=== PATIENT | male | born 1975 | race Caucasian/White ===

== ENCOUNTER 2018-06-02 22:20 | Inpatient (IN) | payer OTHER, SELFPAY ==
[2018-06-02 22:37] VITALS: BP 163/96; PULSE 77; RESP 16; TEMP 36.6; O2SAT 99; BMI 27.7
--- NOTE | 2018-06-02 22:42 | DI.RAD.S_ITS ---
PROCEDURE: XR TIBIA FIBULA RT 2V INDICATIONS: deformity TECHNIQUE: 2 views of the tibia and fibula were acquired. COMPARISON: None. FINDINGS: Bones: Comminuted mid left fibular diaphyseal fracture with large butterfly fragment (also with comminuted appearance). Oblique distal left tibial diaphyseal fracture also comminuted. Severe lateral displacement of the distal tibial fragment, at least one shaft width. There is lateral angulation of the distal fibular fragments. There is also mild anterior displacement of the dominant distal tibial fragment. Soft tissues: No suspicious soft tissue calcifications or masses. IMPRESSION: Comminuted left tibial and fibular fractures as above. Dictated by: Yaya Tong M.D. on 06/03/2018 at 7:28 Approved by: Yaya Tong M.D. on 06/03/2018 at 7:29
--- NOTE | 2018-06-02 23:41 | ED_ITS ---
HPI - Extremity Injury (Lower) General Chief Complaint: Extremity Injury, Lower Stated Complaint: Broken Lt leg Time Seen by Provider: 06/02/18 23:24 Source: patient and family Limitations: no limitations History of Present Illness HPI Narrative: This is a 43-year-old male who comes to the emergency department with suspected lower extremity fracture. Patient states that he was walking and slipped going downhill. He sort of twisted his leg and went down with all of his weight on it. He has deformity of the lower extremity. He had quite a bit of pain. He did receive fentanyl EN route with EMS which helped although it made him quite nauseated he defers any additional pain medicine at this time. He does have some decreased sensation in his toes but he states that is chronic secondary to his insulin-dependent diabetes. He does have feeling in the upper portion of the foot and that has not changed. He denies any other injuries, he denies hitting his head, no neck or back pain. Denies any other extremity injury. He states that his blood sugar was high with EMS. Per nursing it was 260, he states that he did not ingest his insulin pump dosage. His last meal was about 530 this evening. Related Data Home Medications Medication Instructions Recorded Confirmed losartan 50 mg PO DAILY 06/03/18 06/03/18 Allergies Allergy/AdvReac Type Severity Reaction Status Date / Time No Known Drug Allergies Allergy Verified 06/03/18 02:18 Review of Systems Review of Systems All systems reviewed & are unremarkable except as noted in HPI and below ENT Ears, Nose, Mouth, and Throat: Denies neck pain Cardiovascular Denies syncope and Denies dyspnea Respiratory Reports cough and Denies dyspnea Gastrointestinal Gastrointestinal: Reports nausea and Reports vomiting Musculoskeletal Reports as per HPI, Denies back pain, Reports deformity, Denies neck pain and Reports numbness Integumentary/Breasts Denies bleeding lesions Neurologic Denies syncope and Reports numbness [facility] Medical History Hypertension (Acute) Insulin dependent diabetes mellitus (Acute) 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 HEENT: Head normocephalic, atraumatic, EOMI, pupils reactive, face symmetric, moist mucous membranes NECK: Supple, full range of motion CARDIOVASCULAR: Regular rate and rhythm without murmurs, rubs or gallops. RESPIRATORY: Breath sounds equal bilaterally, no wheezes rales or rhonchi. ABDOMEN: Soft, nontender. Normoactive bowel sounds all 4 quadrants. No guarding or rebound, rigidity, no mass, patient has insulin pump. EXTREMITIES: Patient's left lower extremity is in a splint, he has some external rotation of the foot which is not and alignment with his lower leg, patient does have a pulse Doppler, he has decreased sensation over the toes which he states is chronic and normal. He does have sensation to light touch over the dorsum of the foot and leg. No edema is noted. There is no bruising noted. NEUROLOGICAL: Cranial nerves II through XII grossly intact. Moving all other extremities SKIN: Warm, dry, no petechiae, no rashes or lesions. Initial Vital Signs Initial Vital Signs: Vital Signs Temperature 97.8 F 06/02/18 22:37 Pulse Rate 77 06/02/18 22:37 Respiratory Rate 16 06/02/18 22:37 Blood Pressure 163/96 H 06/02/18 22:37 Pulse Oximetry 99 06/02/18 22:37 Procedures Orthopedic Fracture Reduction Fracture #1: Time Out Performed: Yes Side: left Fracture Reduction Location: tibia and fibula Analgesia: procedural sedation Technique: direct manipulation Post Reduction X-rays Demonstrate: acceptable reduction Post-reduction neuro exam: intact and no change Post-reduction vascular exam: intact Splint Applied: Yes Patient Tolerated Procedure: Well (patient did have hypoventilation and was bagged for several minutes. Patient then resumed ventilations on his own. ) Procedural Sedation Patient Age: Patient is 5yrs or older Indication: fracture/dislocation reduction ASA Class: II Mallampati Airway Classification: Class II Time of Last PO Intake: 17:45 Preparation: air sampling and monitoring applied, pulse oximeter, capnometry used, supplemental O2 applied, suction/airway equipment at bedside and IV secured Ketamine dose (mg): 150 ED Sedation Level: Moderate (Concious) Complications: hypoventilation (patient had decreased CO2 and was bagged for several minutes. Patient then resumed breathing on own with co2 levels appropriate. ) Interventions: Assist by BVM and Oxygen applied Course Orders Ordered: ED Orders 06/02/18 22:42 XR tibia fibula LT 2V Stat 06/03/18 00:32 XR tibia fibula LT 2V Stat 06/03/18 01:17 Basic Metabolic Panel Stat Complete Blood Count AUTO DIFF Stat Partial Thromboplastin Time Stat Prothrombin Time INR Stat 06/03/18 02:35 Consult to Discharge Planning Routine Acetaminophen (Tylenol) 1,000 mg PO Q8HR PRN PRN Reason: Pain, Moderate (4-6) Hydrocodone Bitart/Acetaminophen ([place] 5/325) 2 tab PO Q4HR PRN PRN Reason: Pain, Severe (7-10) Heparin Sodium (Porcine) (Heparin) 5,000 unit SUBCUT BID LUCIE Sodium Chloride (Normal Saline 0.9%) 1,000 mls @ 100 mls/hr IV CONT LUCIE Stop: 06/03/18 12:29 Ibuprofen (Advil) 600 mg PO Q8HR PRN PRN Reason: Pain, Moderate (4-6) Consultations Consultation #1: Dr. Yuan, he asked that patient be admitted for repair. Patient does have insulin-dependent diabetes so will be admitted to medicine with orthopedic consultation. Time: 00:47 Consultation #2: Spoke with the [facility]ist who accepts patient for observation and management of insulin-dependent diabetes. Labs ordered, CBC , BMP and coags. Patient's sugar is 260 in the department. Time: 01:10 Vital Signs - 8 hr 06/02/18 22:37 06/03/18 00:10 06/03/18 00:25 Temperature 97.8 F Pulse Rate 77 89 105 H Respiratory Rate 16 18 20 Blood Pressure 163/96 H Blood Pressure [Right Arm] 215/119 H Pulse Oximetry 99 100 06/03/18 00:31 06/03/18 00:36 06/03/18 00:42 Temperature Pulse Rate 108 H 95 H 92 H Respiratory Rate 22 14 12 Blood Pressure Blood Pressure [Right Arm] 210/112 H 210/104 H 191/102 H Pulse Oximetry 100 100 100 06/03/18 00:49 06/03/18 01:23 06/03/18 01:55 Temperature Pulse Rate 86 84 84 Respiratory Rate 12 18 12 Blood Pressure 156/98 H Blood Pressure [Right Arm] 170/98 H 153/91 H Pulse Oximetry 100 100 100 06/03/18 02:00 Temperature 97.8 F Pulse Rate 82 Respiratory Rate 21 Blood Pressure 148/96 H Blood Pressure [Right Arm] Pulse Oximetry 100 MDM - Extremity Injury (Lower) Lab Data Attestation: I reviewed the patient's lab results. Result diagrams: 06/03/18 01:17 06/03/18 01:17 Lab Results 06/03/18 06/03/18 06/03/18 Range/Units 01:17 01:17 01:17 WBC 11.0 (4.5-11.0) X10^3/uL RBC 4.39 L (4.5-5.9) X10^6/uL Hgb 13.0 L (13.5-17.5) g/dL Hct 37.3 L (41-53) % MCV 85.0 (80-100) fL MCH 29.7 (26-34) PG MCHC 34.9 (30-36) % RDW 13.3 (11.6-14.8) % Plt Count 181 (150-400) X10^3/uL Neut % (Auto) 84.8 H (50-75) % Lymph % (Auto) 10.3 L (25-40) % [place] % (Auto) 4.2 (3-14) % Eos % (Auto) 0.3 L (2-4) % Baso % (Auto) 0.4 (0-2) % Neut # (Auto) 9400 H (8814-0316) /uL PT 11.5 (10.1-12.7) SECONDS INR 1.1 (0.9-1.3) APTT 22 L (26.4-36.2) SECONDS Sodium 137 (137-145) mmol/L Potassium 5.1 (3.4-5.1) mmol/L Chloride 106 (98-107) mmol/L Carbon Dioxide 24 (22-32) mmol/L BUN 24 H (9-20) mg/dL Creatinine 1.50 H (0.66-1.25) mg/dL Estimated GFR 51.3 L (>60) mL/min BUN/Creatinine Ratio 16.0 (6-22) Glucose 308 H (70-100) mg/dL Calcium 9.0 (8.4-10.2) mg/dL Point of Care Testing Glucose POC 292 Imaging Data Left lower extremity x-ray: Attestation: I personally reviewed and interpreted this imaging study as follows: My impression: Patient has midshaft comminuted swells angulated spiral fracture of the fibula. Patient also has a distal tibial fracture that appears to be spiral with misalignment. Tib-fib left: Attestation: I personally reviewed and interpreted this imaging study as follows: My impression: Post reduction film. There is somewhat improved alignment of fractures. MDM Narrative Medical decision making narrative: Patient tolerated conscious sedation with the some improvement of alignment although he did have some hypoventilation and was bagged for several minutes. Um patient's mother as well as patient however made aware of this for future sedations. Dr. Yuan was consulted and patient asked to be admitted for repair. Patient has insulin-dependent diabetes so Dr. Casper was consulted for hospitalist management. Patient had labs ordered, Accu-Chek was 260. Patient continues to have his insulin pump in place. Discharge Plan Departure Patient Disposition: Admitted as Observation Clinical Impression: Fracture of tibia and fibula, Insulin dependent diabetes mellitus Discharge Date/Time: 06/03/18 01:57 Interventions: ED Discharge Assessment Last Done: 06/03/18 01:55 Admit Date/Time: 06/03/18 01:36 Admit Provider: Delia Casper
[2018-06-03] VITALS (36 sets, daily range): BP systolic 129–215; BP diastolic 86–119; PULSE 80–108; RESP 8–22; TEMP 36.2–36.8; O2SAT 96–140; BMI 27.1
--- NOTE | 2018-06-03 | DI.RAD.S_ITS ---
PROCEDURE: XR TIBIA FIBULA RT 2V INDICATIONS: LEFT TIBIAL NAILING TECHNIQUE: 4 intraoperative fluoroscopic images of the tibia and fibula were acquired. COMPARISON: [facility], CR, XR TIBIA FIBULA LT 2V, 06/02/2018, 23:47. FINDINGS: Intraoperative fluoroscopic images of left tibia and fibula shows internal fixation of distal tibial shaft with intramedullary jonathan and fixation screws in place. Alignment of left lower leg is anatomic. IMPRESSION: Fluoroscopy guidance was provided intraoperatively for internal fixation of distal tibial shaft. Dictated by: Pedro Valdez M.D. on 06/03/2018 at 18:25 Approved by: Pedro Valdez M.D. on 06/03/2018 at 18:27
--- NOTE | 2018-06-03 00:32 | DI.RAD.S_ITS ---
PROCEDURE: XR TIBIA FIBULA RT 2V INDICATIONS: post-reduction TECHNIQUE: 2 views of the tibia and fibula were acquired. COMPARISON: [facility], CR, XR TIBIA FIBULA LT 2V, 06/02/2018, 22:46. FINDINGS: Bones: There is improved alignment, following status post tibial and fibular fracture reduction and placement of cast. Mild residual posterior and lateral displacement of dominant tibial fracture fragment. Soft tissues: No suspicious soft tissue calcifications or masses. IMPRESSION: Improved alignment, status post reduction of tibial and fibular fractures, and placement of cast. Dictated by: Yaya Tong M.D. on 06/03/2018 at 7:44 Approved by: Yaya Tong M.D. on 06/03/2018 at 7:45
[2018-06-03 01:32] LABS: Add Manual Diff / Slide Review NO; Basophils Percent Auto 0.4 % (0-2); Eosinophils Percent Auto 0.3 % (2-4); Hematocrit 37.3 % (41-53); INR 1.1 (0.9-1.3); Lymphocytes Percent Auto 10.3 % (25-40); Mean Corpuscular HGB Conc 34.9 % (30-36); Mean Corpuscular Hemoglobin 29.7 PG (26-34); Monocytes Percent Auto 4.2 % (3-14); Neutrophils Absolute Auto 9400 /uL (3000-5900); Neutrophils Percent Auto 84.8 % (50-75); Platelet Count 181 X10^3/uL (150-400); Prothrombin Time 11.5 SECONDS (10.1-12.7); Red Blood Cell Count 4.39 X10^6/uL (4.5-5.9); Red Cell Distribution Width 13.3 % (11.6-14.8)
[2018-06-03 01:35] LABS: PTT Partial Thromboplastin Tim 22 SECONDS (26.4-36.2)
[2018-06-03 01:37] LABS: Blood Urea Nitrogen 24 mg/dL (9-20); Carbon Dioxide 24 mmol/L (22-32); Chloride 106 mmol/L (98-107); Estimated Glomerular Filt Rate 51.3 mL/min (>60); Glucose 308 mg/dL (70-100); HEMOLYSIS < 15 (0-50); Potassium 5.1 mmol/L (3.4-5.1); Sodium 137 mmol/L (137-145)
--- NOTE | 2018-06-03 02:38 | PM.HP.1 ---
History of Present Illness Date Patient Seen: 06/03/18 Time Patient Seen: 02:00 Chief complaint: left leg pain Narrative: The patient is a 43-year-old male with PMH significant for HTN, DM 1T w/ sequela for diabetic retinopathy and neuropathy. Patient presented to the ED on 06/02/2018 with complaints of left lower extremity pain Earlier in the day patient was walking downhill, slipped on wet grass and fell onto his left lower extremity. He was unable to get up on his own. Reports pain with movement of the LLE. Associated symptoms include: diminished sensation and diminished ROM of the affected extremity. Denies loss of consciousness or injury to the head. ED w/u revealed a fracture and misalignment of the distal tibia and fibula, consequently he underwent a successful reduction of the orthopedic fraction while in the ED. No prior known fractures or recurrent falls. Pain was treated w/ Fentanyl, from which he experienced GI side effects. Patient denies headache, dizziness, lightheadedness, and abdominal pain. No known underlying history of cardiac events, cerebrovascular events, or thrombosis. He is known to have a degree of renal insufficiency, CKD Stage III w/ sCr 1.5. Reports a fair control of his diabetes w/ HgbA1C in the 7% range (on an insulin pump). Prior to the event patient reports adequate exercise tolerance / opacity, able to perform at least 4 METs of activities of daily living without difficulty. 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) Family & Social History Family History: Reviewed 06/03/[address] Social History: household members none Prior Living Arrangements Apartment/Condo Safety & Behavioral: Feels Safe in Current Yes Environment Been Physically Hurt or No Threatened By a Person Suicidal Ideation Description None Suicide Plan Description No Plan Tobacco & Substance use: Smoking Status Never smoker alcohol intake frequency holiday/special occasion Substance Use Type does not use Meds Home Medications Medication Instructions Recorded Confirmed Type losartan 50 mg PO DAILY 06/03/18 06/03/18 History Allergies Allergy/AdvReac Type Severity Reaction Status Date / Time No Known Drug Allergies Allergy Verified 06/03/18 02:18 Review of Systems Review of Systems All systems reviewed & are unremarkable except as noted in HPI and below Musculoskeletal Musculoskeletal: Reports deformity, Reports limited range of motion and Reports tingling Neurologic Neurologic: Reports tingling Exam Vital Signs (past 8 hours): - 06/02/18 22:37 06/03/18 00:10 06/03/18 00:25 Temperature 97.8 F Pulse Rate 77 89 105 H Respiratory Rate 16 18 20 Blood Pressure 163/96 H Blood Pressure [Right Arm] 215/119 H Pulse Oximetry 99 100 06/03/18 00:31 06/03/18 00:36 06/03/18 00:42 Temperature Pulse Rate 108 H 95 H 92 H Respiratory Rate 22 14 12 Blood Pressure Blood Pressure [Right Arm] 210/112 H 210/104 H 191/102 H Pulse Oximetry 100 100 100 06/03/18 00:49 06/03/18 01:23 06/03/18 01:55 Temperature Pulse Rate 86 84 84 Respiratory Rate 12 18 12 Blood Pressure 156/98 H Blood Pressure [Right Arm] 170/98 H 153/91 H Pulse Oximetry 100 100 100 06/03/18 02:00 Temperature 97.8 F Pulse Rate 82 Respiratory Rate 21 Blood Pressure 148/96 H Blood Pressure [Right Arm] Pulse Oximetry 100 Oxygen Delivery Method Room Air Narrative Exam Narrative: Constitutional: NAD Head: NC/AD EENT: Gaze conjugate, pupils equal and reactive, sclera anicteric, external ears intact without epistaxis, Oropharynx without exudate or lesions Neck: No JVD Chest / Resp: Equal chest rise, CTAB, respiratory effort unlabored, on supplemental O2 for comfort CV: S1S2, no murmur GI: soft, NT, ND, normoactive BS, no organomegaly Skin: warm, dry, intact; no lesions or bruising noted Neuro: AOx3, no focal neurological deficits Extremity: RLE - no edema, slightly cool to touch, sensation timinished, pulse 1+ (palpable) LLE - in a cast, toes w/ diminished sensation Psych: normal mood and affect Objective Labs Result Diagrams: 06/03/18 01:17 06/03/18 01:17 Labs: Laboratory Results - last 24 hr 06/03/18 06/03/18 06/03/18 01:17 01:17 01:17 WBC 11.0 RBC 4.39 L Hgb 13.0 L Hct 37.3 L MCV 85.0 MCH 29.7 MCHC 34.9 RDW 13.3 Plt Count 181 Neut % (Auto) 84.8 H Lymph % (Auto) 10.3 L [place] % (Auto) 4.2 Eos % (Auto) 0.3 L Baso % (Auto) 0.4 Neut # (Auto) 9400 H PT 11.5 INR 1.1 APTT 22 L Sodium 137 Potassium 5.1 Chloride 106 Carbon Dioxide 24 BUN 24 H Creatinine 1.50 H Estimated GFR 51.3 L BUN/Creatinine Ratio 16.0 Glucose 308 H Calcium 9.0 Assessment & Plan Plan: Assessment/Plan Narrative: Tibia and fibula fracture - consult orthopedic surgery (ED has spoken to orthopedic surgery) - NPO, for potential surgery in am - IVF x1L, then d/c or re-evaluate volume status - Neurovascular checks, LLE, Q4H - CBC, BMP, coags - Supportive care: pain control, anti-emetics prn - VTE prophylaxis, starting post-op (ordered to be given 06/03 at 2100) Acute Pain Patient wishes to avoid opioids due to GI discomfort - Tylenol 1000 mg Q8H prn - Will need to avoid or be mindful with NSAIDs d/t renal insufficiency DM 1T w/ hyperglycemia (on an insulin pump) - AC/HS accu-checks - Will allow patient to adjust his own pump and monitor glucose, if elevated then will place on a SSI CKD III (sCr 1.5 / GFR 51.3) - Trend renal fx and electrolytes - Hold ARB, not recommended for sCr > 1.5 - Avoid nephrotoxic agents and avoid renal hypoperfusion - IVF Essential HTN, controlled - Trend BP Quality VTE Deep Vein Thrombosis/Pulmonary Embolism Present on Admission: No
[2018-06-03] MEDS: SODIUM CHLORIDE 0.9% 1,000 ML 100 ML IV ×2 (02:50→13:13)
--- NOTE | 2018-06-03 03:17 | PC.NURSE ---
0200 Pt. admitted from ER, accompanied by his parents. LLE immobilizer inplaced & elevated with pillow. Bilateral neuropathy to BLE, able to wiggle his left toes. Reported pain level 6/10, but declined any pain meds. @ this time. Had Own Insulin Pump, to left lower abdomen, NPO at this time for possible surgery this morning. Oriented to his call light, bed & TV controls, placed on fall precautions. Encouraged not to get OOB without any assistance, call light within reached & bed alarm activated. Will monitor.
--- NOTE | 2018-06-03 06:24 | PC.NURSE ---
0551 CBG was 286 Pt. gave self 3.5 units bolus, currently pump infusing 1.4 units/hr. per pt. report & I will change to 2 units/hr @ 0800. Instructed to log Insulin pump adjustment & bolus. Requested to change CBG every 4-6 hrs. while NPO. Will report to day RN. declined pain meds. at this time, ice pack applied to LLE's. RD Casper came to see pt. this morning.
[2018-06-03 08:47] LABS: Add Manual Diff / Slide Review NO; Basophils Percent Auto 0.5 % (0-2); Eosinophils Percent Auto 0.7 % (2-4); Hematocrit 31.6 % (41-53); Hemoglobin 11.2 g/dL (13.5-17.5); Lymphocytes Percent Auto 18.3 % (25-40); Mean Corpuscular HGB Conc 35.5 % (30-36); Mean Corpuscular Volume 84.4 fL (80-100); Monocytes Percent Auto 6.5 % (3-14); Neutrophils Absolute Auto 6600 /uL (3000-5900); Platelet Count 166 X10^3/uL (150-400); Red Blood Cell Count 3.74 X10^6/uL (4.5-5.9); Red Cell Distribution Width 13.2 % (11.6-14.8)
[2018-06-03 08:59] LABS: BUN Creatinine Ratio 16.2 (6-22); Blood Urea Nitrogen 21 mg/dL (9-20); Calcium 7.3 mg/dL (8.4-10.2); Carbon Dioxide 24 mmol/L (22-32); Chloride 110 mmol/L (98-107); Estimated Glomerular Filt Rate > 60.0 mL/min (>60); Glucose 206 mg/dL (70-100); HEMOLYSIS < 15 (0-50); Potassium 3.8 mmol/L (3.4-5.1); Sodium 142 mmol/L (137-145)
--- NOTE | 2018-06-03 09:34 | PT.IPNOTE ---
Physical Therapy Treatment Note Notes Pt is undergoing surgical repair of L tib/fx fracture today at [address] Yuan. Will hold PT eval until tomorrow.
--- NOTE | 2018-06-03 12:21 | P.PN_ITS ---
Subjective Date Patient Seen: 06/03/18 Time Patient Seen: 12:13 Interval history: FOLLOW UP ON L TIBIAL/FIBULAR FRACTURES, WELL HTN, DM, JENNIFER Patient seen at bedside. Doing well. No overnight events. Will be going for surgery later on today. Currently NPO Exam Vital Signs (past 8 hours): - 06/03/18 05:40 06/03/18 07:00 06/03/18 09:01 Temperature 98.3 F 98.1 F Pulse Rate 83 86 Respiratory Rate 20 16 Blood Pressure 151/94 H 148/91 H Pulse Oximetry 99 99 99 Oxygen Delivery Method Room Air Narrative Exam Narrative: General: No acute distress, AAO x3 HEENT: PERRLA bilaterally, EOMI bilaterally Neck: Supple, no LAD or JVD CV: Regular rate rhythm, no murmurs or gallops Respiratory: Clear to auscultation bilaterally, no wheezing or crackles GI: Positive bowel sounds in all quadrants, nontender, soft, no organomegaly. Insulin pump present Skin: Warm, dry, no lesions or bruising present Neuro: No focal deficits Musculoskeletal: Moves all extremities bilaterally. Left lower extremity is in a cast Objective Labs Result Diagrams: 06/03/18 Unknown 06/03/18 Unknown Labs: Laboratory Results - last 24 hr 06/03/18 06/03/18 06/03/18 01:17 01:17 01:17 WBC 11.0 RBC 4.39 L Hgb 13.0 L Hct 37.3 L MCV 85.0 MCH 29.7 MCHC 34.9 RDW 13.3 Plt Count 181 Neut % (Auto) 84.8 H Lymph % (Auto) 10.3 L [place] % (Auto) 4.2 Eos % (Auto) 0.3 L Baso % (Auto) 0.4 Neut # (Auto) 9400 H PT 11.5 INR 1.1 APTT 22 L Sodium 137 Potassium 5.1 Chloride 106 Carbon Dioxide 24 BUN 24 H Creatinine 1.50 H Estimated GFR 51.3 L BUN/Creatinine Ratio 16.0 Glucose 308 H Calcium 9.0 06/03/18 06/03/18 Unknown Unknown WBC 9.0 RBC 3.74 L Hgb 11.2 L Hct 31.6 L MCV 84.4 MCH 30.0 MCHC 35.5 RDW 13.2 Plt Count 166 Neut % (Auto) 74.0 Lymph % (Auto) 18.3 L [place] % (Auto) 6.5 Eos % (Auto) 0.7 L Baso % (Auto) 0.5 Neut # (Auto) 6600 H PT INR APTT Sodium 142 Potassium 3.8 D Chloride 110 H Carbon Dioxide 24 BUN 21 H Creatinine 1.30 H Estimated GFR > 60.0 BUN/Creatinine Ratio 16.2 Glucose 206 H D Calcium 7.3 L Assessment & Plan Plan: Assessment/Plan Narrative: 1. L tibial and fibular fractures - S/P reduction in ED, with casting - Scheduled for surgery later on today - NPO at this time, with continuous IVF at 100cc/hr - Continue tylenol and norco for pain control 2. DM Type I - With neuropathy and retinopathy - On insulin pump - Monitor daily accuchecks, allow machine to do other glucose control 3. JENNIFER - Unsure if patient has CKD - improving, Cr 1.5->1.3 - Will hold Losartan in light of JENNIFER but will resume once renal function stabilizes - IVF to continue 4. Essential HTN, controlled - Continue to monitor BP Quality VTE Deep Vein Thrombosis/Pulmonary Embolism Present on Admission: No
--- NOTE | 2018-06-03 14:27 | CM.DANOTE ---
DCP/Assessment: Reviewed chart. Patient is a 43yr old male admitted to [facility] after a fall. Primary payor is 1)[place]. PCP is [facility] in [place]. Patient with h/o diabetes on insulin pump. Met with patient and parents at bedside explained CM/SW role. Patient alert and oriented, resting comfortably in bed at time of visit. Patient reports that he is scheduled to have surgery later today with Dr. Yuan. At this time d/c needs and date unknown. Patient reports that he will be staying locally with his parents during recovery. Notified patient and family that CM team would continue to follow throughout hospitalization. All appreciative, aware and agreeable. P: Anticipate home. Follow closely for d/c planning needs. DONA Johnson Discharge Planning/Care Management CM Discharge Assessment Start: 06/03/18 14:22 Freq: Status: Active Protocol: Document 06/03/18 14:22 KJS (Rec: 06/03/18 14:27 KJS [id number]) Discharge Planning Assessment Assigned Dude Wrangler DONA Johnson Contact Information Dee Perez (mother) [phone] Advance Directives? No Advance Directives on File No History Provided By Patient Parents Has Patient been admitted in last 30 No days? Prior Living Arrangements Apartment/Condo Household Members none Type of transporation used prior to Drives own vehicle admit Willing to Return to Facility? No Independent with ADL's Yes Is patient alert and oriented? Yes Caregiver for Another No Comment Insulin Pump Comment Pending Barriers to Discharge No Comment Patient going to stay at his parents residence in [place] at time of d/c. Address: [address] [place] [address] Discharge Plan Home Transportation Arrangement Family to provide transportation Additional Comment D/C needs unknown at this time . Whiteboard Updated in Patient Room with Yes name and ext. # of Dude Wrangler Review Status In Process Please Provide Date Initial DC 06/03/18 Assessment Was Performed Next Review Type Continued Stay Review
--- NOTE | 2018-06-03 16:09 | PM.PREOP ---
Pre-operative Note Interval Note Pre-op Check: Yes History & Physical Reviewed by Physician and Yes Exam Performed Changes: No
--- NOTE | 2018-06-03 16:10 | PM.CN ---
History of Present Illness Date Patient Seen: 06/03/18 Time Patient Seen: 16:11 Chief complaint: left leg pain Reason for consult: Left tib-fib fracture Requesting provider: Jessi Ward Narrative: The patient is a 43-year-old man as has the C4 evaluation treatment of the left hip it fracture. He reports he was walking down an embankment yesterday that was wet and he slipped. He felt a cracking sensation in his left leg. He had immediate pain and deformity and was unable to bear weight. X-rays at the emergency room revealed a displaced distal 3rd tib-fib fracture with a midshaft fibular fracture. He denies previous problems with the leg. He is a type 1 diabetic. He does have peripheral neuropathy of the lower extremity. 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) Family History Grandfather Heart disease Heart attack Social History household members: none Smoking Status: Never smoker Meds Home Medications Medication Instructions Recorded Confirmed Type losartan 50 mg PO DAILY 06/03/18 06/03/18 History Allergies Allergy/AdvReac Type Severity Reaction Status Date / Time fentanyl AdvReac Intermediate Nausea Verified 06/03/18 15:30 Review of Systems Review of Systems All systems reviewed & are unremarkable except as noted in HPI and below Exam Vital Signs (past 8 hours): - 06/03/18 09:01 06/03/18 12:42 06/03/18 15:14 Temperature 98.2 F 97.9 F Pulse Rate 80 89 Respiratory Rate 16 16 Blood Pressure 129/90 155/89 H Pulse Oximetry 99 100 100 Oxygen Delivery Method Room Air Const General: cooperative Orientation: alert and oriented x3 Cardio Rate: regular rate Rhythm: regular rhythm Skin General: no rashes or lesions noted Neuro Other: The patient does report decreased sensation in both lower extremities. Motor strength is grossly intact were testable. He is in a lower leg splint. Extrem Other: The lower leg is in a splint. The toenails are thickened and discolored. No significant skin lesions are noted. Compartments are supple. Objective Labs Result Diagrams: 06/03/18 Unknown 06/03/18 Unknown Labs: Laboratory Results - last 24 hr 06/03/18 06/03/18 06/03/18 01:17 01:17 01:17 WBC 11.0 RBC 4.39 L Hgb 13.0 L Hct 37.3 L MCV 85.0 MCH 29.7 MCHC 34.9 RDW 13.3 Plt Count 181 Neut % (Auto) 84.8 H Lymph % (Auto) 10.3 L [place] % (Auto) 4.2 Eos % (Auto) 0.3 L Baso % (Auto) 0.4 Neut # (Auto) 9400 H PT 11.5 INR 1.1 APTT 22 L Sodium 137 Potassium 5.1 Chloride 106 Carbon Dioxide 24 BUN 24 H Creatinine 1.50 H Estimated GFR 51.3 L BUN/Creatinine Ratio 16.0 Glucose 308 H Calcium 9.0 06/03/18 06/03/18 Unknown Unknown WBC 9.0 RBC 3.74 L Hgb 11.2 L Hct 31.6 L MCV 84.4 MCH 30.0 MCHC 35.5 RDW 13.2 Plt Count 166 Neut % (Auto) 74.0 Lymph % (Auto) 18.3 L [place] % (Auto) 6.5 Eos % (Auto) 0.7 L Baso % (Auto) 0.5 Neut # (Auto) 6600 H PT INR APTT Sodium 142 Potassium 3.8 D Chloride 110 H Carbon Dioxide 24 BUN 21 H Creatinine 1.30 H Estimated GFR > 60.0 BUN/Creatinine Ratio 16.2 Glucose 206 H D Calcium 7.3 L Assessment & Plan Plan: Assessment/Plan Narrative: Patient has a displaced left tib-fib fracture. I discussed the nature of the injury with the patient and further treatment options. I have recommended stabilization with an IM nail. We discussed the nature of the procedure including the risks, benefits, alternatives, postoperative course and expected outcome. We did discuss the potential risk of compartment syndrome. The patient is at a higher risk for infection given his diabetes. Time Spent With Patient Time with patient: less than 15 minutes
[2018-06-03] MEDS: CEFAZOLIN 2 GM/100 ML FROZ.PIGGY IV (16:27)
--- NOTE | 2018-06-03 17:00 | SUR.OPER ---
Supine on padded OR bed, head on pillow, arms secured on padded arm boards at <90 degrees abduction, legs uncrossed, safety belt at waist, tape over blanket over right lower leg Left leg on triangular wedge under control of surgeon. Lead apron over gonads.
[2018-06-03] MEDS: BUPIVACAINE 0.5% W/ EPI (PF) VIAL 30 ML INJ (17:19)
--- NOTE | 2018-06-03 18:05 | PM.OP.1 ---
Operative Date/Time/Diagnoses Date of procedure: 06/03/18 Time of procedure: 18:06 Pre-op diagnosis: Left tib-fib fracture Post-op diagnosis: same Procedure & Clinicians Procedure: IM nailing left tibia Same procedure as scheduled: Yes Indications: The patient presents today for IM nailing of left tibial fracture. The nature of the procedure including the risks and benefits, alternatives, postoperative course and expected outcome were discussed and all questions answered. Consent was obtained. Operative site confirmed and marked. Surgeon: Pastor Yuan Director Transition: María Andrew Anesthesia Type: General and Local Operative Notes Closure Type: primary Specimen(s): none sent Implants & Drains: [employer] IM tibial nail 40 cm by 10 mm with a 2 cm and capped. Statically locked with 2 proximal and 2 distal interlocking screws. Applied: implant(s) Estimated Blood Loss (mL): 20 Blood products transfused: none Tourniquet time (min): 70 Procedure in detail: The patient was taken the operative suite placed under general anesthesia. Prophylactic antibiotics were given prior to surgery. The leg was then prepped and draped in usual sterile fashion. The leg was exsanguinated with an Esmarch dressing and tourniquet raised 250 torr. A 3 cm incision was made over the medial aspect of the patellar tendon. Electrocautery was used to dissect through the fascia and to the proximal tibia. And all was used to make a starting point. Ball tipped guidewire was then placed down across the fracture and to the physeal remnant of the tibia. The pain was in the center center position as checked on AP and lateral fluoroscopy. Sequential reaming was then carried out to 11.5 mm. There was significant bony chatter with the last 2 Reamers. The 40 cm nail was then mallet into place to the appropriate depth. Two medial to lateral distal interlocking screws were placed using the electronic guide. The position of the screws was checked on AP and lateral fluoroscopy. The fracture was well reduced but the nail was slightly impacted in a retrograde fashion to compress the fracture. Two static proximal interlocking screws were then placed using the guide. A 2 cm and cap was placed. Final AP and lateral fluoroscopy showed excellent position of the fracture and nail. The wounds were copiously irrigated. They were anesthetized with 20 cc of 0.5% Marcaine with epinephrine. The fascia was closed with 0 Vicryl. Subcutaneous tissue closed with 2 Vicryl and the skin with abigail. Xeroform and sterile gauze dressings were applied. A posterior splint was applied to the lower leg. The patient tolerated procedure well and was returned to recovery room in good condition. Complications: none Condition: stable Disposition: PACU Plan for aftercare: Nonweightbearing for 6-8 weeks. Clinic follow-up in 2 weeks for staple removal. Repeat x-rays will be taken and he will be switched to a Western walker at that time.
--- NOTE | 2018-06-03 18:30 | SUR.PHASEI ---
Dr Adair aware of CBG and BP readings on arrival. Patient to adjust pump to treat CBG. Analgesic given with elevated BP and c/o pain at 10/10.
[2018-06-03] MEDS: HYDROMORPHONE 2 MG INJ 0.25 MG IV ×2 (18:38→18:43)
[2018-06-03] MEDS: ONDANSETRON 4 MG/2 ML INJ IV ×2 (18:38→20:35)
--- NOTE | 2018-06-03 18:47 | SUR.PHASEI ---
Patient giving self two units of insulin at this time via pump.
[2018-06-03] MEDS: LACTATED RINGERS 1,000 ML 42 ML IV (18:52)
[2018-06-03] MEDS: HYDROMORPHONE 0.5 MG INJ IV ×3 (18:53→19:14)
[2018-06-03] MEDS: ACETAMINOPHEN 325 MG TABLET 975 MG PO ×2 (18:59→23:52)
--- NOTE | 2018-06-03 19:07 | SUR.PHASEI ---
Remains in PACU to assess effects of analgesics based on DR Matthews concern over respiratory compromise. So far has tolerated meds well.
--- NOTE | 2018-06-03 19:14 | SUR.PHASEI ---
Have given a total of 2mg of Dilaudid and 975mg TYlenol. Still c/o pain between 8 & 10. No respiratory compromised seen. FLACC level would be 0. The neuropathy history is noted. Will stop at this point and send to AC as anaaesthesia fields the patient meets criteria for PACU discharge. Stable VS, wide awake.
[2018-06-03] MEDS: PREGABALIN 75 MG CAPSULE PO (19:39)
--- NOTE | 2018-06-03 19:39 | SUR.PHASEI ---
Spoke with Dr Adair by phone in the OR and discussed pain issues. Order for Logan meier and given.
--- NOTE | 2018-06-03 20:08 | PC.NURSE ---
VIRALES patient arrived back in room, from OR at 1949. c/o 9.5/10 pain in left leg (surgical area). Reports very minimal nausea, but refusing any medication for it. SCD applied to right leg. pt's CBG in PACU was 204 (pt administered 2U), then at 1930 was at 240 (pt then administered 2.65U) plus a dose of Lyrica from PACU team. Family at bedside.
[2018-06-03] MEDS: ASPIRIN EC 81 MG TABLET PO (23:52)
[2018-06-04] VITALS (11 sets, daily range): BP systolic 105–153; BP diastolic 84–96; PULSE 86–100; RESP 14–18; TEMP 36.6–37; O2SAT 94–99
--- NOTE | 2018-06-04 00:09 | PC.NURSE ---
Addendum entered by Kourtney Case R.N. 06/04/18 06:42: Medicated with Oxycodone at 0431 for 7/10 left lower leg pain and ice applied. Stated pain is about the same but declines offer of any other pain medication. Have had continuous pulse oximeter on due to respiratory problems in ER following administration of narcotics and sats have been maintaining in upper 90's. at bedside. Original Note: Patient is alert and oriented. Breath sounds CTA with RA sat of 99%. HRR. Denies nausea at this time so medicated with 2100 meds. BT present and states he has passed some flatus since return from surgery. Has not yet voided so is aware at 0400 we will bladder scan if not urinated by then. Is able to move self in bed to relieve pressure but cannot move left leg. States pain is 8/10 but tolerable (given 2100 Tylenol); is aware he can have additional pain meds if pain remains high. CBG checked per patient request and was 180 so he self administered 0.5 units per insulin pump. Chronic neuropathy in bilateral toes and is unchanged. Pedal pulses intact. Soft cast/damian to left leg is intact with sanguinous drainage noted on medial aspect of ankle; outlined to monitor. SCD applied to right leg at shift change. Fall risk score is high and bed alarm is activated. Current activity order is bedrest.
[2018-06-04] MEDS: CEFAZOLIN 2 GM/100 ML FROZ.PIGGY IV ×2 (01:15→09:53)
[2018-06-04] MEDS: SODIUM CHLORIDE 0.9% 250 ML 21 ML IV ×2 (01:15→09:59)
[2018-06-04] MEDS: SODIUM CHLORIDE 0.9% FLUSH 10 ML IV ×6 (01:16→20:17)
[2018-06-04] MEDS: OXYCODONE IR 10 MG TABLET PO (04:31)
[2018-06-04 05:44] LABS: Hematocrit 31.9 % (41-53); Hemoglobin 11.2 g/dL (13.5-17.5); Mean Corpuscular HGB Conc 35.1 % (30-36); Mean Corpuscular Hemoglobin 30.1 PG (26-34); Mean Corpuscular Volume 85.7 fL (80-100); Platelet Count 152 X10^3/uL (150-400); Red Blood Cell Count 3.72 X10^6/uL (4.5-5.9); Red Cell Distribution Width 13.2 % (11.6-14.8); White Blood Cell Count 9.5 X10^3/uL (4.5-11.0)
[2018-06-04] MEDS: ACETAMINOPHEN 325 MG TABLET 975 MG PO ×3 (08:01→21:28)
[2018-06-04] MEDS: ASPIRIN EC 81 MG TABLET PO ×2 (09:51→20:11)
[2018-06-04] MEDS: KETOROLAC 10 MG TABLET PO (09:52)
[2018-06-04] MEDS: LOSARTAN 50 MG TABLET PO (09:52)
--- NOTE | 2018-06-04 10:08 | PM.PNPO.1 ---
Subjective Date Patient Seen: 06/04/18 Time Patient Seen: 10:08 Interval history: Hospital day 2, postop day 1 following left tibial-fibular fracture with tibial IM nail done 06/03/[address] Yuan. Patient has been getting oxycodone for pain but does not like the affects of the medication. He would like to try other nonnarcotic pain medications. He was not on any pain medication prior to his hospitalization. He is diabetic, on insulin pump. Exam Vital Signs (past 8 hours): - 06/04/18 03:56 06/04/18 07:00 06/04/18 09:50 Temperature 98.0 F 98.3 F Pulse Rate 92 H 87 100 H Respiratory Rate 18 16 Blood Pressure 142/90 H 145/91 H 153/94 H Pulse Oximetry 99 99 06/04/18 09:52 Temperature Pulse Rate 100 H Respiratory Rate Blood Pressure 153/94 H Pulse Oximetry Oxygen Delivery Method Room Air Narrative Exam Narrative: Alert, oriented no acute distress resting in bed. Left leg. There is a long posterior leg splint in place with Oneil wrap. Small amount of drainage to the medial ankle on the dressing. Good blanching and movement of all toes. Patient does have diabetic neuropathy and no sensation to his toes. Objective Labs Result Diagrams: 06/04/18 05:20 06/03/18 Unknown Labs: Laboratory Results - last 24 hr 06/04/18 05:20 WBC 9.5 RBC 3.72 L Hgb 11.2 L Hct 31.9 L MCV 85.7 MCH 30.1 MCHC 35.1 RDW 13.2 Plt Count 152 Assessment & Plan Post-op (1) Insulin dependent diabetes mellitus: Current Visit: Yes Status: Acute Postoperative Procedures Operation Date: 06/03/18 15:45 Actual Procedures Side Surgeon p IM nail tib/fib fx Left Pastor Yuan MD Plan: Will try patient on tramadol 50 mg 1-2 tabs q.6h as needed pain and Toradol 10 mg q.8h as needed instead of narcotic. He does have Hammond catheter in place and will try to remove that today and see if he is able to void. His plan is to go stay with his mother and stepfather on discharge to home. He is to be nonweightbearing to his left leg for 6-8 weeks postop. He is to return to office 2 weeks postop for staple removal and x-rays and placed in a walker boot. Quality VTE Deep Vein Thrombosis/Pulmonary Embolism Present on Admission: No
--- NOTE | 2018-06-04 10:52 | PC.NURSE ---
Addendum entered by Jyoti Hoyt R.N. 06/04/18 14:43: Correction to below, 0700 BG fingerstick was 185. Original Note: Addendum entered by Jyoti Hoyt R.N. 06/04/18 13:59: Pt's BG finger stick at 1120 was 346, pt gave himself 6units from his insulin pump. Pt having pain issues throughout shift. Pain in AM reported as 8/10, increased to 10/10 , pt tearing, facial grimacing around 1210. Dilaudid IV given X2 at 1220 and 1325 (7/10 pain). upon reassessment pain 5-6/10. Ice bag on left leg prn. Repositioned on pillows for elevation. Bed tilt used to off load pressure, pt states at times he is shifting his bottom also. Original Note: Day Shift- Pt reported the prn Oxycodone did not help his pain and would like to have non-narcotic medication. Spoke with ANTONY Lai at 0825 in pt's room re pain management. Toradol 10mg po prn given at 1000, will monitor. Pain reported as 8-9/10 to left inner leg from ankle to knee. Small to moderate sang drainage noted to left inner ankle shadowing onto damian wrap. Previously marked by Night RN and has not exceeded those lines. Did not get BG check prior to pt having breakfast, pt stated giving himself 2 units with breakfast from his insulin pump. Left leg elevated on pillows while on bedrest at this time.
[2018-06-04] MEDS: TRAMADOL 50 MG TABLET PO ×2 (11:15→12:23)
--- NOTE | 2018-06-04 11:17 | PM.PN.1 ---
Subjective Date Patient Seen: 06/04/18 Time Patient Seen: 11:17 Interval history: FOLLOW UP ON L TIBIAL/FIBULAR FRACTURES, WELL HTN, DM, JENNIFER Patient seen at bedside. No overnight events. He went for surgical procedure last night and got screws and nails placed. Patient tolerated the procedure well. Leg was casted. Exam Vital Signs (past 8 hours): - 06/04/18 03:56 06/04/18 07:00 06/04/18 09:50 Temperature 98.0 F 98.3 F Pulse Rate 92 H 87 100 H Respiratory Rate 18 16 Blood Pressure 142/90 H 145/91 H 153/94 H Pulse Oximetry 99 99 06/04/18 09:52 Temperature Pulse Rate 100 H Respiratory Rate Blood Pressure 153/94 H Pulse Oximetry Oxygen Delivery Method Room Air Narrative Exam Narrative: General: No acute distress, AAO x3 HEENT: PERRLA bilaterally, EOMI bilaterally Neck: Supple, no LAD or JVD CV: Regular rate rhythm, no murmurs or gallops Respiratory: Clear to auscultation bilaterally, no wheezing or crackles GI: Positive bowel sounds in all quadrants, nontender, soft, no organomegaly. Insulin pump present Skin: Warm, dry, no lesions or bruising present Neuro: No focal deficits Musculoskeletal: Moves all extremities bilaterally. Left lower extremity is in a cast Objective Labs Result Diagrams: 06/04/18 05:20 06/03/18 Unknown Labs: Laboratory Results - last 24 hr 06/04/18 05:20 WBC 9.5 RBC 3.72 L Hgb 11.2 L Hct 31.9 L MCV 85.7 MCH 30.1 MCHC 35.1 RDW 13.2 Plt Count 152 Assessment & Plan Plan: Assessment/Plan Narrative: 1. L tibial and fibular fractures - S/P nails and screws placing, casting 06/03/18 - PO diet advanced...Will continue IVF at 100cc/hr until Cr normalizes - Continue tylenol and norco for pain control - PT/OT on board 2. DM Type I - With neuropathy and retinopathy - On insulin pump - Monitor daily accuchecks, allow machine to do other glucose control 3. JENNIFER - improving, Cr 1.5->1.3 - continue to hold Losartan in light of JENNIFER but will resume once renal function stabilizes - IVF to continue 4. Essential HTN, controlled - Continue to monitor BP 20 min spent preparing this document Quality VTE Deep Vein Thrombosis/Pulmonary Embolism Present on Admission: No
[2018-06-04] MEDS: ONDANSETRON 4 MG ODT PO (12:18)
[2018-06-04] MEDS: HYDROMORPHONE 1 MG INJ 0.5 MG IV ×2 (12:20→13:36)
[2018-06-04] MEDS: hydrOXYzine pamoate 25 MG CAPSULE PO (12:33)
--- NOTE | 2018-06-04 13:04 | PT.IPTN ---
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 obtained PLOF and home set up from pt and pt's mother.
--- NOTE | 2018-06-04 15:54 | PC.NURSE ---
KRISTAN PT unable to work with patient due to HTN, BP taken on RUE 155/102 then 157/103. Patient should remain non-weight bearing. Oneil bandage has shadowing around posterior-medial ankle. Hammond draining to gravity. Reporting a 5/10 pain, which sounds like is the best pain rating all day. LLE is elevated on a pillow. Patient able to wiggle toes, but has minimal sensation due to his neuropathy.
--- NOTE | 2018-06-04 16:32 | PT.IPTN ---
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 BP checked prior to mobilization and BP 155/102. checked BP 2 more time with ~ 2 min rest in between. BP last readin /103. nurse aware. PT on hold due to increase BP. will f/u tomorrow.
[2018-06-04] MEDS: DOCUSATE 100 MG CAPSULE PO (20:11)
[2018-06-04] MEDS: TRAMADOL 50 MG TABLET 100 MG PO (20:12)
[2018-06-05] VITALS (9 sets, daily range): BP systolic 129–146; BP diastolic 70–94; PULSE 72–93; RESP 16–20; TEMP 36.5–36.8; O2SAT 97–99
[2018-06-05] MEDS: TRAMADOL 50 MG TABLET 100 MG PO ×3 (02:11→14:31)
--- NOTE | 2018-06-05 02:29 | PC.NURSE ---
Addendum entered by Kourtney Case R.N. 06/05/18 06:04: States pain still around 3/10 but declines offer of any pain medication at this time. Ice applied for comfort and leg remains elevated on pillows. Original Note: Patient is alert and oriented. Breath sounds CTA with RA sat of 97%. HRR but still with elevated BP of 151/93. Denies nausea. BT present and abdomen is soft; passing flatus. Indwelling catheter is patent. Left leg is elevated on pillows with ice packs applied. Has soft splint on with damian wrap covering; no new drainage noted. States pain is currently 3/10 with intermittent sharp brief episodes of stronger pain; medicated with Tramadol to keep pain managed. CMS intact except for preexisting neuropathy. SCD to right leg. Fall risk score is high and bed alarm is on. CBG checked per patient request and was 239 so he gave himself 2.5 units via insulin pump.
[2018-06-05 05:49] LABS: Add Manual Diff / Slide Review NO; Basophils Percent Auto 0.6 % (0-2); Eosinophils Percent Auto 1.4 % (2-4); Hematocrit 29.8 % (41-53); Hemoglobin 10.6 g/dL (13.5-17.5); Lymphocytes Percent Auto 21.1 % (25-40); Mean Corpuscular HGB Conc 35.7 % (30-36); Mean Corpuscular Hemoglobin 30.6 PG (26-34); Mean Corpuscular Volume 85.8 fL (80-100); Monocytes Percent Auto 11.7 % (3-14); Neutrophils Absolute Auto 4800 /uL (3000-5900); Neutrophils Percent Auto 65.2 % (50-75); Platelet Count 131 X10^3/uL (150-400); Red Blood Cell Count 3.48 X10^6/uL (4.5-5.9); White Blood Cell Count 7.3 X10^3/uL (4.5-11.0)
[2018-06-05 05:58] LABS: BUN Creatinine Ratio 14.7 (6-22); Blood Urea Nitrogen 22 mg/dL (9-20); Calcium 7.7 mg/dL (8.4-10.2); Carbon Dioxide 26 mmol/L (22-32); Chloride 101 mmol/L (98-107); Estimated Glomerular Filt Rate 51.3 mL/min (>60); Glucose 219 mg/dL (70-100); HEMOLYSIS < 15 (0-50); Potassium 4.3 mmol/L (3.4-5.1); Sodium 134 mmol/L (137-145)
[2018-06-05] MEDS: DOCUSATE 100 MG CAPSULE PO ×2 (08:18→20:58)
[2018-06-05] MEDS: ASPIRIN EC 81 MG TABLET PO (08:19)
[2018-06-05] MEDS: LOSARTAN 50 MG TABLET PO (08:20)
[2018-06-05] MEDS: ACETAMINOPHEN 325 MG TABLET 975 MG PO ×3 (08:22→20:58)
[2018-06-05] MEDS: hydrOXYzine pamoate 25 MG CAPSULE PO ×3 (08:25→20:58)
--- NOTE | 2018-06-05 09:12 | PT.IIE ---
Current Diagnoses Type 2 diabetes mellitus without complications (06/03/18) Unspecified fracture of shaft of unspecified tibia, initial encounter for closed fracture (06/03/18) Unspecified fracture of shaft of unspecified fibula, initial encounter for closed fracture (06/03/18) [facility] (current) use of insulin (06/03/18) Surgery Performed Operation Date: 06/03/18 15:45 Actual Procedures p IM nail tib/fib fx(Left) - Pastor Yuan MD Medical History (Last Reviewed 06/03/18 @ 16:12 by Pastor Yuan MD) Hypertension (Acute) Insulin dependent diabetes mellitus (Acute) Neuropathy (Acute) Retinopathy due to secondary diabetes (Chronic) Physical Therapy Inpatient Evaluation/Re-Eval M1 PT/OT-IP Prior Functional Status Start: 06/03/18 09:18 Freq: NEEDED Status: Active Protocol: Document 06/05/18 09:12 AB (Rec: 06/05/18 13:23 AB [id number]) Medical Review Prior Functional Status Medical History Reviewed Yes Communication able to make needs known Mobility and Gait pt stated that he is independent with all mobilities and ambulation without AD Social History Household Members none Living Arrangements Apartment/Condo Number of Stairs To Enter/Railing? pt will be staying at his parents house: one level house without steps to enter. 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) M2 PT-IP Current Condition Start: 06/03/18 09:18 Freq: NEEDED Status: Active Protocol: Document 06/05/18 09:12 AB (Rec: 06/05/18 13:23 AB [id number]) Physical Therapy Current Condition Current Condition Evaluation Date 06/05/18 Treatment Diagnosis L tib/fib fx s/p IM nailing of L tibia Onset Date 06/03/18 Precautions Brace LLE on soft cast Weight Bearing Status Weight Bearing Status Non-Weight Bearing M3 PT-IP Subjective Start: 06/03/18 09:18 Freq: NEEDED Status: Active Protocol: Document 10/24/18 09:12 AB (Rec: 06/05/18 13:23 AB [id number]) Subjective Physical Therapy Visit Type Type Initial Evaluation Visit Start Time 09:12 Visit Stop Time 10:05 Total Visit Minutes 53 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 Physical Therapy Visit Comments Patient Comments pt agreeable to do PT Therapy Pain Assessment Pain When Pain Assessed At Rest Pain Present Pain Present Pain Reported Location Left Lower Leg Intensity 6 Scale Used Numeric (1 - 10) Pain Management Techniques Apply Cold Re-positioning Timing of Activity with Medications M4 PT-IP Mobility and Gait Start: 06/03/18 09:18 Freq: NEEDED Status: Active Protocol: Document 06/05/18 09:12 AB (Rec: 06/05/18 13:23 AB [id number]) PT-Bed Mobility Assessment Supine to Sit Supine to Sit Minimal Assistance Sit to Supine Sit to Supine Standby Assistance Scooting Scooting to Edge of Bed Standby Assistance Scooting Up and Down in Bed Standby Assistance PT-Transfer Assessment Sit to and From Stand Sit to and from Stand Maximum Assistance 2 Person Assistance Use of Upper Extremities Equipment Transfer Assistive Device Gait Belt Front Wheeled Walker Orthotic/Prosthetic Devices or Brace: Yes Transfers Transfer Destination Chair Transfer Technique Stand Pivot Transfer Ability Level of Assist Maximum Assistance 1 Person Assistance 2 Person Assistance Use of Upper Extremities Comments Mobility Comments BP monitored. pt with c/o slight dizziness in spine prior to tx. BP in uspine 141 /87. pt sat on EOB requiring min A for supine to sit and cues from L side of bed, c/o increase dizziness sitting on EOB. BP: 132/62. pt completed sit to stand with attempts requiring max A x 2 and max cues for techniques and safety to maintain NWB on LLE. pt with c/o increase dizziness; BP: 89/59 NV 93. instructed pt to sit back down and assisted in supine. pt rested. nurse aware of BP. BP in supine: 134/70. pt agreeable to get up again. pt rested in supine for ~ 5 min. BP checked: 127/76 NV 91. pt completed sit to supine SBA from R side of bed. pt sat on EOB for ~ 2 min, BP 121/76. agreed to stand and transfer to chair. BP completed sit to stand max A x 2 and completed pivot transfer max A x 1-2 with initial mod assist on LLE to maintain NWB and was able to hold LLE up during pivoting afterwards. BP sitting on chair after transfers: 117/72. set pt on chair. call light and table placed within reach. Gait Assessment Comments Gait Comments unable at this time PT-Balance Assessment Sitting Balance and Reactions Static Sitting Balance Ability Good Dynamic Sitting Balance Ability Good Standing Balance and Reactions Static Standing Balance Ability Fair Dynamic Standing Balance Ability Poor Device Used FWW M5 PT-IP Objective Assessments Start: 06/03/18 09:18 Freq: NEEDED Status: Active Protocol: Document 06/05/18 09:12 AB (Rec: 06/05/18 13:23 AB [id number]) Orientation Orientation/Cognition Level of Alertness Alert Orientation Name Age Birthday Month Date Year Day of Week Place Situation Gross Range of Motion Lower Extremity ROM Assessment Left Impaired Strength Lower Extremity Strength Assessment Bilaterally Impaired Comments Strength Comments bilateral LE weakness L>R LLE: 3-/5 RLE 4-/5 Sensation Assessment Sensation Gross Sensation Right LE Impaired Left LE Impaired Light Touch Impaired Sensation Description Numbness Comments Sensation Comments pt has neuropathy on B feet Muscle Tone Muscle Tone WNL Yes M6 PT-IP Treatment Start: 06/03/18 09:18 Freq: NEEDED Status: Active Protocol: Document 06/05/18 09:12 AB (Rec: 06/05/18 13:23 AB [id number]) Physical Therapy Treatment Exercises Exercises Ankle Pumps Quad Sets Heel Slides Education Education Provided Precautions Weight Bearing Status Safety M7 PT-IP Assessment and Plan Start: 06/03/18 09:18 Freq: NEEDED Status: Active Protocol: Document 06/05/18 09:12 AB (Rec: 06/05/18 13:23 AB [id number]) PT Summary Assessment and Plan Potential Rehabilitation Potential Fair Status of Condition at Evaluation Evolving Summary Impairments Pain ROM Strength Balance Coordination Sensation Bed Mobility Transfers Gait Activity Tolerance Assessment Summary pt requiring 2 person assist at this time and unable to tolerate much activity. pt is NWB on LLE and limiting mobility. d/c plan depending on progress but at this time, pt will require SNF rehab. Goals Bed Mobility Goal Standby Assistance Transfer Goal Standby Assistance Crutches Front Wheeled Walker Gait Goal Independent Crutches Front Wheel Walker Gait Distance 100 Days to Meet Goals 5 Frequency of Treatment Frequency Of Treatment Twice a Day Treatment Plan Physical Therapy Treatment Plan Bed Mobility Training Transfer Training Gait Training Therapeutic Exercise Balance Retraining Post Op Education Discharge Planning Hot or Cold Pack Neuromuscular Re-ed Coordination Retraining Manual Therapy Other Recommendations and Next Treatment sit<> stand; ambulation Focus Recommendations To Nursing Amount of Assist Needed 2 Person Assist Mechanical Lift Discharge Recommendations PT Discharge Recommendations SNF Rehab Equipment Needed for Home Before FWW Discharge
[2018-06-05] MEDS: SODIUM CHLORIDE 0.9% FLUSH 10 ML IV ×2 (13:20→20:45)
--- NOTE | 2018-06-05 13:37 | P.PN_ITS ---
Subjective Date Patient Seen: 06/05/18 Time Patient Seen: 13:24 Interval history: Patient is POD # 2 status post IM nailing left tibia with Dr. Yuan. Patient is sitting upright in chair in no signs of distress. Mother is sitting bedside. Patient saw PT today. Patient plan is to go stay with his mother and stepfather on discharge, however PT recommended patient be discharged to SNF. Patient reports that his pain is manageable at this time with 100mg of tramadol. He reports since taking 81mg of aspirin post op he has been experiencing dizziness, headaches and hearing a high pitch sound in his ears. He reports having a history of side effects from taking baby aspirin. He denies any fever, chills, SOB, nausea, vomiting or chest pain. Exam Vital Signs (past 8 hours): - 06/05/18 08:00 06/05/18 08:20 06/05/18 11:40 Temperature 98.1 F Pulse Rate 91 H 89 90 Respiratory Rate 16 16 Blood Pressure 141/87 H 146/94 H 137/80 Pulse Oximetry 97 97 Oxygen Delivery Method Room Air Oxygen Flow Rate 0 Narrative Exam Narrative: Patient is AOx3. Patient is in no acute distress. Bilateral Radial and R dorsalis pedis pulses 2+. Patient actively able to wiggle L toes. Muscle strength in dorsiflexion and plantarflexion adequate in R foot. Absent sensation to light touch in L toes and slight sensation in R foot; patient has diabetic neuropathy. Long posterior leg splint on L extremity with SHERI wrap intact and mild drainage noted on medial ankle. R calf is slightly tender to palpation, soft and compressible. Hammond catheter intact. Objective Labs Result Diagrams: 06/05/18 05:30 06/05/18 05:30 Labs: Laboratory Results - last 24 hr 06/05/18 06/05/18 05:30 05:30 WBC 7.3 RBC 3.48 L Hgb 10.6 L Hct 29.8 L MCV 85.8 MCH 30.6 MCHC 35.7 RDW 13.0 Plt Count 131 L Neut % (Auto) 65.2 Lymph % (Auto) 21.1 L [place] % (Auto) 11.7 Eos % (Auto) 1.4 L Baso % (Auto) 0.6 Neut # (Auto) 4800 Sodium 134 L Potassium 4.3 Chloride 101 Carbon Dioxide 26 BUN 22 H Creatinine 1.50 H Estimated GFR 51.3 L BUN/Creatinine Ratio 14.7 Glucose 219 H Calcium 7.7 L Assessment & Plan Post-op Postoperative Procedures Operation Date: 06/03/18 15:45 Actual Procedures Side Surgeon p IM nail tib/fib fx Left Pastor Yuan MD Postoperative day: 2 Postoperative status: doing well Postoperative plan: routine post-op care Postoperative plan narrative: D/C [place]. Case management was consulted regarding SNF. He is to be nonweightbearing to his left leg for 6-8 weeks postop. He is to return to office 2 weeks postop for staple removal and x-rays and placed in a walker boot. Time Spent With Patient less than 15 minutes Quality VTE Deep Vein Thrombosis/Pulmonary Embolism Present on Admission: No
--- NOTE | 2018-06-05 15:35 | PT.IPTN ---
Current Diagnoses Type 2 diabetes mellitus without complications (06/03/18) Unspecified fracture of shaft of unspecified tibia, initial encounter for closed fracture (06/03/18) Unspecified fracture of shaft of unspecified fibula, initial encounter for closed fracture (06/03/18) [facility] (current) use of insulin (06/03/18) Surgery Performed Operation Date: 06/03/18 15:45 Actual Procedures p IM nail tib/fib fx(Left) - Pastor Yuan MD Physical Therapy Treatment Note M2 PT-IP Current Condition Start: 06/03/18 09:18 Freq: NEEDED Status: Active Protocol: Document 06/05/18 09:12 AB (Rec: 06/05/18 13:23 AB [id number]) Physical Therapy Current Condition Current Condition Evaluation Date 06/05/18 Treatment Diagnosis L tib/fib fx s/p IM nailing of L tibia Onset Date 06/03/18 Precautions Brace LLE on soft cast Weight Bearing Status Weight Bearing Status Non-Weight Bearing M3 PT-IP Subjective Start: 06/03/18 09:18 Freq: NEEDED Status: Active Protocol: Document 06/05/18 15:35 AB (Rec: 06/05/18 17:23 AB [email or web address]) Subjective Physical Therapy Visit Type Type Treatment Note Visit Start Time 15:35 Visit Stop Time 16:20 Total Visit Minutes 45 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 Physical Therapy Visit Comments Patient Comments pt agreeable to do PT Therapy Pain Assessment Pain When Pain Assessed At Rest Pain Present Pain Present Pain Reported Location Left Lower Leg Intensity 5 Scale Used Numeric (1 - 10) Pain Management Techniques Apply Cold Re-positioning Timing of Activity with Medications M4 PT-IP Mobility and Gait Start: 06/03/18 09:18 Freq: NEEDED Status: Active Protocol: Document 06/05/18 15:35 AB (Rec: 06/05/18 17:23 AB [id number]) PT-Bed Mobility Assessment Sit to Supine Sit to Supine Standby Assistance Scooting Scooting to Edge of Bed Standby Assistance Scooting Up and Down in Bed Standby Assistance PT-Transfer Assessment Sit to and From Stand Sit to and from Stand Maximum Assistance 2 Person Assistance Use of Upper Extremities Equipment Transfer Assistive Device Gait Belt Front Wheeled Walker Orthotic/Prosthetic Devices or Brace: Yes Transfers Transfer Technique pt ambulated to the bed using fWW Comments Mobility Comments Pt ambulated ~ 15 ft using FWW to the bed requiring mod A and cues. pt was able to maintain NWB on LLE. M5 PT-IP Objective Assessments Start: 06/03/18 09:18 Freq: NEEDED Status: Active Protocol: Document 06/05/18 09:12 AB (Rec: 06/05/18 13:23 AB [id number]) Orientation Orientation/Cognition Level of Alertness Alert Orientation Name Age Birthday Month Date Year Day of Week Place Situation Gross Range of Motion Lower Extremity ROM Assessment Left Impaired Strength Lower Extremity Strength Assessment Bilaterally Impaired Comments Strength Comments bilateral LE weakness L>R LLE: 3-/5 RLE 4-/5 Sensation Assessment Sensation Gross Sensation Right LE Impaired Left LE Impaired Light Touch Impaired Sensation Description Numbness Comments Sensation Comments pt has neuropathy on B feet Muscle Tone Muscle Tone WNL Yes M6 PT-IP Treatment Start: 06/03/18 09:18 Freq: NEEDED Status: Active Protocol: Document 06/05/18 15:35 AB (Rec: 06/05/18 17:23 AB [id number]) Physical Therapy Treatment Education Education Provided Precautions Weight Bearing Status Safety Other Treatments Other Treatment Performed educated on equipement needs. informed pt's mother as well to acquire a w/c that is the appriate size for pt. M7 PT-IP Assessment and Plan Start: 06/03/18 09:18 Freq: NEEDED Status: Active Protocol: Document 06/05/18 15:35 AB (Rec: 06/05/18 17:23 AB [email or web address]) PT Summary Assessment and Plan Potential Rehabilitation Potential Good Summary Impairments Pain ROM Strength Balance Sensation Cognition Bed Mobility Transfers Gait Activity Tolerance Progress Towards Goals Slow Progress due to Pain Slow Progress due to Medical Issues Assessment Summary pt progressing slowly with improvement with ambulation using FWW. pt's mother will bring current w/c to see if it is appropriate for pt. will also bring in knee scooter and PT to assess safe use if appropriate. d/c plan depending on progress. Goals Bed Mobility Goal Standby Assistance Transfer Goal Standby Assistance Crutches Front Wheeled Walker Gait Goal Independent Crutches Front Wheel Walker Gait Distance 100 Days to Meet Goals 5 Frequency of Treatment Frequency Of Treatment Twice a Day Treatment Plan Physical Therapy Treatment Plan Bed Mobility Training Transfer Training Gait Training Therapeutic Exercise Balance Retraining Post Op Education Discharge Planning Hot or Cold Pack Neuromuscular Re-ed Coordination Retraining Manual Therapy Other Recommendations and Next Treatment ambulation using crutches, Focus knee scooter Recommendations To Nursing Amount of Assist Needed 2 Person Assist Discharge Recommendations PT Discharge Recommendations SNF Rehab Equipment Needed for Home Before FWW Discharge
--- NOTE | 2018-06-05 15:58 | CM.DPC ---
DCP SNF vs Home Per Ortho PA, met with pt earlier today and pt's plan was still home with his parents to their one story house after working with PT but PT notes indicated they were recommending SNF at d/c and PA wanting to update SW for d/c planning. SW attempted to meet bedside with pt close to the end of shift and PT working with pt a second time and SW introduced self to pt and then to his mother who was waiting outside the room. SW explained role and pt's mother confirms they have a very easy house to navigate and states her has had 2 back surgeries and their house is set up well for DME and walk in shower and equipment. SW updated possible recommendation of SNF rehab prior to home pending pt progress with PT and mother states she will participate in caregiver training and is open to suggestions for d/c planning needs. Plan: SW to follow closely in the morning after further PT to determine if pt is safe to d/c home with parents vs possible SNF rehab. Pt's parents very supportive and recent experience with back surgery themselves and seem quite capable pending pt's ability to ambulate. DONA Candelario
--- NOTE | 2018-06-05 17:30 | PM.PN.1 ---
Subjective Date Patient Seen: 06/05/18 Interval history: No specific complaints. NO BM in a few days but taking colace daily Exam Vital Signs (past 8 hours): - 06/05/18 11:40 06/05/18 15:34 06/05/18 17:07 Temperature 98.2 F Pulse Rate 90 89 87 Respiratory Rate 16 20 16 Blood Pressure 137/80 146/78 H 146/83 H Pulse Oximetry 97 98 97 Oxygen Delivery Method Room Air Oxygen Flow Rate 0 Narrative Exam Narrative: Pleasant male in NAD Lungs: clear to auscultation CV:RRR nl Sl S2 Abd: soft/ non tender/ non distended Leg: with brace Objective Labs Result Diagrams: 06/05/18 05:30 06/05/18 05:30 Labs: Laboratory Results - last 24 hr 06/05/18 06/05/18 05:30 05:30 WBC 7.3 RBC 3.48 L Hgb 10.6 L Hct 29.8 L MCV 85.8 MCH 30.6 MCHC 35.7 RDW 13.0 Plt Count 131 L Neut % (Auto) 65.2 Lymph % (Auto) 21.1 L [place] % (Auto) 11.7 Eos % (Auto) 1.4 L Baso % (Auto) 0.6 Neut # (Auto) 4800 Sodium 134 L Potassium 4.3 Chloride 101 Carbon Dioxide 26 BUN 22 H Creatinine 1.50 H Estimated GFR 51.3 L BUN/Creatinine Ratio 14.7 Glucose 219 H Calcium 7.7 L Assessment & Plan (1) Fracture of tibia and fibula: Problem details: Home when able to manage per PT/OT Qualifiers: Encounter type: initial encounter Fracture healing: Fracture type: closed Laterality: Open fracture type: Current visit: Yes Status: Acute (2) Insulin dependent diabetes mellitus: Problem details: Patient on insulin pump, will continue Current visit: Yes Status: Acute (3) Hypertension: Problem details: continue home medications Current visit: Yes Status: Acute (4) Chronic renal failure, stage 3 (moderate): Problem details: will follow Current visit: Yes Status: Acute Quality VTE Deep Vein Thrombosis/Pulmonary Embolism Present on Admission: No
[2018-06-05] MEDS: TRAMADOL 50 MG TABLET PO (21:14)
--- NOTE | 2018-06-05 21:53 | PC.NURSE ---
@2029 pt unable to void while sitting at side of bed; Bladder scan 600 mL; MD notified; pt transferred with 2-asst, gait belt, [place] [facility] [place]; pt reports moderate pain to LLE, PO Tramadol; PPP to left foot, capillary refill <2, chronic diabetic neuropathy to bilateral feet
[2018-06-06 04:04] VITALS: BP 163/86; PULSE 93; RESP 18; TEMP 36.7; O2SAT 99
--- NOTE | 2018-06-06 04:13 | PC.NURSE ---
Addendum entered by Kourtney Case R.N. 06/06/18 06:01: Complains of 5/10 left leg pain/spasms so medicated with Tramadol 100mg (requests full 100mg even though pain only 5/10) + Vistaril. Original Note: 0300 CBG was 289 and patient self administered 4.5 units of insulin via insulin pump.
--- NOTE | 2018-06-06 04:37 | PC.NURSE ---
Pt is A and O x 4, VSS. Pt stated earlier in shift pain is 4/10 and tolerable. Pt is able to sleep. Pt denies nausea. Pt agreed to take bowel meds after breakfast as his last BM 06/02/18. Pt has not voided this shift. HR reg and LS clear. + pedal pulse and CMS on L LE. Pt 0300 289 and he self administrated 4.5 units insulin.
[2018-06-06] MEDS: TRAMADOL 50 MG TABLET 100 MG PO ×2 (05:58→10:52)
[2018-06-06] MEDS: hydrOXYzine pamoate 25 MG CAPSULE PO (05:58)
[2018-06-06 07:34] VITALS: BP 137/86; PULSE 85; RESP 18; TEMP 36.8; O2SAT 98
[2018-06-06] MEDS: ACETAMINOPHEN 325 MG TABLET 975 MG PO ×2 (09:13→15:12)
[2018-06-06] MEDS: DOCUSATE 100 MG CAPSULE PO (09:14)
[2018-06-06] MEDS: KETOROLAC 10 MG TABLET PO (09:15)
[2018-06-06] MEDS: LOSARTAN 50 MG TABLET PO (09:15)
[2018-06-06] MEDS: SODIUM CHLORIDE 0.9% FLUSH 10 ML IV (09:16)
[2018-06-06] MEDS: TRAMADOL 50 MG TABLET PO (10:13)
[2018-06-06 10:33] VITALS: PULSE 94; RESP 16; O2SAT 98
--- NOTE | 2018-06-06 10:41 | P.PN_ITS ---
Subjective Date Patient Seen: 06/06/18 Time Patient Seen: 07:40 Interval history: Pt is PD 3. S/P IM nailing for left tib fib fracture by Dr. Yuan. States he is having a little more discomfort with left leg today but pain controlled with tramdol 50mg. Stopped taking ASA 81mg and symptoms of REDD and high pitched sounds in ears has stopped. History of insulin dependent diabetes and diabetic neuropathy. Plan is for patient to go home with his mother tomorrow. Non weight bearing on left leg with crutches or walker for 6 weeks. Exam Vital Signs (past 8 hours): - 06/06/18 04:04 06/06/18 07:34 Temperature 98.1 F 98.2 F Pulse Rate 93 H 85 Respiratory Rate 18 18 Blood Pressure 163/86 H 137/86 Pulse Oximetry 99 98 Oxygen Delivery Method Room Air Oxygen Flow Rate 0 Narrative Exam Narrative: Pt in bed. Appears comfortable. A&O x3. Left leg with posterior splint. No new drainage on medial ankle on SHERI wrap. Able to move all toes. 5/5 EHL plantarflexion but 3/5 dorsiflexion. Numbness in all toes. Numbness in toes of right foot. 2+ distal pulses. Objective Labs Result Diagrams: 06/05/18 05:30 06/05/18 05:30 Assessment & Plan Post-op Postoperative Procedures Operation Date: 06/03/18 15:45 Actual Procedures Side Surgeon p IM nail tib/fib fx Left Pastor Yuan MD PD 2. Continue pain management with tramadol prn. Continue PT. He is to be nonweightbearing to his left leg for 6-8 weeks postop. He is to return to office 2 weeks postop for staple removal and x-rays and placed in a walker boot. Plan for D/C home tomorrow. Medical issues being managed by [facility]. Quality VTE Deep Vein Thrombosis/Pulmonary Embolism Present on Admission: No
--- NOTE | 2018-06-06 10:50 | PT.IPTN ---
Current Diagnoses Type 2 diabetes mellitus without complications (06/03/18) Essential (primary) hypertension (06/03/18) Chronic kidney disease, stage 3 (moderate) (06/03/18) Unspecified fracture of shaft of unspecified tibia, initial encounter for closed fracture (06/03/18) Unspecified fracture of shaft of unspecified fibula, initial encounter for closed fracture (06/03/18) terminal carman (current) use of insulin (06/03/18) Surgery Performed Operation Date: 06/03/18 15:45 Actual Procedures p IM nail tib/fib fx(Left) - Pastor Yuan MD Physical Therapy Treatment Note M2 PT-IP Current Condition Start: 06/03/18 09:18 Freq: NEEDED Status: Active Protocol: Document 06/05/18 09:12 AB (Rec: 06/05/18 13:23 AB [id number]) Physical Therapy Current Condition Current Condition Evaluation Date 06/05/18 Treatment Diagnosis L tib/fib fx s/p IM nailing of L tibia Onset Date 06/03/18 Precautions Brace LLE on soft cast Weight Bearing Status Weight Bearing Status Non-Weight Bearing M3 PT-IP Subjective Start: 06/03/18 09:18 Freq: NEEDED Status: Active Protocol: Document 06/06/18 10:55 GGD (Rec: 06/06/18 12:06 GGD [id number]) Subjective Physical Therapy Visit Type Type Treatment Note Visit Start Time 10:20 Visit Stop Time 10:55 Total Visit Minutes 25 Number of [employer]IM [employer] SUPERVISOR Visits 1 Physical Therapy Visit Comments Patient Comments Pt up to BSC with NSG. Therapy Pain Assessment Pain When Pain Assessed At Rest Pain Present Pain Present Pain Reported Location Left Lower Leg Intensity 4 Scale Used Numeric (1 - 10) Pain Management Techniques Apply Cold Re-positioning Timing of Activity with Medications M4 PT-IP Mobility and Gait Start: 06/03/18 09:18 Freq: NEEDED Status: Active Protocol: Document 06/06/18 10:55 GGD (Rec: 06/06/18 12:06 GGD [id number]) PT-Bed Mobility Assessment Supine to Sit Supine to Sit Independent Sit to Supine Sit to Supine Independent Scooting Scooting to Edge of Bed Independent Scooting Up and Down in Bed Independent PT-Transfer Assessment Sit to and From Stand Sit to and from Stand Contact Guard Assistance Use of Upper Extremities Equipment Transfer Assistive Device Gait Belt Front Wheeled Walker Orthotic/Prosthetic Devices or Brace: Yes Transfers Transfer Destination Bed Gait Assessment Gait Gait Assistance Required: Contact Guard Assist Distance (Feet) 10 Able to Maintain Weight Bearing Status Yes During Gait Assistive Devices Assistive Device Front Wheeled Walker Factors Limiting Gait Function Factors Limiting Gait Function Decreased Activity Tolerance Pain M5 PT-IP Objective Assessments Start: 06/03/18 09:18 Freq: NEEDED Status: Active Protocol: Document 06/05/18 09:12 AB (Rec: 06/05/18 13:23 AB [id number]) Orientation Orientation/Cognition Level of Alertness Alert Orientation Name Age Birthday Month Date Year Day of Week Place Situation Gross Range of Motion Lower Extremity ROM Assessment Left Impaired Strength Lower Extremity Strength Assessment Bilaterally Impaired Comments Strength Comments bilateral LE weakness L>R LLE: 3-/5 RLE 4-/5 Sensation Assessment Sensation Gross Sensation Right LE Impaired Left LE Impaired Light Touch Impaired Sensation Description Numbness Comments Sensation Comments pt has neuropathy on B feet Muscle Tone Muscle Tone WNL Yes M6 PT-IP Treatment Start: 06/03/18 09:18 Freq: NEEDED Status: Active Protocol: Document 06/06/18 10:55 GGD (Rec: 06/06/18 12:06 GGD [id number]) Physical Therapy Treatment Exercises Exercises Heel Slides Seated Knee Flexion/Extension Education Education Provided Weight Bearing Status Safety Other Treatments Other Treatment Performed PT educated on knee scooter. Pt doesn't have knee flexion to 90 degrees to use the knee scooter. M7 PT-IP Assessment and Plan Start: 06/03/18 09:18 Freq: NEEDED Status: Active Protocol: Document 06/06/18 10:55 GGD (Rec: 06/06/18 12:06 GGD [id number]) PT Summary Assessment and Plan Summary Assessment Summary Pt improving with mobility. He is stable with gait with FWW. He knee flexion is limited and unable to use knee scooter . Frequency of Treatment Frequency Of Treatment Twice a Day Treatment Plan Other Recommendations and Next Treatment ambulation using FWW, knee Focus scooter Recommendations To Nursing Amount of Assist Needed 1 Person Assist Discharge Recommendations PT Discharge Recommendations Home with Assistance
[2018-06-06] MEDS: LACTULOSE 20 GM/30 ML SOLUTION 10 GM PO (11:35)
[2018-06-06] MEDS: SENNOSIDES 8.6 MG TABLET 17.2 MG PO (11:36)
[2018-06-06] MEDS: BISACODYL 10 MG SUPP PR (11:36)
[2018-06-06 12:05] VITALS: BP 145/90; PULSE 87; RESP 18; TEMP 36.7; O2SAT 96
--- NOTE | 2018-06-06 12:27 | PM.DS.1 ---
History of Present Illness Date Patient Seen: 06/06/18 Chief complaint: left leg pain Narrative: Patient presented to the ED on 06/02/2018 with complaints of left lower extremity pain Earlier in the day patient was walking downhill, slipped on wet grass and fell onto his left lower extremity. He was unable to get up on his own. Reports pain with movement of the LLE. Associated symptoms include: diminished sensation and diminished ROM of the affected extremity. Denies loss of consciousness or injury to the head. ED w/u revealed a fracture and misalignment of the distal tibia and fibula, consequently he underwent a successful reduction of the orthopedic fraction while in the ED. No prior known fractures or recurrent falls. Pain was treated w/ Fentanyl, from which he experienced GI side effects. Patient denies headache, dizziness, lightheadedness, and abdominal pain. No known underlying history of cardiac events, cerebrovascular events, or thrombosis. He is known to have a degree of renal insufficiency, CKD Stage III w/ sCr 1.5. Reports a fair control of his diabetes w/ HgbA1C in the 7% range (on an insulin pump). Prior to the event patient reports adequate exercise tolerance / opacity, able to perform at least 4 METs of activities of daily living without difficulty. Discharge Providers Date of admission: 06/03/18 01:36 Consults: 06/03/18 20:23 Consult to Discharge Planning Routine Comment: Consult to Physical Therapy Evaluate & Treat Comment: Physician Instructions: Evaluate and Treat Consult to Respiratory Therapy Evaluate & Treat Comment: Physician Instructions: Evaluate and treat Discharge provider: Mery Alford MD Discharge Date: 06/06/18 Summary Discharge Diagnosis: Left Tib/Fib fracture Type 1 Diabetes Mellitus Hypertension Retinopathy Hospital Course: Patient was admitted to the hospital hospital for a Tib/Fib fracture. He was taken to the OR for IM nailing of the Tibia. The patient tolerated the procedure without difficulty. His blood sugar was well controlled on his Insulin pump. He had some difficulty with BM's and pain control. We were ultimately able to manage both problems. Patient was able to ambulate with PT, caregiver training was accomplished. Patient was deemed appropriate and discharged home. Status at Discharge Functional status at discharge: uses cane/walker Overall status at discharge: patient is back to baseline Time Spent with Patient Less than 30 minutes Exam Vital Signs (past 8 hours): - 06/06/18 07:34 06/06/18 10:33 06/06/18 12:05 Temperature 98.2 F 98.0 F Pulse Rate 85 94 H 87 Respiratory Rate 18 16 18 Blood Pressure 137/86 145/90 H Pulse Oximetry 98 98 96 Fraction of Inspired Oxygen 21 Oxygen Delivery Method Room Air Oxygen Flow Rate 0 Narrative Exam Narrative: Pleasant gentleman in no acute distress Lungs: Clear to ausculatation CV: RRR nl Sl S2 ABd: soft/non tender Ext: left leg in soft brace Objective Labs Result Diagrams: 06/05/18 05:30 06/05/18 05:30 Discharge Plan Discharge Plan Discharge Problem: Fracture of tibia and fibula, Insulin dependent diabetes mellitus Patient Disposition: Home Discharge comment: Patient to follow up with Orthopedics in 1-2 weeks Patient should follow up with his PCP at [facility] within one week Discharge Med Rec/Prescriptions Prescriptions: No Action losartan tablet 50 mg PO DAILY RF: 0 Provider Discharge Instructions Diet: Carb-consistent/Diabetic Activity: as tolerated per instructions from PT Discharge Data Attending Provider: Delia Caspre Admit Date/Time: 06/03/18 01:36 Quality VTE Deep Vein Thrombosis/Pulmonary Embolism Present on Admission: No
[2018-06-06] MEDS: FLEETS ENEMA 1 EACH PR (13:26)
--- NOTE | 2018-06-06 13:48 | CM.DPC ---
DC Note: Pt has been DC home today. PT has cleared pt for return home w/ parents w/outpt f/u. JW
--- NOTE | 2018-06-06 15:34 | PC.NURSE ---
Late Entry for 06/05/2018 At 21:14 patient received 100 mg tramadol as ordered prn. Because there are two orders for the same med, one 50 mg and one 100 mg, scanner highlighted the 50 mg order w/o prompt to scan another. Witnessed by Rama Lozano RN.
== END 2018-06-06 16:15 | disposition home or self-care (01) | DRG 494 ==
LOC: ED 06-03 00:51 → AC 06-03 02:58
PROVIDERS: Internal Medicine; Orthopaedic Surgery; Admitting Provider Nurse Practitioner Gerontology; Emergency Provider Emergency Medicine; Visit Provider Nurse Practitioner Gerontology
PROC: 0QSH06Z Reposition Left Tibia with Intramedullary Internal Fixation Device, Open Approach (ICD-10-PCS; CPT 27759; principal; 2018-06-03 15:45)
DX: S89.102A Unspecified physeal fracture of lower end of left tibia, initial encounter for closed fracture (principal); S82.452A Displaced comminuted fracture of shaft of left fibula, initial encounter for closed fracture; E10.40 Type 1 diabetes mellitus with diabetic neuropathy, unspecified; E10.319 Type 1 diabetes mellitus with unspecified diabetic retinopathy without macular edema; I12.9 Hypertensive chronic kidney disease with stage 1 through stage 4 chronic kidney disease, or unspecified chronic kidney disease; E10.22 Type 1 diabetes mellitus with diabetic chronic kidney disease; N18.3 Chronic kidney disease, stage 3 (moderate); W17.81XA Fall down embankment (hill), initial encounter; R06.89 Other abnormalities of breathing
CPT/HCPCS: 27752; 29505; 36415; 73590; 80048; 82962; 85025; 85027; 85610; 85730; 94760; 94770; 97162; 97530; 99152; 99283; 99285; J0690; J1170; J2250; J2405; J2704; J2765; J3010

== ENCOUNTER → 2018-06-26 08:39 | Outpatient (CLI) | payer OTHER, SELFPAY ==
[2018-06-03 02:03] VITALS: BMI 27.1
[2018-06-26 09:45] LABS: Hemoglobin A1C% w Est Avg Glu 7.6 % (4.0-6.0)
[2018-06-26 10:11] LABS: Alanine Aminotransferase 38 IU/L (21-72); Albumin 3.6 g/dL (3.5-5.0); Albumin Globulin Ratio 1.3 (1.0-2.8); Alkaline Phosphatase 231 U/L (38-126); Aspartate Aminotransferase 26 IU/L (17-59); Bilirubin Total 0.6 mg/dL (0.2-1.3); Bilirubin Unconjugated 0.4 mg/dL (0.0-1.1); Globulin 2.8 g/dL (1.7-4.1); HEMOLYSIS < 15 (0-50); Total Protein 6.4 g/dL (6.3-8.2)
== END ==
PROVIDERS: Visit Provider Podiatrist
DX: B35.1 Tinea unguium (principal)
CPT/HCPCS: 36415; 80076; 83036

== ENCOUNTER → 2018-08-23 09:26 | Outpatient (CLI) | payer OTHER, SELFPAY ==
[2018-06-03 02:03] VITALS: BMI 27.1
[2018-08-23 10:08] LABS: Alanine Aminotransferase 50 IU/L (21-72); Albumin 3.7 g/dL (3.5-5.0); Albumin Globulin Ratio 1.2 (1.0-2.8); Alkaline Phosphatase 120 U/L (38-126); Aspartate Aminotransferase 36 IU/L (17-59); BUN Creatinine Ratio 23.3 (6-22); Bilirubin Total 0.5 mg/dL (0.2-1.3); Bilirubin Unconjugated 0.3 mg/dL (0.0-1.1); Blood Urea Nitrogen 35 mg/dL (9-20); Calcium 8.5 mg/dL (8.4-10.2); Carbon Dioxide 25 mmol/L (22-32); Chloride 105 mmol/L (98-107); Estimated Glomerular Filt Rate 51.3 mL/min (>60); Glucose 217 mg/dL (70-100); HEMOLYSIS 16 (0-50); Potassium 4.8 mmol/L (3.4-5.1); Sodium 138 mmol/L (137-145); Total Protein 6.7 g/dL (6.3-8.2)
== END ==
PROVIDERS: Visit Provider Podiatrist
DX: B35.1 Tinea unguium (principal); B35.3 Tinea pedis
CPT/HCPCS: 36415; 80053; 80076

== ENCOUNTER 2019-04-21 15:37 | Emergency (ER) | payer OTHER, SELFPAY ==
[2019-04-21] VITALS (7 sets, daily range): BP systolic 143–158; BP diastolic 81–91; PULSE 84–94; RESP 11–19; O2SAT 97–100; BMI 27.1
--- NOTE | 2019-04-21 15:45 | PC.NURSE ---
Pt states he has had less urine output than he normally has. He has recently established care with a skip pitman for known CKD, he is unsure what his normal BUN/Creatinine is.
--- NOTE | 2019-04-21 15:58 | ED.NAVMDI ---
HPI - Nausea/Vomiting/Diarrhea General Chief complaint: Nausea/Vomiting/Diarrhea Stated complaint: KIDNEY ISSUES BLOOD PRESSURE IS UP NOT PEEING MUCH Time Seen by Provider: 04/21/19 15:55 Source: patient Mode of arrival: ambulatory Limitations: no limitations History of Present Illness HPI Narrative: Patient is a 44-year-old male who has a history of type 1 diabetes presenting with nausea and vomiting. He says he is on an insulin pump. 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 and 7:00 a.m.. He drank a not water but has not really urinated. He has absolutely no abdominal pain no diarrhea. He denies any dizziness or lightheadedness. He feels like his acid reflux might be kicking up and little bit of chest discomfort. MD complaint: nausea and vomiting Related Data Home Medications Medication Instructions Recorded Confirmed losartan 50 mg PO DAILY #0 06/03/18 04/21/19 albuterol sulfate [Ventolin HFA] 2 puff INHALATION Q6H PRN 04/21/19 04/21/19 insulin lispro [Humalog U-100 2 unit CONTINUOUS SUBCUTANEOUS 04/21/19 04/21/19 Insulin] INFUSION DAILY Previous Rx's Medication Instructions Recorded omeprazole 20 mg PO DAILY PRN #30 cap 04/21/19 ondansetron 4 mg PO Q8H PRN #10 tab 04/21/19 Allergies Allergy/AdvReac Type Severity Reaction Status Date / Time ketamine Allergy Unknown Verified 04/21/19 16:53 fentanyl AdvReac Intermediate Nausea Verified 06/03/18 15:30 Review of Systems Review of Systems Narrative: GENERAL: Denies chills, fatigue, malaise, fever, sweats, travel HEENT: Denies sinus pain, ear pain, sore throat, difficulty swallowing, neck pain RESPIRATORY: Denies dyspnea, cough, wheezing, hemoptysis, sputum. CARDIOVASCULAR: Denies chest pain, palpitations, orthopnea, edema GASTROINTESTINAL: See HPI : Denies dysuria, frequency, incontinence, hematuria, urinary retention, flank pain. MUSCULOSKELETAL: Denies weakness, joint pain, or bony pain SKIN: No rash, no erythema, no pruritus NEUROLOGIC: Denies weakness, dizziness, headache, numbness, change in speech, confusion PSYCHIATRIC: No concerning psychosocial issues. 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 HEENT: Head atraumatic,EOMI, pupils reactive, face symmetric] CARDIOVASCULAR: Regular rate and rhythm without murmurs, rubs or gallops. RESPIRATORY: Breath sounds equal bilaterally, no wheezes rales or rhonchi. ABDOMEN: Soft, nontender. Normoactive bowel sounds all 4 quadrants. No guarding or rebound. EXTREMITIES: Normal range of motion, no clubbing or edema. Neurovascularly intact NEUROLOGICAL: Alert and oriented x4.Normal gait and speech. Cranial nerves II through XII grossly intact. SKIN: Warm, dry, no laceration, no petechiae, no rashes or lesions. Course Orders Ordered: Discontinued Medications Al Hydrox/Mg Hydrox/Simethicone 20 ml/ Lidocaine HCl 15 ml 0 ml PO NOW ONE Stop: 04/21/19 17:06 Last Admin: 04/21/19 17:19 Dose: 35 ml Documented by: REGI Sodium Chloride (Normal Saline 0.9%) 1,000 mls @ 1,000 mls/hr IV BOLUS ONE Stop: 04/21/19 17:02 Last Infusion: 04/21/19 17:23 Dose: 0 mls/hr Documented by: Admin: 04/21/19 16:20 Dose: 1,000 mls/hr Documented by: VESNA Sodium Chloride (Normal Saline 0.9%) 1,000 mls @ 1,000 mls/hr IV BOLUS ONE Stop: 04/21/19 17:43 Last Infusion: 04/21/19 18:22 Dose: 0 mls/hr Documented by: Admin: 04/21/19 17:22 Dose: 1,000 mls/hr Documented by: REGI Sodium Chloride (Normal Saline 0.9%) 1,000 mls @ 1,000 mls/hr IV BOLUS ONE Stop: 04/21/19 19:20 Last Infusion: 04/21/19 20:39 Dose: 0 mls/hr Documented by: Admin: 04/21/19 18:33 Dose: 1,000 mls/hr Documented by: VESNA Ondansetron HCl (Zofran) 4 mg IV NOW ONE Stop: 04/21/19 16:04 Last Admin: 04/21/19 16:21 Dose: 4 mg Documented by: VESNA Pantoprazole Sodium (Protonix) 40 mg IV NOW ONE Stop: 04/21/19 16:04 Last Admin: 04/21/19 16:20 Dose: 40 mg Documented by: VESNA Vital Signs Vital signs: Vital Signs - 8 hr 04/21/19 15:43 Pulse Rate 94 H Respiratory Rate 14 Blood Pressure 158/81 H Pulse Oximetry 97 MDM - Nausea/Vomiting/Diarrhea Lab Data Attestation: I reviewed the patient's lab results. Lab results narrative: anion gap 13 Result diagrams: 04/21/19 16:00 04/21/19 16:00 Labs: Lab Results 04/21/19 04/21/19 04/21/19 Range/Units 16:00 16:00 16:00 WBC 10.9 (4.5-11.0) X10^3/uL RBC 4.50 (4.5-5.9) X10^6/uL Hgb 13.7 (13.5-17.5) g/dL Hct 38.3 L (41-53) % MCV 85.2 (80-100) fL MCH 30.4 (26-34) PG MCHC 35.7 (30-36) % RDW 12.5 (11.6-14.8) % Plt Count 200 (150-400) X10^3/uL Neut % (Auto) 84.5 H (50-75) % Lymph % (Auto) 10.4 L (25-40) % [place] % (Auto) 4.6 (3-14) % Eos % (Auto) 0.1 L (2-4) % Baso % (Auto) 0.4 (0-2) % Neut # (Auto) 9200 H (5230-5667) /uL Lymph # (Auto) 1100 (8261-7936) /uL [place] # (Auto) 500 (0-900) /uL Eos # (Auto) 0 (0-450) /uL Baso # (Auto) 0 (0-100) /uL Sodium 135 L (137-145) mmol/L Potassium 4.3 (3.4-5.1) mmol/L Chloride 99 (98-107) mmol/L Carbon Dioxide 23 (22-32) mmol/L BUN 36 H (9-20) mg/dL Creatinine 2.40 H (0.66-1.25) mg/dL Estimated GFR 29.7 L (>60) mL/min BUN/Creatinine Ratio 15.0 (6-22) Glucose 211 H (70-100) mg/dL Lactate 0.9 (0.7-2.1) mmol/L Calcium 9.8 (8.4-10.2) mg/dL Total Bilirubin 1.1 (0.2-1.3) mg/dL AST 27 (17-59) IU/L ALT 27 (21-72) IU/L Alkaline Phosphatase 116 (38-126) U/L Troponin I (0.01-0.034) ng/mL Total Protein 7.6 (6.3-8.2) g/dL Albumin 4.2 (3.5-5.0) g/dL Globulin 3.4 (1.7-4.1) g/dL Albumin/Globulin Ratio 1.2 (1.0-2.8) Lipase 22 L (23-300) U/L Urine RBC (0-5/HPF) Urine WBC (0-5/HPF) Ur Squamous Epith Cells (0-5/HPF) Calcium Oxalate Crystal Amorphous Sediment Urine Bacteria (None) Hyaline Casts (None) Ur Culture Indicated? Ketones 2.45 H (<0.27) mmol/L 04/21/19 04/21/19 Range/Units 16:00 18:45 WBC (4.5-11.0) X10^3/uL RBC (4.5-5.9) X10^6/uL Hgb (13.5-17.5) g/dL Hct (41-53) % MCV (80-100) fL MCH (26-34) PG MCHC (30-36) % RDW (11.6-14.8) % Plt Count (150-400) X10^3/uL Neut % (Auto) (50-75) % Lymph % (Auto) (25-40) % [place] % (Auto) (3-14) % Eos % (Auto) (2-4) % Baso % (Auto) (0-2) % Neut # (Auto) (4998-2073) /uL Lymph # (Auto) (4857-2501) /uL [place] # (Auto) (0-900) /uL Eos # (Auto) (0-450) /uL Baso # (Auto) (0-100) /uL Sodium (137-145) mmol/L Potassium (3.4-5.1) mmol/L Chloride (98-107) mmol/L Carbon Dioxide (22-32) mmol/L BUN (9-20) mg/dL Creatinine (0.66-1.25) mg/dL Estimated GFR (>60) mL/min BUN/Creatinine Ratio (6-22) Glucose (70-100) mg/dL Lactate (0.7-2.1) mmol/L Calcium (8.4-10.2) mg/dL Total Bilirubin (0.2-1.3) mg/dL AST (17-59) IU/L ALT (21-72) IU/L Alkaline Phosphatase (38-126) U/L Troponin I < 0.012 (0.01-0.034) ng/mL Total Protein (6.3-8.2) g/dL Albumin (3.5-5.0) g/dL Globulin (1.7-4.1) g/dL Albumin/Globulin Ratio (1.0-2.8) Lipase (23-300) U/L Urine RBC 1-5/hpf (0-5/HPF) Urine WBC 1-5/hpf (0-5/HPF) Ur Squamous Epith Cells 0-1 /hpf (0-5/HPF) Calcium Oxalate Crystal Few H Amorphous Sediment 1+ Urine Bacteria Occasional (0-1) (None) Hyaline Casts 1-5/lpf (None) Ur Culture Indicated? Cult not indicated Ketones (<0.27) mmol/L Point of Care Testing Glucose POC 190 Urine Dip Bedside Urine Glucose 100 mg/dl Bedside Urine Bilirubin + 1 Bedside Urine Ketone ++ 40 Urine Specific [place] 1.030 Bedside Urine Occult Blood + Bedside Urine pH 5.0 Bedside Urine Protein +++ 300 Bedside Urine Urobilinogen +/- 1mg Bedside Urine Nitrite - Negative Bedside Urine Leukocytes - Negative Esterase MDM Narrative Medical decision making narrative: Patient's creatinine today is 2.4 in August of 2018 it was 1.5. He states he has been trying to drink some water but maybe it is not enough. His he urinated after 3 L of IV fluid. He is tolerating oral fluids. He has no sign of DKA. He has had food. He overall appears well. 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 He is given copies of his blood work. At this time no need for admission to hospital. Discharge Plan Departure Patient Disposition: Home Clinical Impression: Acute dehydration, Acute kidney injury Discharge Date/Time: 04/21/19 21:05 Instructions: DI for Dehydration -- Adult Activity Restrictions/Additional Instructions: *You have been diagnosed with dehydration acute kidney injury *What to do: Today her creatinine is 2.4. Increase your fluid intake avoid NSAIDs such as Motrin, ibuprofen, Aleve (these can cause more damage to kidney) *Continue to take medications as directed-->SENT TO [facility] [place] Zofran 4 mg every 8 hours if needed for nausea vomiting Omeprazole 20 mg once daily on an empty stomach before meals *Follow up with your primary care provider in 2-3 days *Return to ER if you should have inability to urinate persistent vomiting increased abdominal pain or any new, worsening or concerning symptoms Prescriptions: New ondansetron 4 mg tablet,disintegrating 4 mg PO Q8H PRN (Reason: nausea and vomiting) Qty: 10 RF: 0 omeprazole 20 mg capsule,delayed release(DR/EC) 20 mg PO DAILY PRN (Reason: acid reflux) Qty: 30 RF: 0 No Action losartan 50 mg Tablet 50 mg PO DAILY Qty: 0 RF: 0 insulin lispro [Humalog U-100 Insulin] 100 unit/mL solution 2 unit continuous subcutaneous infusion DAILY RF: 0 albuterol sulfate [Ventolin HFA] 90 mcg/actuation HFA aerosol inhaler 2 puff INHALATION Q6H PRN (Reason: Shortness Of Breath Or Wheezing) RF: 0
[2019-04-21 16:13] LABS: Add Manual Diff / Slide Review NO; Basophils Absolute Auto 0 /uL (0-100); Basophils Percent Auto 0.4 % (0-2); Eosinophils Absolute Auto 0 /uL (0-450); Eosinophils Percent Auto 0.1 % (2-4); Hematocrit 38.3 % (41-53); Hemoglobin 13.7 g/dL (13.5-17.5); Lymphocytes Absolute Auto 1100 /uL (1100-4500); Lymphocytes Percent Auto 10.4 % (25-40); Mean Corpuscular HGB Conc 35.7 % (30-36); Mean Corpuscular Hemoglobin 30.4 PG (26-34); Mean Corpuscular Volume 85.2 fL (80-100); Monocytes Absolute Auto 500 /uL (0-900); Monocytes Percent Auto 4.6 % (3-14); Neutrophils Absolute Auto 9200 /uL (1500-7000); Neutrophils Percent Auto 84.5 % (50-75); Platelet Count 200 X10^3/uL (150-400); Red Cell Distribution Width 12.5 % (11.6-14.8); White Blood Cell Count 10.9 X10^3/uL (4.5-11.0)
[2019-04-21] MEDS: SODIUM CHLORIDE 0.9% 1,000 ML 1000 ML IV ×3 (16:20→18:33)
[2019-04-21] MEDS: PANTOPRAZOLE 40 MG VIAL IV (16:20)
[2019-04-21] MEDS: ONDANSETRON 4 MG/2 ML INJ IV (16:21)
[2019-04-21 16:33] LABS: Alanine Aminotransferase 27 IU/L (21-72); Albumin 4.2 g/dL (3.5-5.0); Albumin Globulin Ratio 1.2 (1.0-2.8); Alkaline Phosphatase 116 U/L (38-126); Aspartate Aminotransferase 27 IU/L (17-59); Bilirubin Total 1.1 mg/dL (0.2-1.3); Blood Urea Nitrogen 36 mg/dL (9-20); Calcium 9.8 mg/dL (8.4-10.2); Carbon Dioxide 23 mmol/L (22-32); Chloride 99 mmol/L (98-107); Estimated Glomerular Filt Rate 29.7 mL/min (>60); Globulin 3.4 g/dL (1.7-4.1); Glucose 211 mg/dL (70-100); HEMOLYSIS 25 (0-50); Lipase 22 U/L (23-300); Potassium 4.3 mmol/L (3.4-5.1); Sodium 135 mmol/L (137-145); Total Protein 7.6 g/dL (6.3-8.2)
[2019-04-21 16:34] LABS: Lactate (Lactic Acid) 0.9 mmol/L (0.7-2.1)
[2019-04-21 16:36] LABS: Ketones (Beta-Hydroxybutyrate) 2.45 mmol/L (<0.27)
[2019-04-21 16:48] LABS: Troponin I < 0.012 ng/mL (0.01-0.034)
[2019-04-21] MEDS: MAG HYDROX/ALUMINUM/SIMETH SUS 20 ML, LIDOCAINE VISCOUS 2% 15 ML PO (17:19)
[2019-04-21 19:26] LABS: Amorphous Sediment Urine 1+; Bacteria Urine Occasional (0-1); Calcium Oxalate Crystals Urine Few; Culture Indicated Urine Cult Not Indicated; Hyaline Casts Urine 1-5/LPF; RBC Urine 1-5/HPF (0-5/HPF); Squamous Epithelial Cell Urine 0-1 /HPF (0-5/HPF); WBC Urine 1-5/HPF (0-5/HPF)
== END 2019-04-21 21:05 | disposition home or self-care (01) ==
PROVIDERS: Emergency Provider Emergency Medicine
DX: E86.0 Dehydration (principal); N17.9 Acute kidney failure, unspecified
CPT/HCPCS: 36591; 80053; 81003; 81015; 82009; 82962; 83605; 83690; 84484; 85025; 93005; 93010; 96361; 96374; 96375; 99284; C9113; J2405

== ENCOUNTER 2022-10-11 21:23 | Inpatient (IN) | payer OTHER, SELFPAY ==
[2019-04-21 15:37] VITALS: BMI 27.1
[2022-10-11] VITALS (10 sets, daily range): BP systolic 182–184; BP diastolic 86–99; PULSE 104–118; RESP 18–23; TEMP 39.3; O2SAT 97–98; BMI 27.1
--- NOTE | 2022-10-11 21:55 | DI.RAD.S_ITS ---
PROCEDURE: XR CHEST 1V INDICATIONS: suspected sepsis TECHNIQUE: One view of the chest was acquired. COMPARISON: None. FINDINGS: Surgical changes and devices: None. Lungs and pleura: Lungs are clear. No pleural effusions or pneumothorax. Mediastinum: Mediastinal contours appear normal. Heart size is normal. Bones and chest wall: No suspicious bony lesions. Overlying soft tissues appear unremarkable. IMPRESSION: 1. No acute cardiopulmonary disease. Dictated by: Pastor Goyal M.D. on 10/11/2022 at 23:56 Approved by: Pastor Goyal M.D. on 10/11/2022 at 23:56
--- NOTE | 2022-10-11 22:00 | ED_ITS ---
HPI - General Adult General Chief complaint: Fever Stated complaint: acid reflux flare, diabetic, sugers dropping, vomi Time Seen by Provider: 10/11/22 21:59 Source: patient Mode of arrival: Ambulatory History of Present Illness HPI narrative: 47M non smoker with history of DM, HTN, CKD, asthma presents with family with fever and chills as well as dry hacking cough nausea and vomiting for the past 24 hours or so. He denies any runny nose or sore throat but has had a dry and hacking cough and a few episodes of vomiting. He denies any chest pain but does feel short of breath and fatigued. He is had episodes of abdominal pain and fe lt like he was having problems with reflux initially but no longer is having that discomfort. He denies any urinary complaints. Related Data Home Medications Medication Instructions Recorded Confirmed losartan 50 mg tablet 50 mg PO DAILY Hypertension ##0 06/03/18 04/21/19 albuterol sulfate 90 mcg/actuation 2 puff inhalation Q6H PRN 04/21/19 04/21/19 aerosol inhaler (Ventolin HFA) Shortness Of Breath Or Wheezing insulin lispro 100 unit/mL 2 unit continuous subcutaneous 04/21/19 04/21/19 subcutaneous solution (Humalog infusion DAILY U-100 Insulin) Previous Rx's Medication Instructions Recorded omeprazole 20 mg capsule,delayed 20 mg PO DAILY PRN acid reflux #30 04/21/19 release caps ondansetron 4 mg disintegrating 4 mg PO Q8H PRN nausea and 04/21/19 tablet vomiting #10 tabs Allergies Allergy/AdvReac Type Severity Reaction Status Date / Time ketamine Allergy Unknown Verified 04/21/19 16:53 fentanyl AdvReac Intermediate Nausea Verified 06/03/18 15:30 Review of Systems Review of Systems Narrative: GENERAL: See HPI. HEENT: See HPI RESPIRATORY: See HPI CARDIOVASCULAR: See HPI GASTROINTESTINAL: See HPI : Denies dysuria, frequency, incontinence, hematuria, urinary retention. MUSCULOSKELETAL: denies weakness, joint pain, or bony pain SKIN: Denies rash, skin lesions, or other NEUROLOGIC: Denies weakness, headache, numbness, change in speech, confusion, seizures, incoordination. PSYCHIATRIC: No concerning psychosocial issues. 12 point review of systems is negative except for those stated above Patient History Medical History (Updated 03/02/23 @ 02:32 by Brooks Mora DO) Hypertension Insulin dependent diabetes mellitus Neuropathy Retinopathy due to secondary diabetes Family History Grandfather Heart disease Heart attack Social History household members: none Smoking Status: Never smoker Smoking Status: Never smoker alcohol intake frequency: holidays/special occasions only Substance Use Type: does not use Exam Narrative Exam Narrative: GENERAL: [47] year old patient appears stated age. Well-developed patient, in obvious distress, feeling unwell, pale, tachycardic and diaphoretic HEAD: Atraumatic. Normocephalic. EYES: Pupils equal round and reactive. Extraocular motions intact. No scleral icterus. No injection or drainage. ENT: Nose without bleeding, purulent drainage. Throat without erythema, tonsillar hypertrophy or exudate. Airway patent. NECK: Trachea midline. Non tender CARDIOVASCULAR tachycardic and regular rhythm without murmurs, gallops, or rubs. RESPIRATORY: Clear to auscultation. Breath sounds equal bilaterally. No wheezes, rales, or rhonchi. GASTROINTESTINAL: Abdomen soft, non-tender, nondistended. EXTREMITIES: No edema or joint tenderness. BACK: Nontender without deformity or crepitance. No flank tenderness. NEURO: AOx3. SKIN: No rash or erythema of visible areas Initial Vital Signs Initial Vital Signs: Vital Signs Temperature 102.8 F H 10/11/22 21:46 Pulse Rate 106 H 10/11/22 21:46 Respiratory Rate 18 10/11/22 21:46 Pulse Oximetry 97 10/11/22 21:46 Oxygen Delivery Method Room Air 10/11/22 21:46 Course Orders Ordered: ED Orders 10/11/22 20:20 Complete Blood Count AUTO DIFF Stat Comprehensive Metabolic Panel Stat Ketones (Beta-Hydroxybutyrate) Stat Lactate (Lactic Acid) Stat Lipase Stat Partial Thromboplastin Time Stat Procalcitonin Stat Prothrombin Time INR Stat 10/11/22 21:55 XR chest 1V Stat Covid-19 + FLU A/B + RSV - PCR Stat RT Consult Eval and Treat NOW 10/11/22 22:35 Blood Culture Stat 10/11/22 22:42 Urine Culture Stat Urine Microscopic Stat 03/01/23 23:37 US renal complete Stat VBG [Venous Blood Gas] Stat 10/12/22 01:00 Creatinine Urine Random Stat Sodium Urine Random Stat 10/12/22 01:18 BMP [Basic Metabolic Panel] Stat 10/12/22 02:41 CT chest abd pel wo con Stat Ondansetron HCl (Ondansetron 4 Mg/2 Ml Inj) 4 mg IV NOW PRN PRN Reason: Nausea And Vomiting Discontinued Medications Sodium Chloride (Normal Saline 0.9%) 1,000 mls @ 1,000 mls/hr IV BOLUS ONE Stop: 10/11/22 22:54 Last Admin: 10/11/22 23:06 Dose: Not Given Documented By: RB Lactated Ringer's (Lactated Ringers) 3,197.82 mls @ 1,065.94 mls/hr 30 ml/kg infuse over 3 hr (3197.82 ml) IV NOW ONE Stop: 10/12/22 01:00 Last Infusion: 10/12/22 02:07 Dose: 999 mls/hr Documented By: Admin: 10/11/22 22:56 Dose: 1,065.94 mls/hr Documented By: RB Ceftriaxone Sodium 2,000 mg/ (Sodium Chloride) 100 mls @ 200 mls/hr IV NOW ONE Stop: 10/11/22 22:02 Last Infusion: 10/11/22 23:35 Dose: 0 mls/hr Documented By: Admin: 10/11/22 22:55 Dose: 200 mls/hr Documented By: RB Reevaluation(s) Reevaluation #1: Patient feeling significant improvement after above-stated therapies Consultations Consultation #1: Discussed with hospitalist, happy to accept on his service Vital Signs Vital signs: Vital Signs - 8 hr 10/11/22 21:46 10/11/22 22:00 10/11/22 22:00 Temperature 102.8 F H Pulse Rate 106 H 107 H Respiratory Rate 18 22 Blood Pressure 184/99 H Pulse Oximetry 97 98 Oxygen Delivery Method Room Air 10/11/22 22:15 10/11/22 22:15 10/11/22 22:30 Temperature Pulse Rate 106 H 104 H Respiratory Rate Blood Pressure 182/96 H Pulse Oximetry 97 97 Oxygen Delivery Method 10/11/22 22:31 10/11/22 22:31 10/11/22 22:51 Temperature Pulse Rate 104 H 118 H Respiratory Rate Blood Pressure 182/86 H Pulse Oximetry 97 Oxygen Delivery Method 10/11/22 23:00 10/11/22 23:15 10/11/22 23:30 Temperature Pulse Rate 108 H 108 H 104 H Respiratory Rate Blood Pressure Pulse Oximetry 98 98 98 Oxygen Delivery Method 10/11/22 23:45 10/12/22 00:00 10/12/22 00:11 Temperature Pulse Rate 104 H 103 H Respiratory Rate 23 18 Blood Pressure 175/90 H Pulse Oximetry 97 98 Oxygen Delivery Method 10/12/22 00:11 10/12/22 00:15 10/12/22 00:15 Temperature Pulse Rate 103 H 110 H Respiratory Rate Blood Pressure 159/76 H Pulse Oximetry 97 98 Oxygen Delivery Method 10/12/22 00:30 10/12/22 00:30 10/12/22 00:45 Temperature Pulse Rate 105 H Respiratory Rate 20 Blood Pressure 194/94 H 183/90 H Pulse Oximetry 98 Oxygen Delivery Method 10/12/22 00:45 10/12/22 01:00 10/12/22 01:00 Temperature Pulse Rate 102 H 106 H Respiratory Rate 20 23 Blood Pressure 185/89 H Pulse Oximetry 97 97 Oxygen Delivery Method 10/12/22 01:15 10/12/22 01:15 10/12/22 01:30 Temperature Pulse Rate 103 H Respiratory Rate 21 Blood Pressure 185/92 H 169/89 H Pulse Oximetry 97 Oxygen Delivery Method 10/12/22 01:30 10/12/22 01:45 Temperature Pulse Rate 101 H 103 H Respiratory Rate 18 Blood Pressure Pulse Oximetry 96 98 Oxygen Delivery Method Medical Decision Making Lab Data 10/11/22 20:20 10/12/22 01:18 Labs: Lab Results 10/11/22 10/11/22 10/11/22 Range/Units 20:20 20:20 20:20 WBC 4.1 L (4.5-11.0) X10^3/uL RBC 4.94 (4.5-5.9) X10^6/uL Hgb 14.6 (13.5-17.5) g/dL Hct 42.3 (41-53) % MCV 85.7 (80-100) fL MCH 29.5 (26-34) PG MCHC 34.4 (30-36) % RDW 13.4 (11.6-14.8) % Plt Count 135 L (150-400) X10^3/uL Neut % (Auto) 75.7 H (50-75) % Lymph % (Auto) 8.4 L (25-40) % [place] % (Auto) 15.1 H (3-14) % Eos % (Auto) 0.1 L (2-4) % Baso % (Auto) 0.7 (0-2) % Neut # (Auto) 3100 (8489-6628) /uL Lymph # (Auto) 300 L (5157-4981) /uL [place] # (Auto) 600 (0-900) /uL Eos # (Auto) 0 (0-450) /uL Baso # (Auto) 0 (0-100) /uL PT 13.2 H (10.1-12.7) SECONDS INR 1.2 (0.9-1.3) APTT 28 (26-36) SECONDS Sodium 132 L (137-145) mmol/L Potassium 5.7 H (3.4-5.1) mmol/L Chloride 102 (98-107) mmol/L Carbon Dioxide 23 (22-32) mmol/L BUN 34 H (9-20) mg/dL Creatinine 3.50 H (0.66-1.25) mg/dL Estimated GFR 21 L (>60) mL/min BUN/Creatinine Ratio 9.7 (6-22) Glucose 244 H (70-100) mg/dL Lactate (0.7-2.1) mmol/L Calcium 9.1 (8.4-10.2) mg/dL Total Bilirubin 1.3 (0.2-1.3) mg/dL AST 32 (17-59) IU/L ALT 34 (<50) IU/L Alkaline Phosphatase 112 (38-126) U/L Total Protein 8.0 (6.3-8.2) g/dL Albumin 4.4 (3.5-5.0) g/dL Globulin 3.6 (1.7-4.1) g/dL Albumin/Globulin Ratio 1.2 (1.0-2.8) Lipase 41 (23-300) U/L Procalcitonin 0.56 H (<0.5) ng/mL Urine RBC (0-5/HPF) Urine WBC (0-5/HPF) Amorphous Sediment Urine Bacteria (None) Granular Casts (None) Micro UA Comment Ur Random Sodium (30-90) mmol/L Urine Creatinine mg/dL Ketones (<0.27) mmol/L SARS-CoV-2 (PCR) (Negative) Influenza A (RT-PCR) (NEGATIVE) Influenza B (RT-PCR) (NEGATIVE) RSV (PCR) (Negative) 10/11/22 10/11/22 10/11/22 Range/Units 20:20 20:20 21:55 WBC (4.5-11.0) X10^3/uL RBC (4.5-5.9) X10^6/uL Hgb (13.5-17.5) g/dL Hct (41-53) % MCV (80-100) fL MCH (26-34) PG MCHC (30-36) % RDW (11.6-14.8) % Plt Count (150-400) X10^3/uL Neut % (Auto) (50-75) % Lymph % (Auto) (25-40) % [place] % (Auto) (3-14) % Eos % (Auto) (2-4) % Baso % (Auto) (0-2) % Neut # (Auto) (9393-2240) /uL Lymph # (Auto) (2110-7473) /uL [place] # (Auto) (0-900) /uL Eos # (Auto) (0-450) /uL Baso # (Auto) (0-100) /uL PT (10.1-12.7) SECONDS INR (0.9-1.3) APTT (26-36) SECONDS Sodium (137-145) mmol/L Potassium (3.4-5.1) mmol/L Chloride (98-107) mmol/L Carbon Dioxide (22-32) mmol/L BUN (9-20) mg/dL Creatinine (0.66-1.25) mg/dL Estimated GFR (>60) mL/min BUN/Creatinine Ratio (6-22) Glucose (70-100) mg/dL Lactate 1.1 (0.7-2.1) mmol/L Calcium (8.4-10.2) mg/dL Total Bilirubin (0.2-1.3) mg/dL AST (17-59) IU/L ALT (<50) IU/L Alkaline Phosphatase (38-126) U/L Total Protein (6.3-8.2) g/dL Albumin (3.5-5.0) g/dL Globulin (1.7-4.1) g/dL Albumin/Globulin Ratio (1.0-2.8) Lipase (23-300) U/L Procalcitonin (<0.5) ng/mL Urine RBC (0-5/HPF) Urine WBC (0-5/HPF) Amorphous Sediment Urine Bacteria (None) Granular Casts (None) Micro UA Comment Ur Random Sodium (30-90) mmol/L Urine Creatinine mg/dL Ketones 1.54 H (<0.27) mmol/L SARS-CoV-2 (PCR) Positive H (Negative) Influenza A (RT-PCR) Flu a negative (NEGATIVE) Influenza B (RT-PCR) Flu b negative (NEGATIVE) RSV (PCR) Negative (Negative) 10/11/22 10/11/22 10/12/22 Range/Units 22:42 22:42 01:18 WBC (4.5-11.0) X10^3/uL RBC (4.5-5.9) X10^6/uL Hgb (13.5-17.5) g/dL Hct (41-53) % MCV (80-100) fL MCH (26-34) PG MCHC (30-36) % RDW (11.6-14.8) % Plt Count (150-400) X10^3/uL Neut % (Auto) (50-75) % Lymph % (Auto) (25-40) % [place] % (Auto) (3-14) % Eos % (Auto) (2-4) % Baso % (Auto) (0-2) % Neut # (Auto) (3048-0754) /uL Lymph # (Auto) (4452-0628) /uL [place] # (Auto) (0-900) /uL Eos # (Auto) (0-450) /uL Baso # (Auto) (0-100) /uL PT (10.1-12.7) SECONDS INR (0.9-1.3) APTT (26-36) SECONDS Sodium 134 L (137-145) mmol/L Potassium 5.3 H (3.4-5.1) mmol/L Chloride 103 (98-107) mmol/L Carbon Dioxide 22 (22-32) mmol/L BUN 34 H (9-20) mg/dL Creatinine 3.31 H (0.66-1.25) mg/dL Estimated GFR 22 L (>60) mL/min BUN/Creatinine Ratio 10.3 (6-22) Glucose 253 H (70-100) mg/dL Lactate (0.7-2.1) mmol/L Calcium 8.3 L (8.4-10.2) mg/dL Total Bilirubin (0.2-1.3) mg/dL AST (17-59) IU/L ALT (<50) IU/L Alkaline Phosphatase (38-126) U/L Total Protein (6.3-8.2) g/dL Albumin (3.5-5.0) g/dL Globulin (1.7-4.1) g/dL Albumin/Globulin Ratio (1.0-2.8) Lipase (23-300) U/L Procalcitonin (<0.5) ng/mL Urine RBC None seen (0-5/HPF) Urine WBC None seen (0-5/HPF) Amorphous Sediment 1+ Urine Bacteria None seen (None) Granular Casts 1-5/lpf (None) Micro UA Comment * Ur Random Sodium 29 L (30-90) mmol/L Urine Creatinine 230.4 mg/dL Ketones (<0.27) mmol/L SARS-CoV-2 (PCR) (Negative) Influenza A (RT-PCR) (NEGATIVE) Influenza B (RT-PCR) (NEGATIVE) RSV (PCR) (Negative) Urine Dip Bedside Urine Glucose 250 mg/dl Bedside Urine Bilirubin - Negative Bedside Urine Ketone - Negative Urine Specific [place] 1.030 Bedside Urine Occult Blood ++ Bedside Urine pH 5.5 Bedside Urine Protein +++ 300 Bedside Urine Urobilinogen - Negative Bedside Urine Nitrite - Negative Bedside Urine Leukocytes - Negative Esterase Point of care testing: Urine Dip Bedside Urine Glucose 250 mg/dl Bedside Urine Bilirubin - Negative Bedside Urine Ketone - Negative Urine Specific [place] 1.030 Bedside Urine Occult Blood ++ Bedside Urine pH 5.5 Bedside Urine Protein +++ 300 Bedside Urine Urobilinogen - Negative Bedside Urine Nitrite - Negative Bedside Urine Leukocytes - Negative Esterase Imaging Data Chest x-ray: Radiologist's Impression: NAP Renal US: Radiologist's Impression: No obstructive process MDM Narrative Medical decision making narrative: CC: 47M diabetic with fever, vomiting, cough Complicating co-morbidities: Diabetic, hypertensive, asthmatic Data collected from: Patient Medical records reviewed: Prior notes reviewed in our EMR Differential considered, but not limited to: COVID, pneumonia, pancreatitis, gallbladder disease versus other Exam documented above, pertinent findings include: Tachycardic, increased work of breathing Lab Test results independently reviewed as above. Pertinent findings: Creatinine elevated above baseline, procalcitonin elevated. No anion gap, no significant hyperglycemia. Independently reviewed EKG as above Imaging studies independently reviewed: No pulmonary infiltrate on chest x-ray, renal ultrasound demonstrates no obstructive process Treatments: Sepsis protocol initiated, fluids at 30 cc/kilogram, antibiotics Re-evaluations: Patient improved with fluids, better color, less nausea Discussion: Patient presents with sepsis type picture and has treated as such, blood cultures, lactate, fluids and early antibiotics ordered. Respiratory panel positive for COVID, thankfully patient has no significant respiratory symptoms in an ongoing fashion and is not hypoxemic. Patient still quite ill with significant change in kidney function from baseline. This does improve w ith fluids and there is no evidence of obstructive process. Initial elevated potassium of 5.7 improved to 5.3 with fluids. Patient requires hospitalization for further evaluation and stabilization of his condition Discharge Plan Departure Patient Disposition: Admitted as Observation Clinical Impression: COVID-19
[2022-10-11 22:41] LABS: Add Manual Diff / Slide Review NO; Basophils Absolute Auto 0 /uL (0-100); Basophils Percent Auto 0.7 % (0-2); Eosinophils Absolute Auto 0 /uL (0-450); Eosinophils Percent Auto 0.1 % (2-4); Hematocrit 42.3 % (41-53); Hemoglobin 14.6 g/dL (13.5-17.5); Lymphocytes Absolute Auto 300 /uL (1100-4500); Lymphocytes Percent Auto 8.4 % (25-40); Mean Corpuscular HGB Conc 34.4 % (30-36); Mean Corpuscular Hemoglobin 29.5 PG (26-34); Mean Corpuscular Volume 85.7 fL (80-100); Monocytes Absolute Auto 600 /uL (0-900); Monocytes Percent Auto 15.1 % (3-14); Neutrophils Absolute Auto 3100 /uL (1500-7000); Neutrophils Percent Auto 75.7 % (50-75); Platelet Count 135 X10^3/uL (150-400); Red Blood Cell Count 4.94 X10^6/uL (4.5-5.9); Red Cell Distribution Width 13.4 % (11.6-14.8); White Blood Cell Count 4.1 X10^3/uL (4.5-11.0)
[2022-10-11 22:43] LABS: INR 1.2 (0.9-1.3); Prothrombin Time 13.2 SECONDS (10.1-12.7)
[2022-10-11 22:45] LABS: Lactate (Lactic Acid) 1.1 mmol/L (0.7-2.1)
[2022-10-11 22:46] LABS: PTT Partial Thromboplastin Tim 28 SECONDS (26-36)
[2022-10-11 22:47] LABS: Alanine Aminotransferase 34 IU/L (<50); Albumin 4.4 g/dL (3.5-5.0); Albumin Globulin Ratio 1.2 (1.0-2.8); Alkaline Phosphatase 112 U/L (38-126); Aspartate Aminotransferase 32 IU/L (17-59); BUN Creatinine Ratio 9.7 (6-22); Bilirubin Total 1.3 mg/dL (0.2-1.3); Blood Urea Nitrogen 34 mg/dL (9-20); Calcium 9.1 mg/dL (8.4-10.2); Carbon Dioxide 23 mmol/L (22-32); Chloride 102 mmol/L (98-107); Estimated Glomerular Filt Rate 21 mL/min (>60); Globulin 3.6 g/dL (1.7-4.1); Glucose 244 mg/dL (70-100); HEMOLYSIS < 15 (0-50); Lipase 41 U/L (23-300); Sodium 132 mmol/L (137-145)
[2022-10-11 22:49] LABS: Potassium 5.7 mmol/L (3.4-5.1)
[2022-10-11] MEDS: cefTRIAXone 2,000 MG in SODIUM CHLORIDE 0.9% 100 ML 200 MG IV (22:55)
[2022-10-11] MEDS: LACTATED RINGERS 1065.94 ML IV (22:56)
[2022-10-11 23:03] LABS: Procalcitonin 0.56 ng/mL (<0.5)
--- NOTE | 2022-10-11 23:37 | DI.US.S_ITS ---
PROCEDURE: US RENAL COMPLETE INDICATIONS: acute kidney injury TECHNIQUE: Real-time scanning was performed of the kidneys and bladder, with image documentation. COMPARISON: None. FINDINGS: Kidneys: Right kidney measures 11.6 cm long; left kidney measures 12.9 cm long. Right renal cortical thickness is 1.4 cm; left renal cortical thickness is 1.4 cm. Renal cortical echotexture is normal. No hydronephrosis or nephrolithiasis. No suspicious solid mass lesions. Bladder: Urinary bladder was nondistended limiting evaluation. Miscellaneous: No free pelvic fluid. IMPRESSION: 1. No evidence of hydronephrosis. Dictated by: Pastor Goyal M.D. on 10/12/2022 at 1:18 Approved by: Pastor Goyal M.D. on 10/12/2022 at 1:19
[2022-10-11 23:50] LABS: Influenza A - CEPHEID Flu A NEGATIVE (NEGATIVE); Influenza B - CEPHEID Flu B NEGATIVE (NEGATIVE); Respiratory Syncytial Virus Negative (Negative)
[2022-10-11 23:53] LABS: COVID-19 CEPHEID 4-PLEX PCR POSITIVE (Negative)
[2022-10-11 23:59] LABS: Ketones (Beta-Hydroxybutyrate) 1.54 mmol/L (<0.27)
[2022-10-12] VITALS (50 sets, daily range): BP systolic 118–200; BP diastolic 66–99; PULSE 80–110; RESP 13–29; TEMP 36.2–36.8; O2SAT 93–99; BMI 27.7
[2022-10-12 00:19] LABS: Amorphous Sediment Urine 1+; Bacteria Urine None Seen; Granular Casts Urine 1-5/LPF; RBC Urine None Seen (0-5/HPF); WBC Urine None Seen (0-5/HPF)
[2022-10-12 01:36] LABS: BUN Creatinine Ratio 10.3 (6-22); Blood Urea Nitrogen 34 mg/dL (9-20); Calcium 8.3 mg/dL (8.4-10.2); Carbon Dioxide 22 mmol/L (22-32); Chloride 103 mmol/L (98-107); Estimated Glomerular Filt Rate 22 mL/min (>60); Glucose 253 mg/dL (70-100); HEMOLYSIS < 15 (0-50); Potassium 5.3 mmol/L (3.4-5.1); Sodium 134 mmol/L (137-145)
[2022-10-12 02:17] LABS: Creatinine Urine Random 230.4 mg/dL; Sodium Urine Random 29 mmol/L (30-90)
--- NOTE | 2022-10-12 02:41 | DI.CT.S_ITS ---
PROCEDURE: CT CHEST ABD PEL WO CON INDICATIONS: abdominal pain, fevers, ckd stage 4 TECHNIQUE: After the administration of oral contrast, 5 mm thick sections acquired from the lung apices to the symphysis pubis. 5 mm thick coronal and sagittal reformats acquired, with additional 7 mm coronal MIP reformats through the lungs. For radiation dose reduction, the following was used: automated exposure control, adjustment of mA and/or kV according to patient size. COMPARISON: None. FINDINGS: Image quality: Excellent. CHEST: Lungs and pleura: No acute air space opacities. No pleural effusions or pneumothorax. Central and peripheral airways are patent and normal in caliber. Mediastinum: Heart size is normal. The coronary arteries have atherosclerotic calcifications. No pericardial effusion. No mediastinal adenopathy by size criteria. Thoracic aorta and central pulmonary arteries are normal in size. Esophagus is normal in caliber. No hiatal hernia. Chest wall: No axillary or supraclavicular adenopathy by size criteria. Thyroid gland is normal . There is bilateral gynecomastia. ABDOMEN: Liver: The liver has no mass or intrahepatic biliary ductal dilatation. The portal vein and hepatic veins are patent. Biliary: The gallbladder has no gallstones, pericholecystic fluid, gallbladder wall thickening, or surrounding inflammatory change. Pancreas: The pancreas has no mass or ductal dilatation. There is no surrounding inflammation. Spleen: Normal size. There are no masses. Adrenals: No hypertrophy or nodules. Kidneys: No obstructive calculus or hydronephrosis. No solid mass. No cystic mass. Symmetric bilateral perinephric stranding is nonspecific. Bowel: The distal esophagus and stomach are normal. The small bowel has a normal caliber and appearance. The terminal ileum is normal. The large bowel has a normal caliber and appearance. The appendix is is dilated up to 1 centimeter but contains gas without significant stranding. No free fluid or air. Nodes and vessels: No retroperitoneal or mesenteric adenopathy by size criteria. Aorta and inferior vena cava are normal in size. There is diffuse atherosclerotic calcifications. Abdominal wall: No abdominal wall mass or hernia. Symmetric anterior abdominal wall subcutaneous nodular stranding likely due to subcutaneous injection sites or less likely infection. PELVIS: Genitourinary: The bladder has no wall thickening or mass. No bladder calcifications. Prostate is enlarged. Bone: No suspicious bony lesions. No vertebral body compression fractures. IMPRESSION: 1. The appendix is dilated up to 1 centimeter but contains gas and no fluid without surrounding stranding. Acute appendicitis is unlikely but cannot be excluded. Close follow-up as clinically indicated. 2. No other findings to explain fevers. Comment: Final report is concordant with preliminary interpretation by [facility] Dictated by: Tulio Hanna M.D. on 10/12/2022 at 8:25 Approved by: Tulio Hanna M.D. on 10/12/2022 at 8:32
[2022-10-12] MEDS: AZITHROMYCIN 500 MG in DEXTROSE 5% IN WATER 250 ML 250 MG IV (04:19)
[2022-10-12] MEDS: INSULIN GLARGINE 100 UNIT/ML 3ML PEN 50 UNIT SUBCUT ×2 (04:20→08:29)
--- NOTE | 2022-10-12 05:04 | PC.NURSE ---
At 0405 his poc glucose was 255.
[2022-10-12] MEDS: ONDANSETRON 4 MG/2 ML INJ IV (05:11)
--- NOTE | 2022-10-12 05:43 | PM.HP.1 ---
History of Present Illness History of Present Illness Date Patient Seen: 10/12/22 Time Patient Seen: 03:00 Chief complaint: acid reflux flare, diabetic, sugers dropping, vomi Narrative: Mr. Trevor Garrett is a 47M with PMH Type 1 DM on insulin pump, GERD, CKD stage 4, HTN who presents to the hospital with fevers and abdmominal discomfort. He notes he started feeling poorly a couple days ago. He had some abdominal pain in a band around his abdomen. He had some episodes of vomiting and nausea. He thought he was having some reflux as he has had issues with that before. He had a mild cough, and he had fevers as well. He denies shortness of breath or dysuria. He notes over the last year his GFR has been in the 20s. He states he uses an insulin pump with basal rate of 2.5u/hr from 8a-12a, and 1.3u/hr from 12a-8a. In the ED workup was done, vitals were notable for temp of 102.8, heart rate in the 100s, o2 sat 97% on room air. Labs notable for WBC 4.1, hgb 14.6, plts 135. Na 132, k 5.7, BUN 34, creatinine 3.50. Procal 0.56. He was given IV fluids and his creatinine improved to 3.31, and k improved to 5.3. Anion gap was 7. Urine sodium 29, urine creatinine 230.4. COVID positive. Chest xray showed no acute process. CT scan showed fluid in the esophagus, and gas in a 1cm dilated appendix. He was ordered for antibiotics and admitted for further treatment. Patient History Medical History Hypertension Insulin dependent diabetes mellitus Neuropathy Retinopathy due to secondary diabetes Family & Social History Family History Grandfather Heart disease Heart attack Social History: household members none Safety & Behavioral: Feels Safe in Current Yes Environment Tobacco & Substance use: Smoking Status Never smoker alcohol intake frequency holiday/special occasion Substance Use Type does not use Meds Home Medications and Allergies Home Medications Medication Instructions Recorded Confirmed Type losartan 50 mg tablet 50 mg PO DAILY Hypertension ##0 06/03/18 04/21/19 History albuterol sulfate 90 mcg/actuation 2 puff inhalation Q6H PRN 04/21/19 04/21/19 History aerosol inhaler (Ventolin HFA) Shortness Of Breath Or Wheezing insulin lispro 100 unit/mL 2 unit continuous subcutaneous 04/21/19 04/21/19 History subcutaneous solution (Humalog infusion DAILY U-100 Insulin) omeprazole 20 mg capsule,delayed 20 mg PO DAILY PRN acid reflux #30 04/21/19 Rx release caps ondansetron 4 mg disintegrating 4 mg PO Q8H PRN nausea and 04/21/19 Rx tablet vomiting #10 tabs Allergies Allergy/AdvReac Type Severity Reaction Status Date / Time ketamine Allergy Unknown Verified 04/21/19 16:53 fentanyl AdvReac Intermediate Nausea Verified 06/03/18 15:30 Review of Systems Review of Systems Narrative: 14 systems reviewed and negative aside from what is noted in HPI Exam Vital Signs (past 8 hours): - 10/11/22 21:46 10/11/22 22:00 10/11/22 22:00 Temperature 102.8 F H Pulse Rate 106 H 107 H Respiratory Rate 18 22 Blood Pressure 184/99 H Pulse Oximetry 97 98 Oxygen Delivery Method Room Air 10/11/22 22:15 10/11/22 22:15 10/11/22 22:30 Temperature Pulse Rate 106 H 104 H Respiratory Rate Blood Pressure 182/96 H Pulse Oximetry 97 97 Oxygen Delivery Method 10/11/22 22:31 10/11/22 22:31 10/11/22 22:51 Temperature Pulse Rate 104 H 118 H Respiratory Rate Blood Pressure 182/86 H Pulse Oximetry 97 Oxygen Delivery Method 10/11/22 23:00 10/11/22 23:15 10/11/22 23:30 Temperature Pulse Rate 108 H 108 H 104 H Respiratory Rate Blood Pressure Pulse Oximetry 98 98 98 Oxygen Delivery Method 10/11/22 23:45 10/12/22 00:00 10/12/22 00:11 Temperature Pulse Rate 104 H 103 H Respiratory Rate 23 18 Blood Pressure 175/90 H Pulse Oximetry 97 98 Oxygen Delivery Method 10/12/22 00:11 10/12/22 00:15 10/12/22 00:15 Temperature Pulse Rate 103 H 110 H Respiratory Rate Blood Pressure 159/76 H Pulse Oximetry 97 98 Oxygen Delivery Method 10/12/22 00:30 10/12/22 00:30 10/12/22 00:45 Temperature Pulse Rate 105 H Respiratory Rate 20 Blood Pressure 194/94 H 183/90 H Pulse Oximetry 98 Oxygen Delivery Method 10/12/22 00:45 10/12/22 01:00 10/12/22 01:00 Temperature Pulse Rate 102 H 106 H Respiratory Rate 20 23 Blood Pressure 185/89 H Pulse Oximetry 97 97 Oxygen Delivery Method 10/12/22 01:15 10/12/22 01:15 10/12/22 01:30 Temperature Pulse Rate 103 H Respiratory Rate 21 Blood Pressure 185/92 H 169/89 H Pulse Oximetry 97 Oxygen Delivery Method 10/12/22 01:30 10/12/22 01:45 10/12/22 02:00 Temperature Pulse Rate 101 H 103 H Respiratory Rate 18 Blood Pressure 185/87 H Pulse Oximetry 96 98 Oxygen Delivery Method 10/12/22 02:00 10/12/22 02:15 10/12/22 02:15 Temperature Pulse Rate 101 H 99 H Respiratory Rate 19 23 Blood Pressure 180/86 H Pulse Oximetry 98 97 Oxygen Delivery Method 10/12/22 02:30 10/12/22 02:30 10/12/22 02:45 Temperature Pulse Rate 101 H Respiratory Rate 24 Blood Pressure 181/88 H 188/92 H Pulse Oximetry 97 Oxygen Delivery Method 10/12/22 02:45 10/12/22 03:00 10/12/22 03:00 Temperature Pulse Rate 100 H 96 H Respiratory Rate 19 21 Blood Pressure 184/86 H Pulse Oximetry 97 96 Oxygen Delivery Method 10/12/22 03:24 10/12/22 03:26 10/12/22 03:26 Temperature Pulse Rate 110 H 110 H Respiratory Rate 20 Blood Pressure 200/98 H Pulse Oximetry 98 Oxygen Delivery Method 10/12/22 03:30 10/12/22 03:45 10/12/22 04:00 Temperature Pulse Rate 103 H 97 H 98 H Respiratory Rate 20 18 21 Blood Pressure Pulse Oximetry 97 96 96 Oxygen Delivery Method 10/12/22 04:15 10/12/22 04:30 10/12/22 04:45 Temperature Pulse Rate 98 H 108 H 100 H Respiratory Rate 23 26 H 13 Blood Pressure Pulse Oximetry 95 96 98 Oxygen Delivery Method 10/12/22 05:00 Temperature Pulse Rate 104 H Respiratory Rate 21 Blood Pressure Pulse Oximetry 96 Oxygen Delivery Method Oxygen Delivery Method Room Air Narrative Exam Narrative: GEN: in distress from pain HEENT: moist mucous membranes, PERRL NECK: trachea midline, no JVD PULM: clear bilaterally, no wheezes, rhonchi, rales ABD: soft, mild tenderness, no rebound guardingC CV: tachycardic, no murmurs EXT: warm and well perfused with no edema NEURO: awake, alert, oriented with no focal deficits Objective Labs 10/11/22 20:20 10/12/22 01:18 Labs: Laboratory Results - last 24 hr 10/11/22 10/11/22 10/11/22 20:20 20:20 20:20 WBC 4.1 L RBC 4.94 Hgb 14.6 Hct 42.3 MCV 85.7 MCH 29.5 MCHC 34.4 RDW 13.4 Plt Count 135 L Neut % (Auto) 75.7 H Lymph % (Auto) 8.4 L [place] % (Auto) 15.1 H Eos % (Auto) 0.1 L Baso % (Auto) 0.7 Neut # (Auto) 3100 Lymph # (Auto) 300 L [place] # (Auto) 600 Eos # (Auto) 0 Baso # (Auto) 0 PT 13.2 H INR 1.2 APTT 28 Sodium 132 L Potassium 5.7 H Chloride 102 Carbon Dioxide 23 BUN 34 H Creatinine 3.50 H Estimated GFR 21 L BUN/Creatinine Ratio 9.7 Glucose 244 H Lactate Calcium 9.1 Total Bilirubin 1.3 AST 32 ALT 34 Alkaline Phosphatase 112 Total Protein 8.0 Albumin 4.4 Globulin 3.6 Albumin/Globulin Ratio 1.2 Lipase 41 Procalcitonin 0.56 H Urine RBC Urine WBC Amorphous Sediment Urine Bacteria Granular Casts Micro UA Comment Ur Random Sodium Urine Creatinine Ketones SARS-CoV-2 (PCR) Influenza A (RT-PCR) Influenza B (RT-PCR) RSV (PCR) 10/11/22 10/11/22 10/11/22 20:20 20:20 21:55 WBC RBC Hgb Hct MCV MCH MCHC RDW Plt Count Neut % (Auto) Lymph % (Auto) [place] % (Auto) Eos % (Auto) Baso % (Auto) Neut # (Auto) Lymph # (Auto) [place] # (Auto) Eos # (Auto) Baso # (Auto) PT INR APTT Sodium Potassium Chloride Carbon Dioxide BUN Creatinine Estimated GFR BUN/Creatinine Ratio Glucose Lactate 1.1 Calcium Total Bilirubin AST ALT Alkaline Phosphatase Total Protein Albumin Globulin Albumin/Globulin Ratio Lipase Procalcitonin Urine RBC Urine WBC Amorphous Sediment Urine Bacteria Granular Casts Micro UA Comment Ur Random Sodium Urine Creatinine Ketones 1.54 H SARS-CoV-2 (PCR) Positive H Influenza A (RT-PCR) Flu a negative Influenza B (RT-PCR) Flu b negative RSV (PCR) Negative 10/11/22 10/11/22 10/12/22 22:42 22:42 01:18 WBC RBC Hgb Hct MCV MCH MCHC RDW Plt Count Neut % (Auto) Lymph % (Auto) [place] % (Auto) Eos % (Auto) Baso % (Auto) Neut # (Auto) Lymph # (Auto) [place] # (Auto) Eos # (Auto) Baso # (Auto) PT INR APTT Sodium 134 L Potassium 5.3 H Chloride 103 Carbon Dioxide 22 BUN 34 H Creatinine 3.31 H Estimated GFR 22 L BUN/Creatinine Ratio 10.3 Glucose 253 H Lactate Calcium 8.3 L Total Bilirubin AST ALT Alkaline Phosphatase Total Protein Albumin Globulin Albumin/Globulin Ratio Lipase Procalcitonin Urine RBC None seen Urine WBC None seen Amorphous Sediment 1+ Urine Bacteria None seen Granular Casts 1-5/lpf Micro UA Comment * Ur Random Sodium 29 L Urine Creatinine 230.4 Ketones SARS-CoV-2 (PCR) Influenza A (RT-PCR) Influenza B (RT-PCR) RSV (PCR) Assessment & Plan Assessment & Plan narrative: 1. Sepsis secondary to possible appendicitis and COVID -patient presented with fevers and tachycardia -procalcitonin is elevated -organ dysfunction with JENNIFER -chest xray negative for pneumonia -CT abdomen showed concern for appendicitis -not requiring oxygen -for now no indication for remdesivir or steroids to treat covid as he is not hypoxic -was ordered for 30cc/kg iv fluids in ED with improvement in heart rate and mild improvement in kidney function -keep npo for possible surgery -ordered for IV zosyn -general surgery consulted 2. JENNIFER on CKD stage 4 with mild hyperkalemia -last creatinine was 2.4 -patient states his gfr is in the 20s -creatinine on admission is 3.5, consistent with JENNIFER on CKD stage 4 -imaging with no evidence of obstruction -suspect sepsis leading to hypovolemia as cause of elevated creatinine -monitor urine output closely -monitor potassium closely -no indication for dialysis currently 3. Type 1 Diabetes on insulin pump -per hospital policy patient can not continue insulin pump -he is agreeable to stop -he uses 2.5u/hr 16 hrs a day, and 1.3u/hr 8 hrs a day which is approximately 50u daily -ordered 50u lantus along with prandial insulin and sliding scale 4. GERD -ordered iv protonix 5. Hypertension -hold losartan due to jennifer and hyperkalemia -continue amlodipine -for now have added hydralazine I have obtained history and discussed medical plan with the patient. I have discussed plan of care with ED physician and bedside nurse. I have reviewed the labs and chest xray and CT imaging. CODE: Full Proxy: Dee Gerry, mother Time Spent With Patient Critical Care time: I spent a total of [] minutes of critical care time on this patient's care today; this time is exclusive of procedural time. Quality [facility] - Meds 'Current medications' to include all prescriptions, [id number] products, herbals, cannabis/cannabidiol products, and vitamin/mineral/dietary (nutritional) supplements. I have utilized all available resources to obtain, update, or review the patient?s current medications. [If Yes, STOP here]: Yes
[2022-10-12] MEDS: PIPERACILLIN/TAZO 4.5 GM in SODIUM CHLORIDE 0.9% 100 ML IV (05:48)
[2022-10-12] MEDS: HYDRALAZINE 10 MG TABLET PO (05:55)
[2022-10-12 06:25] LABS: Hematocrit 35.2 % (41-53); Hemoglobin 12.3 g/dL (13.5-17.5); Mean Corpuscular Volume 85.8 fL (80-100); Platelet Count 104 X10^3/uL (150-400); White Blood Cell Count 4.1 X10^3/uL (4.5-11.0)
[2022-10-12 06:27] LABS: Add Manual Diff / Slide Review YES
[2022-10-12 06:31] LABS: BUN Creatinine Ratio 11.3 (6-22); Blood Urea Nitrogen 36 mg/dL (9-20); Calcium 7.8 mg/dL (8.4-10.2); Carbon Dioxide 19 mmol/L (22-32); Chloride 103 mmol/L (98-107); Estimated Glomerular Filt Rate 23 mL/min (>60); Glucose 322 mg/dL (70-100); HEMOLYSIS < 15 (0-50); Sodium 132 mmol/L (137-145)
[2022-10-12 06:32] LABS: Potassium 5.8 mmol/L (3.4-5.1)
[2022-10-12 07:15] LABS: Neutrophils Absolute Manual 3198 /uL (3000-5900); Total Cells Counted 100
[2022-10-12 07:17] LABS: RBC Morphology Normal Morphology
--- NOTE | 2022-10-12 08:08 | PC.NURSE ---
checked on patient in room for morning medications. pt did not have pt bracelet on. patient name and birthdate verified and bracelet placed on patient. plan of action for giving insulin gone over. morning glucose rechecked. pt is asking about medications to help with the acid reflux he is feeling. describes burping up acid and his throat being sore. not nausea but feels like this is how he felt before throwing up last night. pt states antinausea medications from earlier did help.
[2022-10-12] MEDS: PANTOPRAZOLE 40 MG VIAL IV (08:28)
[2022-10-12] MEDS: HEPARIN 5,000 UNIT/ML VIAL 5000 UNIT SUBCUT ×2 (08:29→20:36)
[2022-10-12] MEDS: INSULIN LISPRO 100 UNIT/ML 3ML VIAL SUBCUT ×5 (08:32→17:02)
[2022-10-12] MEDS: AMLODIPINE 5 MG TABLET PO (08:33)
[2022-10-12] MEDS: PIPERACILLIN/TAZO 3.375 GM in SODIUM CHLORIDE 0.9% 100 ML IV ×2 (09:47→18:58)
--- NOTE | 2022-10-12 12:09 | PC.NURSE ---
Called pharmacy. Pharmacy and provider made aware patient is NPO. This RN confirmed insulin dose per MAR and OKayed by pharmacy to give per MAR>.
[2022-10-12] MEDS: ACETAMINOPHEN 325 MG TABLET 650 MG PO ×2 (12:11→20:36)
--- NOTE | 2022-10-12 12:22 | PC.NURSE ---
Pt reports allergies to all opioids. Records updated.
--- NOTE | 2022-10-12 14:11 | P.CONS_ITS ---
History of Present Illness Consult details Date Patient Seen: 10/12/22 Time Patient Seen: 14:11 Chief complaint: acid reflux flare, diabetic, sugers dropping, vomi Narrative: Austin is a 47-year-old man with type 1 diabetes and chronic kidney disease who thought he was having an episode of acid reflux with heartburn and throat clearing yesterday and also noted some diffuse abdominal pain. Came to ER and was found to be COVID positive and a CT showed a larger than normal appendix. Meds Home Medications and Allergies Home Medications Medication Instructions Recorded Confirmed Type losartan 50 mg tablet 50 mg PO DAILY Hypertension ##0 06/03/18 04/21/19 History albuterol sulfate 90 mcg/actuation 2 puff inhalation Q6H PRN 04/21/19 04/21/19 History aerosol inhaler (Ventolin HFA) Shortness Of Breath Or Wheezing insulin lispro 100 unit/mL 2 unit continuous subcutaneous 04/21/19 04/21/19 History subcutaneous solution (Humalog infusion DAILY U-100 Insulin) omeprazole 20 mg capsule,delayed 20 mg PO DAILY PRN acid reflux #30 04/21/19 Rx release caps ondansetron 4 mg disintegrating 4 mg PO Q8H PRN nausea and 04/21/19 Rx tablet vomiting #10 tabs Allergies Allergy/AdvReac Type Severity Reaction Status Date / Time ketamine Allergy Unknown Verified 04/21/19 16:53 Opioids - Morphine Analogues AdvReac Severe Difficulty Verified 10/12/22 12:24 Breathing fentanyl AdvReac Intermediate Nausea Verified 06/03/18 15:30 Exam Vital Signs (past 8 hours): - 10/12/22 06:15 10/12/22 06:42 10/12/22 06:44 Temperature Pulse Rate 99 H 107 H 107 H Respiratory Rate 17 21 Blood Pressure Blood Pressure [Left Arm] Pulse Oximetry 96 97 97 Oxygen Delivery Method 10/12/22 06:44 10/12/22 06:45 10/12/22 07:00 Temperature Pulse Rate 109 H 101 H Respiratory Rate 26 H 19 Blood Pressure 191/95 H Blood Pressure [Left Arm] Pulse Oximetry 97 95 Oxygen Delivery Method 10/12/22 07:15 10/12/22 07:30 10/12/22 07:45 Temperature Pulse Rate 100 H 101 H 104 H Respiratory Rate 21 22 21 Blood Pressure Blood Pressure [Left Arm] Pulse Oximetry 95 93 94 Oxygen Delivery Method 10/12/22 08:00 10/12/22 08:15 10/12/22 08:29 Temperature Pulse Rate 101 H 102 H 100 H Respiratory Rate 23 21 23 Blood Pressure Blood Pressure [Left Arm] Pulse Oximetry 93 95 95 Oxygen Delivery Method 10/12/22 08:29 10/12/22 08:30 10/12/22 08:45 Temperature Pulse Rate 101 H 100 H Respiratory Rate 19 23 Blood Pressure 164/76 H Blood Pressure [Left Arm] Pulse Oximetry 95 95 Oxygen Delivery Method 10/12/22 09:00 10/12/22 12:21 Temperature 98.3 F Pulse Rate 96 H 98 H Respiratory Rate 22 18 Blood Pressure Blood Pressure [Left Arm] 164/85 H Pulse Oximetry 94 96 Oxygen Delivery Method Room Air Oxygen Delivery Method Room Air Narrative Exam Narrative: Abdomen is soft and nontender including at McBurney's point Objective Labs 10/12/22 06:10 10/12/22 06:10 Labs: Laboratory Results - last 24 hr 10/11/22 10/11/22 10/11/22 20:20 20:20 20:20 WBC 4.1 L RBC 4.94 Hgb 14.6 Hct 42.3 MCV 85.7 MCH 29.5 MCHC 34.4 RDW 13.4 Plt Count 135 L Neut % (Auto) 75.7 H Lymph % (Auto) 8.4 L [place] % (Auto) 15.1 H Eos % (Auto) 0.1 L Baso % (Auto) 0.7 Neut # (Auto) 3100 Lymph # (Auto) 300 L [place] # (Auto) 600 Eos # (Auto) 0 Baso # (Auto) 0 Total Counted Seg Neutrophils % Band Neutrophils % Lymphocytes % (Manual) Monocytes % (Manual) Basophils % (Manual) Neutrophils # (Manual) RBC Morphology PT 13.2 H INR 1.2 APTT 28 Sodium 132 L Potassium 5.7 H Chloride 102 Carbon Dioxide 23 BUN 34 H Creatinine 3.50 H Estimated GFR 21 L BUN/Creatinine Ratio 9.7 Glucose 244 H Lactate Calcium 9.1 Total Bilirubin 1.3 AST 32 ALT 34 Alkaline Phosphatase 112 Total Protein 8.0 Albumin 4.4 Globulin 3.6 Albumin/Globulin Ratio 1.2 Lipase 41 Procalcitonin 0.56 H Urine RBC Urine WBC Amorphous Sediment Urine Bacteria Granular Casts Micro UA Comment Ur Random Sodium Urine Creatinine Ketones SARS-CoV-2 (PCR) Influenza A (RT-PCR) Influenza B (RT-PCR) RSV (PCR) 10/11/22 10/11/22 10/11/22 20:20 20:20 21:55 WBC RBC Hgb Hct MCV MCH MCHC RDW Plt Count Neut % (Auto) Lymph % (Auto) [place] % (Auto) Eos % (Auto) Baso % (Auto) Neut # (Auto) Lymph # (Auto) [place] # (Auto) Eos # (Auto) Baso # (Auto) Total Counted Seg Neutrophils % Band Neutrophils % Lymphocytes % (Manual) Monocytes % (Manual) Basophils % (Manual) Neutrophils # (Manual) RBC Morphology PT INR APTT Sodium Potassium Chloride Carbon Dioxide BUN Creatinine Estimated GFR BUN/Creatinine Ratio Glucose Lactate 1.1 Calcium Total Bilirubin AST ALT Alkaline Phosphatase Total Protein Albumin Globulin Albumin/Globulin Ratio Lipase Procalcitonin Urine RBC Urine WBC Amorphous Sediment Urine Bacteria Granular Casts Micro UA Comment Ur Random Sodium Urine Creatinine Ketones 1.54 H SARS-CoV-2 (PCR) Positive H Influenza A (RT-PCR) Flu a negative Influenza B (RT-PCR) Flu b negative RSV (PCR) Negative 10/11/22 10/11/22 10/12/22 22:42 22:42 01:18 WBC RBC Hgb Hct MCV MCH MCHC RDW Plt Count Neut % (Auto) Lymph % (Auto) [place] % (Auto) Eos % (Auto) Baso % (Auto) Neut # (Auto) Lymph # (Auto) [place] # (Auto) Eos # (Auto) Baso # (Auto) Total Counted Seg Neutrophils % Band Neutrophils % Lymphocytes % (Manual) Monocytes % (Manual) Basophils % (Manual) Neutrophils # (Manual) RBC Morphology PT INR APTT Sodium 134 L Potassium 5.3 H Chloride 103 Carbon Dioxide 22 BUN 34 H Creatinine 3.31 H Estimated GFR 22 L BUN/Creatinine Ratio 10.3 Glucose 253 H Lactate Calcium 8.3 L Total Bilirubin AST ALT Alkaline Phosphatase Total Protein Albumin Globulin Albumin/Globulin Ratio Lipase Procalcitonin Urine RBC None seen Urine WBC None seen Amorphous Sediment 1+ Urine Bacteria None seen Granular Casts 1-5/lpf Micro UA Comment * Ur Random Sodium 29 L Urine Creatinine 230.4 Ketones SARS-CoV-2 (PCR) Influenza A (RT-PCR) Influenza B (RT-PCR) RSV (PCR) 10/12/22 10/12/22 06:10 06:10 WBC 4.1 L RBC 4.10 L Hgb 12.3 L Hct 35.2 L MCV 85.8 MCH 30.0 MCHC 35.0 RDW 13.0 Plt Count 104 L Neut % (Auto) Not Reportable Lymph % (Auto) Not Reportable [place] % (Auto) Not Reportable Eos % (Auto) Not Reportable Baso % (Auto) Not Reportable Neut # (Auto) Lymph # (Auto) Not Reportable [place] # (Auto) Not Reportable Eos # (Auto) Baso # (Auto) Not Reportable Total Counted 100 Seg Neutrophils % 76.0 H Band Neutrophils % 2.0 L Lymphocytes % (Manual) 14.0 L Monocytes % (Manual) 7.0 Basophils % (Manual) 1.0 Neutrophils # (Manual) 3198 RBC Morphology Normal morphology PT INR APTT Sodium 132 L Potassium 5.8 H Chloride 103 Carbon Dioxide 19 L BUN 36 H Creatinine 3.20 H Estimated GFR 23 L BUN/Creatinine Ratio 11.3 Glucose 322 H Lactate Calcium 7.8 L Total Bilirubin AST ALT Alkaline Phosphatase Total Protein Albumin Globulin Albumin/Globulin Ratio Lipase Procalcitonin Urine RBC Urine WBC Amorphous Sediment Urine Bacteria Granular Casts Micro UA Comment Ur Random Sodium Urine Creatinine Ketones SARS-CoV-2 (PCR) Influenza A (RT-PCR) Influenza B (RT-PCR) RSV (PCR) COUNT INCLUDES [facility] Medical History Hypertension Insulin dependent diabetes mellitus Neuropathy Retinopathy due to secondary diabetes Family History Grandfather Heart disease Heart attack Social History household members: none Tobacco & Substance Use Smoking Status: Never smoker Assessment & Plan Assessment and plan (1) COVID-19: Status: Acute Plan No reason to suspect acute appendicitis. Recommend treatment for COVID conditions but no need for surgical appendicitis Time Spent With Patient Critical Care time: I spent a total of [] minutes of critical care time on this patient's care today; this time is exclusive of procedural time.
[2022-10-12 18:40] LABS: BUN Creatinine Ratio 12.1 (6-22); Blood Urea Nitrogen 42 mg/dL (9-20); Calcium 8.2 mg/dL (8.4-10.2); Carbon Dioxide 22 mmol/L (22-32); Chloride 104 mmol/L (98-107); Estimated Glomerular Filt Rate 21 mL/min (>60); Glucose 178 mg/dL (70-100); HEMOLYSIS < 15 (0-50); Potassium 4.5 mmol/L (3.4-5.1); Sodium 135 mmol/L (137-145)
[2022-10-12] MEDS: BENZOCAINE/MENTHOL 1 LOZ PKT 1 EACH PO (20:37)
[2022-10-12] MEDS: ALBUTEROL 2.5 MG/3 ML NEB (ADULT) INH (22:56)
[2022-10-13] VITALS (10 sets, daily range): BP systolic 133–149; BP diastolic 72–89; PULSE 80–89; RESP 16–19; TEMP 36.5–37; O2SAT 96–98
[2022-10-13] MEDS: PIPERACILLIN/TAZO 3.375 GM in SODIUM CHLORIDE 0.9% 100 ML IV ×2 (01:30→08:43)
[2022-10-13] MEDS: ALBUTEROL 2.5 MG/3 ML NEB (ADULT) INH (04:44)
[2022-10-13] MEDS: INSULIN LISPRO 100 UNIT/ML 3ML VIAL SUBCUT ×7 (08:35→20:40)
[2022-10-13] MEDS: INSULIN GLARGINE 100 UNIT/ML 3ML PEN 50 UNIT SUBCUT (08:36)
[2022-10-13] MEDS: HEPARIN 5,000 UNIT/ML VIAL 5000 UNIT SUBCUT ×2 (08:41→20:20)
[2022-10-13 09:12] LABS: Add Manual Diff / Slide Review NO; Basophils Absolute Auto 0 /uL (0-100); Basophils Percent Auto 0.9 % (0-2); Eosinophils Absolute Auto 0 /uL (0-450); Eosinophils Percent Auto 0.1 % (2-4); Hematocrit 33.3 % (41-53); Hemoglobin 11.8 g/dL (13.5-17.5); Lymphocytes Absolute Auto 900 /uL (1100-4500); Lymphocytes Percent Auto 30.9 % (25-40); Mean Corpuscular HGB Conc 35.6 % (30-36); Mean Corpuscular Hemoglobin 30.1 PG (26-34); Mean Corpuscular Volume 84.8 fL (80-100); Monocytes Absolute Auto 400 /uL (0-900); Monocytes Percent Auto 16.1 % (3-14); Neutrophils Absolute Auto 1500 /uL (1500-7000); Platelet Count 95 X10^3/uL (150-400); Red Blood Cell Count 3.93 X10^6/uL (4.5-5.9); White Blood Cell Count 2.8 X10^3/uL (4.5-11.0)
[2022-10-13 09:27] LABS: Alanine Aminotransferase 33 IU/L (<50); Albumin Globulin Ratio 1.1 (1.0-2.8); Alkaline Phosphatase 77 U/L (38-126); Aspartate Aminotransferase 40 IU/L (17-59); Bilirubin Total 0.7 mg/dL (0.2-1.3); Blood Urea Nitrogen 40 mg/dL (9-20); Calcium 7.6 mg/dL (8.4-10.2); Carbon Dioxide 19 mmol/L (22-32); Chloride 99 mmol/L (98-107); Estimated Glomerular Filt Rate 22 mL/min (>60); Globulin 2.7 g/dL (1.7-4.1); Glucose 313 mg/dL (70-100); HEMOLYSIS < 15 (0-50); Magnesium 1.7 mg/dL (1.6-2.3); Potassium 4.5 mmol/L (3.4-5.1); Sodium 131 mmol/L (137-145); Total Protein 5.7 g/dL (6.3-8.2)
--- NOTE | 2022-10-13 15:07 | PC.NURSE ---
Day shift: Pt check done. Pt has not been off unit. Charted on wrong Pt.
--- NOTE | 2022-10-13 15:41 | P.PN_ITS ---
Subjective Subjective Interval history: 47 M admitted with JENNIFER, sepsis due to COVID with possible appendicitis. General surgery did not feel this to be consistent with appendicitis. Has some continued vague abdominal pain today, tolerating a diet well however leukopenia slightly worsened. Glucoses markedly elevated, increased lantus and mealtime dosing of insulin along with sliding scale increase. Exam Vital Signs (past 8 hours): - 10/13/22 08:13 10/13/22 08:13 10/13/22 08:03 Temperature 98.6 F Pulse Rate 89 Respiratory Rate 18 Blood Pressure 133/80 Pulse Oximetry 98 98 Oxygen Delivery Method Room Air Room Air Oxygen Flow Rate 0 10/13/22 12:10 Temperature Pulse Rate Respiratory Rate Blood Pressure Pulse Oximetry 97 Oxygen Delivery Method Room Air Oxygen Flow Rate Oxygen Delivery Method Room Air Oxygen Flow Rate 0 Narrative Exam Narrative: GEN: no acute distress. HEENT: moist mucous membranes, PERRL NECK: trachea midline, no JVD PULM: clear bilaterally, no wheezes, rhonchi, rales ABD: soft, mild tenderness, no rebound guarding CV: tachycardic, no murmurs EXT: warm and well perfused with no edema NEURO: awake, alert, oriented with no focal deficits Objective Labs 10/13/22 08:50 10/13/22 08:50 Labs: Laboratory Results - last 24 hr 10/12/22 10/13/22 10/13/22 18:05 08:50 08:50 WBC 2.8 L RBC 3.93 L Hgb 11.8 L Hct 33.3 L MCV 84.8 MCH 30.1 MCHC 35.6 RDW 13.0 Plt Count 95 L Neut % (Auto) 52.0 D Lymph % (Auto) 30.9 D [place] % (Auto) 16.1 H Eos % (Auto) 0.1 L Baso % (Auto) 0.9 Neut # (Auto) 1500 Lymph # (Auto) 900 L [place] # (Auto) 400 Eos # (Auto) 0 Baso # (Auto) 0 Sodium 135 L 131 L Potassium 4.5 D 4.5 Chloride 104 99 Carbon Dioxide 22 19 L BUN 42 H 40 H Creatinine 3.47 H 3.32 H Estimated GFR 21 L 22 L BUN/Creatinine Ratio 12.1 12.0 Glucose 178 H D 313 H D Calcium 8.2 L 7.6 L Magnesium 1.7 Total Bilirubin 0.7 AST 40 ALT 33 Alkaline Phosphatase 77 Total Protein 5.7 L Albumin 3.0 L Globulin 2.7 Albumin/Globulin Ratio 1.1 PENDING SALE TO [facility] Medical History Hypertension Insulin dependent diabetes mellitus Neuropathy Retinopathy due to secondary diabetes Family History Grandfather Heart disease Heart attack Social History household members: none Smoking Status: Never smoker alcohol intake: current Assessment & Plan Assessment & Plan narrative: 1. Sepsis secondary to possible appendicitis and COVID -patient presented with fevers and tachycardia -procalcitonin is elevated, along with left shift on CBC -organ dysfunction with JENNIFER -chest xray negative for pneumonia -CT abdomen showed concern for appendicitis, general surgery does not think he has appendicitis. Labs more consistent with bacterial rather than viral infection, will continue antibiotics for now. -not requiring oxygen -for now no indication for remdesivir or steroids to treat covid as he is not hypoxic -was ordered for 30cc/kg iv fluids in ED with improvement in heart rate and mild improvement in kidney function, though kidney function has largely been stable over the course of his admission thus far. 2. JENNIFER on CKD stage 4 with mild hyperkalemia -last creatinine was 2.4 -patient states his gfr is in the 20s usually, where he is now. -creatinine on admission is 3.5, consistent with JENNIFER on CKD stage 4 though unclear if this is his new baseline given stability here. -imaging with no evidence of obstruction -suspect sepsis leading to hypovolemia as cause of elevated creatinine -monitor urine output closely -monitor potassium closely -no indication for dialysis currently 3. Type 1 Diabetes on insulin pump -per hospital policy patient can not continue insulin pump -he is agreeable to stop -he uses 2.5u/hr 16 hrs a day, and 1.3u/hr 8 hrs a day which is approximately 50u daily -ordered 50u lantus along with prandial insulin and sliding scale initially. Will increase to 60 U lantus, 6 U TID AC, and increase sliding scale to high dose. 4. GERD -ordered iv protonix 5. Hypertension -hold losartan due to jennifer and hyperkalemia -continue amlodipine, BP okay just on amlodipine today. CODE: Full Proxy: Dee Garrett, mother COVID-19 COVID-19 status: Positive Time Spent With Patient Critical Care time: I spent a total of [] minutes of critical care time on this patient's care today; this time is exclusive of procedural time. Quality VTE Deep Vein Thrombosis/Pulmonary Embolism Present on Admission: No
[2022-10-13] MEDS: ACETAMINOPHEN 325 MG TABLET 650 MG PO (16:43)
[2022-10-13] MEDS: AMOXICILLIN/CLAV 875/125 MG 1 TAB PO (20:19)
[2022-10-13] MEDS: BENZOCAINE/MENTHOL 1 LOZ PKT 1 EACH PO (20:19)
[2022-10-13] MEDS: SODIUM CHLORIDE 0.9% FLUSH 10 ML IV (20:20)
[2022-10-14] VITALS (9 sets, daily range): BP systolic 155–171; BP diastolic 89–94; PULSE 76–82; RESP 16–18; TEMP 36.4–36.9; O2SAT 96–98
[2022-10-14 05:48] LABS: Alanine Aminotransferase 41 IU/L (<50); Albumin 3.3 g/dL (3.5-5.0); Albumin Globulin Ratio 1.1 (1.0-2.8); Alkaline Phosphatase 91 U/L (38-126); Aspartate Aminotransferase 57 IU/L (17-59); BUN Creatinine Ratio 11.8 (6-22); Bilirubin Total 0.6 mg/dL (0.2-1.3); Blood Urea Nitrogen 34 mg/dL (9-20); Calcium 8.3 mg/dL (8.4-10.2); Carbon Dioxide 22 mmol/L (22-32); Chloride 104 mmol/L (98-107); Estimated Glomerular Filt Rate 26 mL/min (>60); Globulin 3.1 g/dL (1.7-4.1); Glucose 176 mg/dL (70-100); HEMOLYSIS 17 (0-50); Magnesium 1.7 mg/dL (1.6-2.3); Potassium 4.2 mmol/L (3.4-5.1); Sodium 135 mmol/L (137-145); Total Protein 6.4 g/dL (6.3-8.2)
[2022-10-14 05:53] LABS: Add Manual Diff / Slide Review NO; Basophils Absolute Auto 0 /uL (0-100); Eosinophils Absolute Auto 0 /uL (0-450); Eosinophils Percent Auto 0.3 % (2-4); Hematocrit 36.8 % (41-53); Lymphocytes Absolute Auto 1200 /uL (1100-4500); Lymphocytes Percent Auto 35.5 % (25-40); Mean Corpuscular HGB Conc 35.4 % (30-36); Mean Corpuscular Hemoglobin 29.6 PG (26-34); Mean Corpuscular Volume 83.7 fL (80-100); Monocytes Absolute Auto 300 /uL (0-900); Monocytes Percent Auto 10.5 % (3-14); Neutrophils Absolute Auto 1700 /uL (1500-7000); Neutrophils Percent Auto 52.7 % (50-75); Platelet Count 103 X10^3/uL (150-400); Red Cell Distribution Width 13.3 % (11.6-14.8); White Blood Cell Count 3.3 X10^3/uL (4.5-11.0)
[2022-10-14] MEDS: INSULIN GLARGINE 100 UNIT/ML 3ML PEN 50 UNIT SUBCUT (08:06)
[2022-10-14] MEDS: INSULIN LISPRO 100 UNIT/ML 3ML VIAL SUBCUT ×2 (08:07)
[2022-10-14] MEDS: ONDANSETRON 4 MG ODT SL (08:13)
[2022-10-14] MEDS: SODIUM CHLORIDE 0.9% FLUSH 10 ML IV ×2 (08:13→21:08)
[2022-10-14] MEDS: MAGNESIUM CHLORIDE 64 MG TABLET 128 MG PO (11:20)
--- NOTE | 2022-10-14 14:13 | P.PN_ITS ---
Subjective Subjective Interval history: 47 M admitted with JENNIFER, sepsis due to COVID with possible appendicitis. General surgery did not feel this to be consistent with appendicitis. Has some continued vague abdominal pain today, tolerating a diet well however leukopenia slightly worsened. Glucoses markedly elevated, increased lantus and mealtime dosing of insulin along with sliding scale increase. Exam Vital Signs (past 8 hours): - 10/14/22 07:51 10/14/22 10:24 10/14/22 11:53 Temperature 98.1 F Pulse Rate 80 Respiratory Rate 16 Blood Pressure 155/89 H Pulse Oximetry 97 97 97 Oxygen Delivery Method Room Air Room Air Oxygen Flow Rate 0 Oxygen Delivery Method Room Air Oxygen Flow Rate 0 Narrative Exam Narrative: GEN: no acute distress. HEENT: moist mucous membranes, PERRL NECK: trachea midline, no JVD PULM: clear bilaterally, no wheezes, rhonchi, rales ABD: soft, mild tenderness, no rebound guarding CV: tachycardic, no murmurs EXT: warm and well perfused with no edema NEURO: awake, alert, oriented with no focal deficits Objective Labs 10/14/22 04:45 10/14/22 04:45 Labs: Laboratory Results - last 24 hr 10/14/22 10/14/22 04:45 04:45 WBC 3.3 L RBC 4.40 L Hgb 13.0 L Hct 36.8 L MCV 83.7 MCH 29.6 MCHC 35.4 RDW 13.3 Plt Count 103 L Neut % (Auto) 52.7 Lymph % (Auto) 35.5 [place] % (Auto) 10.5 Eos % (Auto) 0.3 L Baso % (Auto) 1.0 Neut # (Auto) 1700 Lymph # (Auto) 1200 [place] # (Auto) 300 Eos # (Auto) 0 Baso # (Auto) 0 Sodium 135 L Potassium 4.2 Chloride 104 Carbon Dioxide 22 BUN 34 H Creatinine 2.89 H Estimated GFR 26 L BUN/Creatinine Ratio 11.8 Glucose 176 H D Calcium 8.3 L Magnesium 1.7 Total Bilirubin 0.6 AST 57 ALT 41 Alkaline Phosphatase 91 Total Protein 6.4 Albumin 3.3 L Globulin 3.1 Albumin/Globulin Ratio 1.1 [facility] Medical History Hypertension Insulin dependent diabetes mellitus Neuropathy Retinopathy due to secondary diabetes Family History Grandfather Heart disease Heart attack Social History household members: none Smoking Status: Never smoker alcohol intake: current Assessment & Plan Assessment & Plan narrative: 1. Sepsis secondary to possible appendicitis and COVID - however blood and urine cultures negtive -patient presented with fevers and tachycardia -procalcitonin is elevated, along with left shift on CBC - will follow tomorrow -organ dysfunction with JENNIFER - still dysfunctional - follow tomorrow -chest xray negative for pneumonia -CT abdomen showed concern for appendicitis, general surgery does not think he has appendicitis. Labs more consistent with bacterial rather than viral infection, will continue antibiotics for now as oral Amox/clav. -not requiring oxygen -for now no indication for remdesivir or steroids to treat covid as he is not hypoxic -was ordered for 30cc/kg iv fluids in ED with improvement in heart rate and mild improvement in kidney function, though kidney function has largely been stable over the course of his admission thus far. 2. JENNIFER on CKD stage 4 with mild hyperkalemia -last creatinine was 2.4 prior to admit... now 2.89, improving from yesterday which was over 3 -patient states his gfr is in the 20s usually, where he is now at 26 -creatinine on admission is 3.5, consistent with JENNIFER on CKD stage 4 though unclear if this is his new baseline given stability here. -imaging with no evidence of obstruction -suspect sepsis leading to hypovolemia as cause of elevated creatinine -monitor urine output closely -monitor potassium closely -no indication for dialysis currently 3. Type 1 Diabetes on insulin pump -per hospital policy patient can not continue insulin pump -he is agreeable to stop -he uses 2.5u/hr 16 hrs a day, and 1.3u/hr 8 hrs a day which is approximately 50u daily -ordered increase to 60u lantus along with prandial insulin and sliding scale initially. Will increase to 60 U lantus, 6 U TID AC, and increase sliding scale to high dose. 4. GERD -ordered iv protonix 5. Hypertension -hold losartan due to jennifer and hyperkalemia -continue amlodipine, BP okay just on amlodipine today. Slight high, follow. 6. Nausea - secondary to Amox/clav , treat with haldol 1 mg TID. need to have something he can be discharged on that works. CODE: Full Proxy: Dee Garrett, mother COVID-19 COVID-19 status: Positive Time Spent With Patient Critical Care time: I spent a total of [] minutes of critical care time on this patient's care today; this time is exclusive of procedural time. Quality VTE Deep Vein Thrombosis/Pulmonary Embolism Present on Admission: No
--- NOTE | 2022-10-14 14:38 | CM.DANOTE ---
Initial Discharge Assessment Note: Case reviewed, met with patient. Introduced self and role. Payer: [place] and self pay PCP: Thompson Valadez 47 year old diabetic type I male admitted 10/12/22 with sepsis due to Covid, JENNIFER (CKD4), abdominal pain. Patient lives alone in [place] in an apartment and is mostly independent. He does not drive. He relies on others or Medicaid transport. His family also assists. 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 He is currently unemployed. Plan: When medically cleared, discharge home. Brother to transport. HILARY Discharge Planning/Care Management CM Discharge Assessment Start: 10/14/22 14:36 Freq: Status: Active Protocol: Document 10/14/22 14:36 (Rec: 10/14/22 14:37 [id number]) Discharge Planning Assessment Assigned Metal Slitter Tita Ruelas RN/DCP Advance Directives? No Advance Directives on File No History Provided By Patient,Medical Record Prior Living Arrangements Apartment/Condo Household Members none Type of transporation used prior to Medicaid Transport admit Independent with ADL's Yes Is patient alert and oriented? Yes Caregiver for Another No Barriers to Discharge No Discharge Plan Home Transportation Arrangement Family to provide transportation Additional Comment D/C needs unknown at this time . Review Status In Process Next Review Type Continued Stay Review
[2022-10-14] MEDS: haloperidoL 1 MG TABLET PO (15:07)
[2022-10-14] MEDS: ACETAMINOPHEN 325 MG TABLET 650 MG PO (16:57)
[2022-10-15] VITALS: O2SAT 95
[2022-10-15 04:00] VITALS: O2SAT 95
[2022-10-15 05:02] VITALS: BP 161/88; PULSE 81; RESP 18; TEMP 37.1; O2SAT 95
[2022-10-15 05:37] LABS: Add Manual Diff / Slide Review NO; Basophils Absolute Auto 0 /uL (0-100); Basophils Percent Auto 0.4 % (0-2); Eosinophils Absolute Auto 0 /uL (0-450); Eosinophils Percent Auto 0.5 % (2-4); Hematocrit 38.6 % (41-53); Hemoglobin 13.6 g/dL (13.5-17.5); Lymphocytes Absolute Auto 1200 /uL (1100-4500); Lymphocytes Percent Auto 34.8 % (25-40); Mean Corpuscular HGB Conc 35.2 % (30-36); Mean Corpuscular Hemoglobin 29.5 PG (26-34); Mean Corpuscular Volume 83.8 fL (80-100); Monocytes Absolute Auto 300 /uL (0-900); Monocytes Percent Auto 9.7 % (3-14); Neutrophils Absolute Auto 1900 /uL (1500-7000); Neutrophils Percent Auto 54.6 % (50-75); Platelet Count 101 X10^3/uL (150-400); Red Blood Cell Count 4.61 X10^6/uL (4.5-5.9); Red Cell Distribution Width 13.2 % (11.6-14.8); White Blood Cell Count 3.5 X10^3/uL (4.5-11.0)
[2022-10-15 05:59] LABS: Alanine Aminotransferase 56 IU/L (<50); Albumin 3.3 g/dL (3.5-5.0); Alkaline Phosphatase 127 U/L (38-126); Aspartate Aminotransferase 77 IU/L (17-59); BUN Creatinine Ratio 12.1 (6-22); Bilirubin Total 0.6 mg/dL (0.2-1.3); Blood Urea Nitrogen 31 mg/dL (9-20); Calcium 8.6 mg/dL (8.4-10.2); Carbon Dioxide 24 mmol/L (22-32); Chloride 102 mmol/L (98-107); Estimated Glomerular Filt Rate 30 mL/min (>60); Globulin 3.2 g/dL (1.7-4.1); Glucose 191 mg/dL (70-100); HEMOLYSIS 22 (0-50); Magnesium 1.6 mg/dL (1.6-2.3); Potassium 4.2 mmol/L (3.4-5.1); Sodium 134 mmol/L (137-145); Total Protein 6.5 g/dL (6.3-8.2)
[2022-10-15 06:05] LABS: C-Reactive Protein Quant 1.2 mg/dL (<1.0)
[2022-10-15 06:16] LABS: Procalcitonin 0.87 ng/mL (<0.5)
[2022-10-15 07:39] VITALS: O2SAT 97
[2022-10-15] MEDS: INSULIN LISPRO 100 UNIT/ML 3ML VIAL SUBCUT ×4 (07:51→11:54)
[2022-10-15] MEDS: SODIUM CHLORIDE 0.9% FLUSH 10 ML IV (07:51)
[2022-10-15] MEDS: ACETAMINOPHEN 325 MG TABLET 650 MG PO (07:55)
[2022-10-15 12:02] VITALS: BP 145/93; PULSE 69; RESP 18; TEMP 36.3; O2SAT 97
[2022-10-15] MEDS: MAGNESIUM CHLORIDE 64 MG TABLET 128 MG PO (13:37)
--- NOTE | 2022-10-15 13:45 | P.DS_ITS ---
History of Present Illness History of Present Illness Date Patient Seen: 10/15/22 Time Patient Seen: 13:40 Chief complaint: acid reflux flare, diabetic, sugers dropping, vomi Narrative: Feeling better but refusing to take Amox/clav and Haldol medication. Wants only 1 medication as an antibiotic that works. Discussed with the patient that I could switch it to moxifloxacin 400 mg daily for 7 days and because the patient's renal functions improving I can discharge him as well. Discharge Providers Provider Date of admission: 10/12/22 10:05 Discharge Date: 10/15/22 Primary care physician: Thompson Valadez MD Consults: 10/12/22 05:03 Consult to General Surgery Stat Comment: Consulting Provider: Taras Ocampo Reason for consultation: appendicitis Discharge provider: Mae Castellanos MD Summary Hospital Course Discharge Diagnosis: Concern for Sepsis secondary to possible appendicitis and COVID Clinical concern for appendicitis COVID JENNIFER on CKD stage 4 Hyperkalemia Type 1 Diabetes on insulin pump in the community GERD Hypertension Nausea Neuropathy Retinopathy due to secondary diabetes Hospital Course: Mr. Trevor Garrett is a 47M with PMH Type 1 DM on insulin pump, GERD, CKD stage 4, HTN who presented to the hospital with fevers and abdominal discomfort. He notes he started feeling poorly a couple days ago. He had some abdominal pain in a band around his abdomen. He had some episodes of vomiting and nausea. He thought he was having some reflux as he has had issues with that before. He had a mild cough, and he had fevers as well. He denied shortness of breath or dysuria. He noted over the last year his GFR has been in the 20s. He stated he uses an insulin pump with basal rate of 2.5u/hr from 8a-12a, and 1.3u/hr from 12a-8a. In the ED workup was done, vitals were notable for temp of 102.8, heart rate in the 100s, O2 sat 97% on room air. Labs notable for WBC 4.1, hgb 14.6, plts 135. Na 132, k 5.7, BUN 34, creatinine 3.50. Procal 0.56. He was given IV fluids and his creatinine improved to 3.31, and k improved to 5.3. Anion gap was 7. Urine sodium 29, urine creatinine 230.4. COVID positive. Chest xray showed no acute process. CT scan showed fluid in the esophagus, and gas in a 1cm dilated appendix. He was ordered for antibiotics consisting of IV Zozyn and admitted for further treatment. Per general surgery consult, it was thought that the patient likely did not have appendicitis however due to labs being more consistent with a bacterial rather than a viral a biotics were continued. He was eventually transitioned to a Amox/clav however the amoxicillin and this medication caused him to be nauseous. There is antiemetics were used and Haldol was of benefit however the patient w ould rather have a medication antibiotic that did not require any nausea medication. Patient was discharge on moxifloxacin 400 mg daily for 7 days. Moxifloxacin has been found very beneficial to treat appendicitis with a single oral antibiotic. During the hospital stay patient's renal function was becoming worse. However prior to discharge the patient's renal function was improving consistently with creatinine of 2.57 and GFR of 30 on the day of discharge. Status at Discharge Cognitive/behavioral status at discharge: at baseline, oriented Functional status at discharge: independent ambulation Overall status at discharge: patient is back to baseline Time Spent with Patient Time spent: Greater than 30 minutes Exam Vital Signs (past 8 hours): - 10/15/22 07:39 10/15/22 12:02 10/15/22 12:02 Temperature 97.4 F L Pulse Rate 69 Respiratory Rate 18 Blood Pressure 145/93 H Pulse Oximetry 97 97 97 Oxygen Delivery Method Room Air Room Air Oxygen Flow Rate 0 Oxygen Delivery Method Room Air Oxygen Flow Rate 0 Objective Labs 10/15/22 05:05 10/15/22 05:05 Labs: Laboratory Results - last 24 hr 10/15/22 10/15/22 10/15/22 05:05 05:05 05:05 WBC 3.5 L RBC 4.61 Hgb 13.6 Hct 38.6 L MCV 83.8 MCH 29.5 MCHC 35.2 RDW 13.2 Plt Count 101 L Neut % (Auto) 54.6 Lymph % (Auto) 34.8 [place] % (Auto) 9.7 Eos % (Auto) 0.5 L Baso % (Auto) 0.4 Neut # (Auto) 1900 Lymph # (Auto) 1200 [place] # (Auto) 300 Eos # (Auto) 0 Baso # (Auto) 0 Sodium 134 L Potassium 4.2 Chloride 102 Carbon Dioxide 24 BUN 31 H Creatinine 2.57 H Estimated GFR 30 L BUN/Creatinine Ratio 12.1 Glucose 191 H Calcium 8.6 Magnesium 1.6 Total Bilirubin 0.6 AST 77 H ALT 56 H Alkaline Phosphatase 127 H C-Reactive Protein 1.2 H Total Protein 6.5 Albumin 3.3 L Globulin 3.2 Albumin/Globulin Ratio 1.0 Procalcitonin 0.87 H PFSH Medical History Hypertension Insulin dependent diabetes mellitus Neuropathy Retinopathy due to secondary diabetes Family History Grandfather Heart disease Heart attack Social History household members: none Smoking Status: Never smoker alcohol intake: current Discharge Plan Discharge Plan Patient Disposition: Home Discharge orders & Medications Prescriptions: New moxifloxacin 400 mg tablet 400 mg PO DAILY 7 Days Qty: 7 0RF Continued famotidine 20 mg tablet 20 mg PO DAILY Patient Comments: TAKE 1 TABLET BY MOUTH DAILY amlodipine 5 mg tablet 5 mg PO DAILY losartan 50 mg Tablet 50 mg PO DAILY Qty: 0 insulin lispro [Humalog U-100 Insulin] 100 unit/mL solution 2 unit continuous subcutaneous infusion DAILY albuterol sulfate [Ventolin HFA] 90 mcg/actuation HFA aerosol inhaler 2 puff INHALATION Q6H PRN (Reason: Shortness Of Breath Or Wheezing) Patient Comments: INHALE 2 PUFFS PO Q SIX H PRF SHORTNESS OF BREATH/WHEEZING Follow up/Referrals: Thompson Valadez MD [Primary Care Provider] - Visit Report/Discharge Packet Instructions: Chronic Kidney Disease, DI for Sepsis -- Adult, DI for COVID-19 (Suspected or Confirmed ) Stand Alone Forms: Patient Portal/API, Stroke Signs & Symptoms Discharge Data Primary Care Provider: Thompson Valadez Quality VTE Deep Vein Thrombosis/Pulmonary Embolism Present on Admission: No
--- NOTE | 2022-10-15 14:24 | PC.NURSE ---
Day shift: Paperwork signed and all questions answered. Pt has all personal belongings. Left unit via WC at approx 1425 and his Mother is driving him home. New MD script sent to Pt's pharmacy electronic.
== END 2022-10-15 14:27 | disposition home or self-care (01) | DRG 871 ==
LOC: ED 10-12 02:32 → AC 10-12 05:41
PROVIDERS: Internal Medicine; Neuromusculoskeletal Medicine, Sports Medicine; Admitting Provider Internal Medicine; Emergency Provider Emergency Medicine; PCP Family Medicine; Visit Provider Internal Medicine
DX: A41.9 Sepsis, unspecified organism (principal); U07.1 COVID-19; N17.9 Acute kidney failure, unspecified; N18.4 Chronic kidney disease, stage 4 (severe); K37 Unspecified appendicitis; R65.20 Severe sepsis without septic shock; E10.22 Type 1 diabetes mellitus with diabetic chronic kidney disease; I12.9 Hypertensive chronic kidney disease with stage 1 through stage 4 chronic kidney disease, or unspecified chronic kidney disease; K21.9 Gastro-esophageal reflux disease without esophagitis; E87.5 Hyperkalemia; R11.0 Nausea; Z96.41 Presence of insulin pump (external) (internal)
CPT/HCPCS: 0241U; 36415; 71045; 71250; 74176; 76770; 80048; 80053; 81003; 81015; 82009; 82570; 82962; 83605; 83690; 83735; 84145; 84300; 85007; 85025; 85610; 85730; 86140; 87040; 87086; 93005; 94640; 96365; 96366; 96367; 96372; 96375; 99231; 99284; G0378; C9113; J0696; J1644; J1815; J2405; J2543; J7613

== ENCOUNTER 2023-04-30 00:05 | Emergency (ER) | payer OTHER, SELFPAY ==
[2022-10-12 17:10] VITALS: BMI 27.7
[2023-04-30 00:10] VITALS: BP 165/86; PULSE 92; RESP 17; TEMP 36.3; O2SAT 98; BMI 27.1
[2023-04-30 00:52] LABS: Amorphous Sediment Urine 1+; Bacteria Urine Occasional (0-1); Hyaline Casts Urine 0-1/LPF; RBC Urine 0-1/HPF (0-5/HPF); Renal Epithelial Cells Urine 0-1/HPF (0-1/HPF); Sperm Urine RARE; Squamous Epithelial Cell Urine 0-1 /HPF (0-5/HPF); Transitional Epi Cells Urine 1-5/HPF (0-5/HPF); WBC Urine None Seen (0-5/HPF)
[2023-04-30 00:53] LABS: Granular Casts Urine 1-5/LPF
[2023-04-30 00:54] LABS: Culture Indicated Urine Cult Not Indicated
[2023-04-30 00:56] LABS: Add Manual Diff / Slide Review NO; Basophils Absolute Auto 100 /uL (0-100); Basophils Percent Auto 0.9 % (0-2); Eosinophils Absolute Auto 200 /uL (0-450); Eosinophils Percent Auto 3.2 % (2-4); Hematocrit 42.3 % (41-53); Hemoglobin 14.8 g/dL (13.5-17.5); Lymphocytes Absolute Auto 2500 /uL (1100-4500); Lymphocytes Percent Auto 35.8 % (25-40); Mean Corpuscular Hemoglobin 29.9 PG (26-34); Mean Corpuscular Volume 85.5 fL (80-100); Monocytes Absolute Auto 500 /uL (0-900); Monocytes Percent Auto 6.9 % (3-14); Neutrophils Absolute Auto 3700 /uL (1500-7000); Neutrophils Percent Auto 53.2 % (50-75); Platelet Count 215 X10^3/uL (150-400); Red Blood Cell Count 4.95 X10^6/uL (4.5-5.9); Red Cell Distribution Width 13.3 % (11.6-14.8)
[2023-04-30 01:04] LABS: Alanine Aminotransferase 28 IU/L (<50); Albumin 4.1 g/dL (3.5-5.0); Albumin Globulin Ratio 1.1 (1.0-2.8); Alkaline Phosphatase 83 U/L (38-126); Aspartate Aminotransferase 23 IU/L (17-59); BUN Creatinine Ratio 10.5 (6-22); Bilirubin Total 0.8 mg/dL (0.2-1.3); Blood Urea Nitrogen 31 mg/dL (9-20); Calcium 9.1 mg/dL (8.4-10.2); Carbon Dioxide 22 mmol/L (22-32); Chloride 105 mmol/L (98-107); Estimated Glomerular Filt Rate 26 mL/min (>60); Globulin 3.7 g/dL (1.7-4.1); Glucose 202 mg/dL (70-100); HEMOLYSIS 23 (0-50); Lipase 97 U/L (23-300); Sodium 138 mmol/L (137-145); Total Protein 7.8 g/dL (6.3-8.2)
--- NOTE | 2023-04-30 01:20 | ED_ITS ---
HPI - General Adult General Chief complaint: Abdominal Pain Stated complaint: possible appendicitis Time Seen by Provider: 04/30/23 01:20 Source: patient Mode of arrival: Ambulatory History of Present Illness HPI narrative: 48-year-old type 1 diabetic presents complaining of increasing right lower quadrant pain worsening since 8:00 p.m. last night. In October he was admitted to the hospital with concerns for appendicitis and incidental COVID. Use treated for bacterial infection but it was not eventually felt to be acute appendicitis and he did not undergo any surgical procedures. He states he had a normal bowel movement earlier this evening. He has been slightly nauseated but not vomiting. No cough, palpitations or fevers. He notes that over the last couple of days his blood sugars have been significantly elevated, in the 300 range with increasing need for insulin while simultaneously having minimal appetite and consuming liquids but not eating much food. Related Data Home Medications Medication Instructions Recorded Confirmed losartan 50 mg tablet 50 mg PO DAILY Hypertension ##0 06/03/18 10/12/22 albuterol sulfate 90 mcg/actuation 2 puff inhalation Q6H PRN 04/21/19 10/13/22 aerosol inhaler (Ventolin HFA) Shortness Of Breath Or Wheezing insulin lispro 100 unit/mL 2 unit continuous subcutaneous 04/21/19 10/12/22 subcutaneous solution (Humalog infusion DAILY U-100 Insulin) amlodipine 5 mg tablet 5 mg PO DAILY 10/12/22 10/12/22 famotidine 20 mg tablet 20 mg PO DAILY 10/12/22 10/12/22 Allergies Allergy/AdvReac Type Severity Reaction Status Date / Time ketamine Allergy Unknown Verified 04/21/19 16:53 Opioids - Morphine Analogues AdvReac Severe Difficulty Verified 10/12/22 12:24 Breathing fentanyl AdvReac Intermediate Nausea Verified 06/03/18 15:30 Review of Systems Review of Systems Narrative: Pertinent positive and negative findings as per HPI Patient History Medical History (Updated 04/30/23 @ 03:12 by Stormy Chavez MD) Hypertension Insulin dependent diabetes mellitus Neuropathy Retinopathy due to secondary diabetes Family History Grandfather Heart disease Heart attack Social History household members: none Smoking Status: Never smoker alcohol intake: current Smoking Status: Never smoker alcohol intake frequency: holidays/special occasions only Substance Use Type: does not use Exam Initial Vital Signs Initial Vital Signs: Vital Signs Temperature 97.4 F L 04/30/23 00:10 Pulse Rate 92 H 04/30/23 00:10 Respiratory Rate 17 04/30/23 00:10 Blood Pressure 165/86 H 04/30/23 00:10 Pulse Oximetry 98 04/30/23 00:10 Oxygen Delivery Method Room Air 04/30/23 00:10 General: Healthy appearing, in no acute distress. Able to give a complete and coherent history. Well-nourished well-developed HEENT: Moist mucous membranes, normal sclera with reactive pupils, Neck: No JVD, supple Respiratory: Lungs are clear to auscultation, no wheezing no rales no rhonchi. Full and symmetrical air movement Cardiac: Regular rate and rhythm no murmurs no bruits Abdomen: Soft, mild tenderness in the right lower quadrant without rebound or guarding, good bowel tones, no flank pain Skin: Warm and dry, no rashes Neurologic: Grossly neurologically intact with no obvious asymmetries or abnormalities Extremities: No trauma, well perfused Psych: Cooperative, appropriate insight and affect Course Orders Ordered: ED Orders 04/30/23 00:36 Urine Microscopic Stat 04/30/23 00:45 Complete Blood Count AUTO DIFF Stat Comprehensive Metabolic Panel Stat Lipase Stat 04/30/23 01:29 CT abdomen pelvis wo con Stat Ondansetron HCl (Ondansetron 4 Mg Odt) 4 mg PO NOW PRN PRN Reason: Nausea And Vomiting Ondansetron HCl (Ondansetron 4 Mg/2 Ml Inj) 4 mg IV NOW PRN PRN Reason: Nausea And Vomiting Discontinued Medications Sodium Chloride (Normal Saline 0.9%) 1,000 mls @ 1,000 mls/hr IV BOLUS ONE Stop: 04/30/23 02:30 Last Infusion: 04/30/23 02:28 Dose: 0 mls/hr Documented By: Admin: 04/30/23 01:35 Dose: 1,000 mls/hr Documented By: Vital Signs Vital signs: Vital Signs - 8 hr 04/30/23 00:10 04/30/23 01:37 04/30/23 01:37 Temperature 97.4 F L Pulse Rate 92 H 82 Respiratory Rate 17 Blood Pressure 165/86 H 154/98 H Pulse Oximetry 98 98 Oxygen Delivery Method Room Air 04/30/23 02:00 04/30/23 02:00 Temperature Pulse Rate 76 Respiratory Rate Blood Pressure 136/79 Pulse Oximetry 98 Oxygen Delivery Method Medical Decision Making Lab Data 04/30/23 00:45 04/30/23 00:45 Labs: Lab Results 04/30/23 04/30/23 04/30/23 Range/Units 00:36 00:45 00:45 WBC 7.0 (4.5-11.0) X10^3/uL RBC 4.95 (4.5-5.9) X10^6/uL Hgb 14.8 (13.5-17.5) g/dL Hct 42.3 (41-53) % MCV 85.5 (80-100) fL MCH 29.9 (26-34) PG MCHC 35.0 (30-36) % RDW 13.3 (11.6-14.8) % Plt Count 215 (150-400) X10^3/uL Neut % (Auto) 53.2 (50-75) % Lymph % (Auto) 35.8 (25-40) % [place] % (Auto) 6.9 (3-14) % Eos % (Auto) 3.2 (2-4) % Baso % (Auto) 0.9 (0-2) % Neut # (Auto) 3700 (1341-7371) /uL Lymph # (Auto) 2500 (1431-3994) /uL [place] # (Auto) 500 (0-900) /uL Eos # (Auto) 200 (0-450) /uL Baso # (Auto) 100 (0-100) /uL Sodium 138 (137-145) mmol/L Potassium 4.0 (3.4-5.1) mmol/L Chloride 105 (98-107) mmol/L Carbon Dioxide 22 (22-32) mmol/L BUN 31 H (9-20) mg/dL Creatinine 2.94 H (0.66-1.25) mg/dL Estimated GFR 26 L (>60) mL/min BUN/Creatinine Ratio 10.5 (6-22) Glucose 202 H (70-100) mg/dL Calcium 9.1 (8.4-10.2) mg/dL Total Bilirubin 0.8 (0.2-1.3) mg/dL AST 23 (17-59) IU/L ALT 28 (<50) IU/L Alkaline Phosphatase 83 (38-126) U/L Total Protein 7.8 (6.3-8.2) g/dL Albumin 4.1 (3.5-5.0) g/dL Globulin 3.7 (1.7-4.1) g/dL Albumin/Globulin Ratio 1.1 (1.0-2.8) Lipase 97 (23-300) U/L Urine RBC 0-1/hpf (0-5/HPF) Urine WBC None seen (0-5/HPF) Ur Squamous Epith Cells 0-1 /hpf (0-5/HPF) Ur Transition Epith Cell 1-5/hpf (0-5/HPF) Ur Renal Epithelial Cell 0-1/hpf (0-1/HPF) Amorphous Sediment 1+ Urine Bacteria Occasional (0-1) (None) Hyaline Casts 0-1/lpf (None) Granular Casts 1-5/lpf (None) Urine Sperm Rare Ur Culture Indicated? Cult not indicated Point of Care Testing Glucose POC 192 Urine Dip Bedside Urine Glucose 1000 mg/dl Bedside Urine Bilirubin - Negative Bedside Urine Ketone - Negative Urine Specific [place] 1.025 Bedside Urine Occult Blood ++ Bedside Urine pH 5.5 Bedside Urine Protein +++ 300 Bedside Urine Urobilinogen - Negative Bedside Urine Nitrite - Negative Bedside Urine Leukocytes - Negative Esterase Point of care testing: Point of Care Testing Glucose POC 192 Urine Dip Bedside Urine Glucose 1000 mg/dl Bedside Urine Bilirubin - Negative Bedside Urine Ketone - Negative Urine Specific [place] 1.025 Bedside Urine Occult Blood ++ Bedside Urine pH 5.5 Bedside Urine Protein +++ 300 Bedside Urine Urobilinogen - Negative Bedside Urine Nitrite - Negative Bedside Urine Leukocytes - Negative Esterase MDM Narrative Medical decision making narrative: CC: Increasing right lower quadrant pain with 24-48 hours of increased blood sugars in the type 1 diabetic Complicating co-morbidities: Type 1 diabetes Data collected from: patient, mother Medical records reviewed: Hospitalization in October with COVID and right lower quadrant pain reviewed. Patient describes today's right lower quadrant pain is being significantly more painful and localized than it was with a prior admission Differential considered: Acute appendicitis, diabetic ketoacidosis Exam documented above, pertinent findings include: Lab Test results independently reviewed as above. Pertinent findings: CBC is unremarkable with no leukocytosis Chemistries show chronic stable kidney injury with creatinine at 2.9. Glucoses at 2:02 a.m. remainder of studies are reassuring Anion gap is calculated at 8 Imaging studies independently reviewed: CT scan again shows a mass in the left hepatic lobe of the liver that is minimally changed and does need outpatient follow-up. There is no evidence of intra-abdominal abscess and specifically no acute appendicitis. Treatments: IV Fluids, ondansetron Discussion: 48-year-old type 1 diabetic with increased blood sugars over the last couple of days but no evidence of acute bacterial infection and no evidence of diabetic ketoacidosis, severe constipation or intra-abdominal infection. Certainly does not have a surgical abdomen and there is no evidence of acute appendicitis. Uncertain why he has been feeling unwell but possibility of a v iruses certainly entertained. He is currently without fever or cough. Will discuss ondansetron to have at home to help with nausea but I believe he is safe for discharge home. We will encourage him to continue covering his high blood sugars through his insulin pump. Last can to return if he develops new symptoms. Discharge Plan Departure Patient Disposition: Home Clinical Impression: Chronic hyperglycemia, Abdominal pain, Liver mass, left lobe Instructions: DI for Abdominal Pain-Adult Activity Restrictions/Additional Instructions: Thank you for coming in today I did not find full explanation for why your sugars have been running high nor why you been feeling generally unwell over the last couple of days. Specifically, you do not have DKA, there is no signs of bacterial infection, you do not have appendicitis and no signs of pneumonia. I found no evidence of bladder infection or kidney infection. On your CT scan there is mass in the left lobe of the liver measuring 8 x 7 cm. This was also noted with the CT scan back in October. It is not significantly growing. The radiologist has recommended further evaluation with a liver protocol MRI as an outpatient. Please talk to your primary care doctor about getting this scheduled. This is an incidental finding and is not what is causing your symptoms today At this point I believe it is safe for you to go home. If you develop new findings, different symptoms, feel that you are getting worse it would be appropriate to return to the emergency department Prescriptions: No Action famotidine 20 mg tablet 20 mg PO DAILY Patient Comments: TAKE 1 TABLET BY MOUTH DAILY amlodipine 5 mg tablet 5 mg PO DAILY losartan 50 mg Tablet 50 mg PO DAILY Qty: 0 insulin lispro [Humalog U-100 Insulin] 100 unit/mL solution 2 unit continuous subcutaneous infusion DAILY albuterol sulfate [Ventolin HFA] 90 mcg/actuation HFA aerosol inhaler 2 puff INHALATION Q6H PRN (Reason: Shortness Of Breath Or Wheezing) Patient Comments: INHALE 2 PUFFS PO Q SIX H PRF SHORTNESS OF BREATH/WHEEZING Referrals: Thompson Valadez MD [Primary Care Provider] - Stand Alone Forms: Patient Portal/API
--- NOTE | 2023-04-30 01:29 | DI.CT.S_ITS ---
PROCEDURE: CT ABDOMEN PELVIS WO CON INDICATIONS: RLQ pain; question appendicitis TECHNIQUE: Noncontrast 5 mm thick sections acquired from the diaphragms to the symphysis. 5 mm coronal and sagittal reformats were then performed. For radiation dose reduction, the following was used: automated exposure control, adjustment of mA and/or kV according to patient size. COMPARISON: [facility], CT, CT CHEST ABD PEL WO CON, 10/12/2022, 2:57. FINDINGS: Image quality: Excellent. Lung bases: There is mild dependent atelectasis. Heart: Heart is normal in size. ABDOMEN: Liver: Noncontrast evaluation of the liver redemonstrates an oval hypoattenuating mass posteriorly in the left hepatic lobe measuring up to 8.1 x 7.4 cm in transverse dimension by 7.4 cm in craniocaudal dimension. Gallbladder: Within normal limits without calcified gallstones. Biliary ducts: No biliary ductal dilatation. Pancreas: Unremarkable. Spleen: Normal in size. Adrenal Glands: No adrenal nodules. Kidneys and Ureters: No hydronephrosis. No nephrolithiasis. Stomach and Bowel: Stomach, small bowel loops, and colon are normal in caliber and wall thickness. The appendix is normal. Peritoneum: No abnormal intraperitoneal fluid. No free air. Ventral Wall: No hernia. Abdominal Nodes: No retroperitoneal or mesenteric adenopathy by size criteria. Vessels: Aorta and inferior vena cava are normal in size. PELVIS: Pelvic Organs: Unremarkable. Bladder: Unremarkable. Pelvic Nodes: No enlarged lymph nodes. Miscellaneous: No inguinal hernias are seen. Bones: Visualized osseous structures demonstrate no suspicious focal lesions. IMPRESSION: 1. No definite acute intra-abdominal abnormality. Specifically, no evidence of appendicitis. 2. Hypoattenuating mass within the left hepatic lobe measuring up to 8.1 x 7.4 cm. The findings are slightly increased in size compared to the prior study. Recommend further evaluation with a liver protocol MRI when clinically feasible. Dictated by: Pastor Goyal M.D. on 04/30/2023 at 2:04 Approved by: Pastor Goyal M.D. on 04/30/2023 at 2:10
[2023-04-30] MEDS: SODIUM CHLORIDE 0.9% 1,000 ML 1000 ML IV (01:35)
[2023-04-30 01:37] VITALS: BP 154/98; PULSE 82; O2SAT 98
[2023-04-30 02:00] VITALS: BP 136/79; PULSE 76; O2SAT 98
[2023-04-30 02:30] VITALS: BP 164/85; PULSE 72; O2SAT 98
[2023-04-30 03:00] VITALS: BP 158/91; PULSE 77; O2SAT 98
== END 2023-04-30 03:18 | disposition home or self-care (01) ==
PROVIDERS: Emergency Provider Emergency Medicine; PCP Family Medicine
DX: E10.65 Type 1 diabetes mellitus with hyperglycemia (principal); R16.0 Hepatomegaly, not elsewhere classified; R10.31 Right lower quadrant pain; R11.0 Nausea
CPT/HCPCS: 36415; 74176; 80053; 81003; 81015; 82962; 83690; 85025; 96360; 99284

== ENCOUNTER → 2023-05-22 16:46 | Outpatient (CLI) | payer OTHER, SELFPAY ==
[2022-10-12 17:10] VITALS: BMI 27.7
== END ==
PROVIDERS: PCP Family Medicine; Visit Provider Physician Assistant
DX: J02.9 Acute pharyngitis, unspecified (principal)
CPT/HCPCS: 87070

== ENCOUNTER 2025-03-20 15:15 | Emergency (ER) | payer OTHER, SELFPAY ==
[2022-10-12 17:10] VITALS: BMI 27.7
[2025-03-20 16:20] VITALS: BP 143/86; PULSE 94; RESP 16; TEMP 36.9; O2SAT 98; BMI 28.8
[2025-03-20 16:59] LABS: Add Manual Diff / Slide Review NO; Hematocrit 42.4 % (41-53); Hemoglobin 15.0 g/dL (13.5-17.5); Lymphocytes Absolute Auto 1600 /uL (1100-4500); Mean Corpuscular HGB Conc 35.4 % (30-36); Mean Corpuscular Hemoglobin 30.8 PG (26-34); Mean Corpuscular Volume 86.9 fL (80-100); Platelet Count 151 X10^3/uL (150-400)
[2025-03-20 18:49] LABS: Alanine Aminotransferase 19 IU/L (<50); Albumin 4.3 g/dL (3.5-5.0); Albumin Globulin Ratio 1.3 (1.0-2.8); Alkaline Phosphatase 77 U/L (38-126); Blood Urea Nitrogen 27 mg/dL (9-20); Calcium 8.9 mg/dL (8.4-10.2); Carbon Dioxide 20 mmol/L (22-32); Chloride 108 mmol/L (98-107); Estimated Glomerular Filt Rate 25 mL/min (>60); Globulin 3.3 g/dL (1.7-4.1); Glucose 141 mg/dL (70-99); HEMOLYSIS 25 (0-50); Lipase 52 U/L (23-300); Potassium 4.8 mmol/L (3.4-5.1); Sodium 138 mmol/L (137-145); Total Protein 7.6 g/dL (6.3-8.2)
--- NOTE | 2025-03-20 19:45 | ED.ABDPAIN ---
HPI - Abdominal Pain General Chief Complaint: Abdominal Pain Stated Complaint: burning RUQ pain Time Seen by Provider: 03/20/25 17:25 Source: patient Mode of arrival: Family Vehicle History of Present Illness HPI narrative: 50-year-old male patient with a history of insulin-dependent diabetes, hypertension and stage III chronic renal injury who complains of right upper quadrant pain along with headache and slight dizziness. Related Data Home Medications ?Medication ?Instructions ?Recorded ?Confirmed losartan 50 mg tablet 50 mg PO DAILY Hypertension ##0 06/03/18 05/22/23 albuterol sulfate 90 mcg/actuation 2 puff inhalation Q6H PRN 04/21/19 05/22/23 aerosol inhaler (Ventolin HFA) Shortness Of Breath Or Wheezing insulin lispro 100 unit/mL 2 unit continuous subcutaneous 04/21/19 05/22/23 subcutaneous solution (Humalog infusion DAILY U-100 Insulin) amlodipine 5 mg tablet 5 mg PO DAILY 10/12/22 05/22/23 famotidine 20 mg tablet 20 mg PO DAILY 10/12/22 05/22/23 Allergies Allergy/AdvReac Type Severity Reaction Status Date / Time ketamine Allergy Unknown Verified 03/20/25 16:20 Opioids - Morphine Analogues AdvReac Severe Difficulty Verified 03/20/25 16:20 Breathing fentanyl AdvReac Intermediate Nausea Verified 03/20/25 16:20 Patient History Medical History (Updated 03/21/25 @ 00:06 by Be Jarvis MD) Neuropathy Retinopathy due to secondary diabetes Hypertension Insulin dependent diabetes mellitus Family History Grandfather Heart disease Heart attack Social History household members: none Smoking Status: Never smoker alcohol intake: current Smoking Status: Never smoker alcohol intake frequency: holidays/special occasions only Exam Narrative Exam Narrative: General: Alert and conversant. No distress. Appears well nourished and well hydrated Craniofacial: No evidence of trauma. Nontender and no swelling. Eyes: PERRLA EOMI conjunctiva clear Lungs: Clear to auscultation with good air movement. No wheezing, rales or rhonchi. No respiratory distress Cardiac: Regular rate and rhythm with no appreciable murmur or gallop Abdomen: Soft, nontender with no distention or masses. Normal bowel sounds. No rebound or guarding Genitourinary/pelvic: Musculoskeletal: Exam of the extremities, axial spine and ribcage reveals no deformity, bony tenderness or swelling. Range of motion intact Neuro: Alert and oriented. Cranial nerves, motor, sensory and cerebellar all grossly intact. No focal deficit Skin: Warm and normal color. No rashes Psychological: Normal affect and interaction. No evidence of delusion or psychosis. Normal mood. Initial Vital Signs Initial Vital Signs: Vital Signs Temperature 98.5 F 03/20/25 16:20 Pulse Rate 94 H 03/20/25 16:20 Respiratory Rate 16 03/20/25 16:20 Blood Pressure 143/86 H 03/20/25 16:20 Pulse Oximetry 98 03/20/25 16:20 Oxygen Delivery Method Room Air 03/20/25 16:20 Course Orders Ordered: ED Orders 03/20/25 16:43 Complete Blood Count AUTO DIFF Stat Comprehensive Metabolic Panel Stat Lipase Stat Ondansetron HCl (Ondansetron 4 Mg/2 Ml Inj) 4 mg IV NOW PRN PRN Reason: Nausea And Vomiting Ondansetron HCl (Ondansetron 4 Mg Odt) 4 mg PO NOW PRN PRN Reason: Nausea And Vomiting Vital Signs Vital signs: Vital Signs - 8 hr 03/20/25 16:20 03/20/25 23:25 03/20/25 23:26 Temperature 98.5 F Pulse Rate 94 H 76 72 Respiratory Rate 16 18 Blood Pressure 143/86 H Pulse Oximetry 98 98 98 Oxygen Delivery Method Room Air Room Air 03/20/25 23:26 Temperature Pulse Rate Respiratory Rate Blood Pressure 180/97 H Pulse Oximetry Oxygen Delivery Method MDM - Abdominal Pain Differential Diagnosis Differential diagnosis: Likely abdominal pain, calculus of kidney, constipation, gastroenteritis and small bowel obstruction Condition is:: Improved Medical Records Attestation: I reviewed the patient's medical records. Lab Data Attestation: I reviewed the patient's lab results. Lab results narrative: Essentially unremarkable. He has stable chronic kidney injury. Lab work is otherwise reassuring 03/20/25 16:43 03/20/25 16:43 Labs: Lab Results 03/20/25 Range/Units 16:43 WBC 6.1 (4.5-11.0) X10^3/uL RBC 4.87 (4.5-5.9) X10^6/uL Hgb 15.0 (13.5-17.5) g/dL Hct 42.4 (41-53) % MCV 86.9 (80-100) fL MCH 30.8 (26-34) PG MCHC 35.4 (30-36) % RDW 13.3 (11.6-14.8) % Plt Count 151 (150-400) X10^3/uL Neut % (Auto) 63.6 (50-75) % Lymph % (Auto) 26.2 (25-40) % [place] % (Auto) 6.7 (3-14) % Eos % (Auto) 2.4 (2-4) % Baso % (Auto) 1.1 (0-2) % Neut # (Auto) 3900 (4946-0354) /uL Lymph # (Auto) 1600 (0721-7548) /uL [place] # (Auto) 400 (0-900) /uL Eos # (Auto) 100 (0-450) /uL Baso # (Auto) 100 (0-100) /uL Sodium 138 (137-145) mmol/L Potassium 4.8 (3.4-5.1) mmol/L Chloride 108 H (98-107) mmol/L Carbon Dioxide 20 L (22-32) mmol/L BUN 27 H (9-20) mg/dL Creatinine 2.94 H (0.66-1.25) mg/dL Estimated GFR 25 L (>60) mL/min BUN/Creatinine Ratio 9.2 (6-22) Glucose 141 H (70-99) mg/dL Calcium 8.9 (8.4-10.2) mg/dL Total Bilirubin 1.1 (0.2-1.3) mg/dL AST 24 (17-59) IU/L ALT 19 (<50) IU/L Alkaline Phosphatase 77 (38-126) U/L Total Protein 7.6 (6.3-8.2) g/dL Albumin 4.3 (3.5-5.0) g/dL Globulin 3.3 (1.7-4.1) g/dL Albumin/Globulin Ratio 1.3 (1.0-2.8) Lipase 52 (23-300) U/L Point of care testing: Urine Dip Bedside Urine Glucose Negative Bedside Urine Bilirubin - Negative Bedside Urine Ketone - Negative Urine Specific [place] 1.020 Bedside Urine Occult Blood - Negative Bedside Urine pH 5.5 Bedside Urine Protein ++ 100 Bedside Urine Urobilinogen - Negative Bedside Urine Nitrite - Negative Bedside Urine Leukocytes - Negative Esterase MDM Narrative Medical decision making narrative: Right upper quadrant pain which is resolving. Unknown cause. And reveals mild tenderness but no rebound or guarding. Lab work reassuring. Possible trapped gas or other irritation. No indication to do CT scanning or imaging in the ER. Patient given home care instructions to monitor symptoms and follow up with primary care. Return to the ER if worse Discharge Plan Departure Patient Disposition: Home Clinical Impression: Abdominal pain, acute, right upper quadrant Instructions: Acute Abdominal Pain Activity Restrictions/Additional Instructions: Assessment: Right upper quadrant pain which is resolving. Lab work and physical exam reassuring. Does not appear to be a surgical problem or emergent problem. Possibly resolved trapped gas. Plan: Continue current medications and monitor symptoms. Hydration. Follow up with your doctor if not improving. Return to the ER if worse Prescriptions: No Action famotidine 20 mg tablet 20 mg PO DAILY Patient Comments: TAKE 1 TABLET BY MOUTH DAILY amlodipine 5 mg tablet 5 mg PO DAILY losartan 50 mg Tablet 50 mg PO DAILY Qty: 0 insulin lispro [Humalog U-100 Insulin] 100 unit/mL solution 2 unit continuous subcutaneous infusion DAILY albuterol sulfate [Ventolin HFA] 90 mcg/actuation HFA aerosol inhaler 2 puff INHALATION Q6H PRN (Reason: Shortness Of Breath Or Wheezing) Patient Comments: INHALE 2 PUFFS PO Q SIX H PRF SHORTNESS OF BREATH/WHEEZING Referrals: Thompson Valadez MD [Primary Care Provider, Family Practice] Stand Alone Forms: Patient Portal/API
[2025-03-20 23:25] VITALS: PULSE 76; O2SAT 98
[2025-03-20 23:26] VITALS: BP 180/97; PULSE 72; RESP 18; O2SAT 98
[2025-03-20 23:30] VITALS: BP 153/86; PULSE 69; RESP 16; O2SAT 99
== END 2025-03-21 00:13 | disposition home or self-care (01) ==
PROVIDERS: Family Medicine; Emergency Provider Emergency Medicine; PCP Family Medicine
DX: R10.11 Right upper quadrant pain (principal)
CPT/HCPCS: 80053; 81003; 83690; 85025; 99282